=== PATIENT | female | born 1945 | race African-American/Black ===

== ENCOUNTER 2017-02-14 19:49 | Inpatient (IN) | payer OTHER ==
[2017-02-14] MEDS ORDERED: traMADol HCL 50 MG TABLET PO ONE (20:43)
--- NOTE | 2017-02-14 20:48 | PDOC ---
History of Present Illness <Coco Vallecillo - Last Filed: 02/14/17 22:28> <Purnima Carrero - Last Filed: 02/14/17 22:47> - General History Source: Patient Exam Limitations: No Limitations - History of Present Illness Initial Comments: 02/14/17 20:44 Patient is a 71 year old female with h/o HTN, PVD, b/l lower ext ulcer, Vit D diff, anemia c/o b/l lower ext swelling and pain. States she has had a chronic wound for years, doing wound care in the wound center, has worsened lately with more pain, discharge. Pain is 10/10, sharp, continuos, stabbing, in the calf. States the wound does not hurt. She was seen in the Wound center on Thursday and inst to come to the ED for admission. Patient just completed course of Augmentin. Denies fever, chills, nausea, vomiting PMD: Dr Shannon Wound: Dr. Kevin PMHx: as above PSocHx: neg cig, drug, etoh ALL: Iodine GENERAL/CONSTITUTIONAL: [No fever or chills. No weakness. No weight change.] HEAD, EYES, EARS, NOSE AND THROAT: [No change in vision. No ear pain or discharge. No sore throat.] CARDIOVASCULAR: [No chest pain or shortness of breath.] RESPIRATORY: [No cough, wheezing, or hemoptysis.] GASTROINTESTINAL: [No nausea, vomiting, diarrhea or constipation. No rectal bleeding.] GENITOURINARY: [No dysuria, frequency, or change in urination.] MUSCULOSKELETAL: [No joint or muscle swelling or pain. No neck or back pain.] SKIN AND BREASTS: (+) b/l lower ext wound, NEUROLOGIC: [No headache, vertigo, loss of consciousness, or loss of sensation.] PSYCHIATRIC: [No depression or anxiety.] ENDOCRINE: [No increased thirst. No abnormal weight change.] HEMATOLOGIC/LYMPHATIC: [No anemia, easy bleeding, or history of blood clots.] ALLERGIC/IMMUNOLOGIC: [No hives or skin allergy. No latex allergy.] GENERAL: [The patient is awake, alert, and fully oriented, in no acute distress. ] HEAD: [Normal with no signs of trauma.] EYES: [Pupils equal, round and reactive to light, extraocular movements intact, sclera anicteric, conjunctiva clear.] ENT: [Ears normal, nares patent, oropharynx clear without exudates. Moist mucous membranes.] NECK: [Normal range of motion, supple without lymphadenopathy, JVD, or masses.] LUNGS: [Breath sounds equal, clear to auscultation bilaterally. No wheezes, and no crackles.] HEART: [Regular rate and rhythm, normal S1 and S2 without murmur, rub.] ABDOMEN: [Soft, nontender, normoactive bowel sounds. No guarding, no rebound. No masses.] EXTREMITIES: [Normal range of motion, mild edema. No clubbing or cyanosis.(+) tenderness to b/l calves, (+) warmth (+) erythema, wound with necrotic tissue. (+) yellow discharge from wounds NEUROLOGICAL: [Cranial nerves II through XII grossly intact. Normal speech, normal gait.] PSYCH: [Normal mood, normal affect.] SKIN: [Warm, leg lower ext with wound 9x 7cm, right with 5x 7cm wound, hyperpigmention of the lower ext ] <Fay Bassett - Last Filed: 02/15/17 00:33> - General Chief Complaint: Wound Stated Complaint: PAIN Time Seen by Provider: 02/14/17 20:24 Past History <Coco Vallecillo - Last Filed: 02/14/17 22:28> <Purnima Carrero - Last Filed: 02/14/17 22:47> - Past Medical History COPD: No HTN: Yes - Suicide/Smoking/Psychosocial Hx Smoking History: Never smoked Have you smoked in the past 12 months: No Hx Alcohol Use: No Drug/Substance Use Hx: No <Fay Bassett - Last Filed: 02/15/17 00:33> - Past Medical History Allergies/Adverse Reactions: Allergies Allergy/AdvReac Type Severity Reaction Status Date / Time iodine Allergy Itching Verified 02/14/17 19:56 Home Medications: Ambulatory Orders Aspirin [Aspirin EC] 1 tab PO DAILY 06/02/14 Losartan Potassium 50 mg PO DAILY 11/16/15 Acetaminophen [Tylenol -] 500 mg PO Q4H PRN 02/14/17 Ferrous Sulfate [Feosol] 325 mg PO BID 02/14/17 Loratadine 10 mg PO DAILY 02/14/17 Metoprolol Tartrate 50 mg PO DAILY 02/14/17 *Physical Exam - Vital Signs Last Vital Signs Temp Pulse Resp BP Pulse Ox 97.6 F 82 18 181/65 99 02/14/17 19:52 02/14/17 19:52 02/14/17 19:52 02/14/17 19:52 02/14/17 19:52 <Coco Vallecillo - Last Filed: 02/14/17 22:28> - Vital Signs Last Vital Signs Temp Pulse Resp BP Pulse Ox 97.6 F 82 18 181/65 99 02/14/17 19:52 02/14/17 19:52 02/14/17 19:52 02/14/17 19:52 02/14/17 19:52 <Purnima Carrero - Last Filed: 02/14/17 22:47> - Vital Signs Last Vital Signs Temp Pulse Resp BP Pulse Ox 97.6 F 82 18 181/65 99 02/14/17 19:52 02/14/17 19:52 02/14/17 19:52 02/14/17 19:52 02/14/17 19:52 <Fay Bassett - Last Filed: 02/15/17 00:33> ED Treatment Course - LABORATORY CBC & Chemistry Diagram: 02/14/17 21:37 02/14/17 21:37 - ADDITIONAL ORDERS Additional order review: Laboratory Results 02/14/17 21:37 Sodium 134 L Potassium 4.2 Chloride 100 Carbon Dioxide 28 Anion Gap 6 L BUN 8 Creatinine 0.6 Creat Clearance w eGFR > 60 Random Glucose 116 H Calcium 8.3 L Total Bilirubin 0.4 AST 28 ALT 21 Alkaline Phosphatase 93 Total Protein 8.0 Albumin 2.7 L 02/14/17 21:37 RBC 3.38 L MCV 79.8 L MCHC 32.2 RDW 15.0 MPV 6.3 L Neutrophils % 67.1 Lymphocytes % 23.0 Monocytes % 7.1 Eosinophils % 2.2 Basophils % 0.6 - Medications Given in the ED: ED Medications Discontinued Medications Generic Name Dose Route Start Last Admin Trade Name Freq PRN Reason Stop Dose Admin Tramadol HCl 50 mg 02/14/17 20:43 02/14/17 21:18 Ultram - PO 02/14/17 20:44 50 mg ONCE ONE Administration <Coco Vallecillo - Last Filed: 02/14/17 22:28> - LABORATORY CBC & Chemistry Diagram: 02/14/17 21:37 02/14/17 21:37 - ADDITIONAL ORDERS Additional order review: Laboratory Results 02/14/17 21:37 Sodium 134 L Potassium 4.2 Chloride 100 Carbon Dioxide 28 Anion Gap 6 L BUN 8 Creatinine 0.6 Creat Clearance w eGFR > 60 Random Glucose 116 H Calcium 8.3 L Total Bilirubin 0.4 AST 28 ALT 21 Alkaline Phosphatase 93 Total Protein 8.0 Albumin 2.7 L 02/14/17 21:37 RBC 3.38 L MCV 79.8 L MCHC 32.2 RDW 15.0 MPV 6.3 L Neutrophils % 67.1 Lymphocytes % 23.0 Monocytes % 7.1 Eosinophils % 2.2 Basophils % 0.6 - Medications Given in the ED: ED Medications Discontinued Medications Generic Name Dose Route Start Last Admin Trade Name Freq PRN Reason Stop Dose Admin Tramadol HCl 50 mg 02/14/17 20:43 02/14/17 21:18 Ultram - PO 02/14/17 20:44 50 mg ONCE ONE Administration <Purnima Carrero - Last Filed: 02/14/17 22:47> - LABORATORY CBC & Chemistry Diagram: 02/14/17 21:37 02/14/17 21:37 - RADIOLOGY Radiology Studies Ordered: Category Date Time Status DUPLEX VASCUL US-2LEGS [US] Stat Ultrasound 02/14/17 20:43 Ordered <Fay Bassett - Last Filed: 02/15/17 00:33> Medical Decision Making - Medical Decision Making 02/14/17 22:28 Patient Name: IRVING LERMA THIS IS A PRELIMINARY REPORT FROM [facility] DATE OF SERVICE: 2017-02-14 21:06:15 IMAGES: 45 EXAM: US LOWER EXTREMITY VENOUS DOPPLER HISTORY: Bilateral leg swelling COMPARISON: None. FINDINGS: Bilaterally, no evidence of DVT noted. Mild bilateral inguinal adenopathy. Bilateral calf soft tissue swelling. <Coco Vallecillo - Last Filed: 02/14/17 22:28> - Medical Decision Making 02/14/17 22:32 10:30pm- Call was placed to Dr. Turner's answering service, awaiting call back. 02/14/17 22:48 Exam: US LOWER EXTREMITY VENOUS DOPPLER Read by: Dr. Randy Hart FINDINGS: Bilaterally, no evidence of DVT noted. Mild bilateral inguinal adenopathy. Bilateral calf soft tissue swelling. <Purnima Carrero - Last Filed: 02/14/17 22:47> - Medical Decision Making 02/14/17 20:44 Patient is a 71 year old female with h/o HTN, PVD, b/l lower ext ulcer, Vit D diff, anemia c/o b/l lower ext swelling and pain, sent for admission for the wound. labs, doppler leg pain meds antibiotics consult with Dr. Kevin 02/14/17 21:[address] Turner and will admit when the labs resulted 02/14/17 22:43 Case d/w with Dr. Turner labs dicussed will admit 02/14/17 22:45 Laboratory Tests 02/14/17 02/14/17 21:37 21:37 WBC 6.5 Hgb 8.7 L Hct 27.0 L Plt Count 363 Sodium 134 L Potassium 4.2 Chloride 100 Carbon Dioxide 28 Anion Gap 6 L BUN 8 Creatinine 0.6 Random Glucose 116 H 02/15/17 00:31 EKG SR rate 77, NAD, (-) ST-T wave changes CXR neg as read by nj Doppler neg for DVT <Fay Bassett - Last Filed: 02/15/17 00:33> *DC/Admit/Observation/Transfer <Coco Vallecillo - Last Filed: 02/14/17 22:28> - Attestations Scribe Attestion: 02/14/17 22:32 Documentation prepared by Purnima Carrero, acting as chief medical physicist for Coco Vallecillo MD. <Purnima Carrero - Last Filed: 02/14/17 22:47> - Discharge Dispostion Admit: Yes <Fay Bassett - Last Filed: 02/15/17 00:33> Diagnosis at time of Disposition: Infected wound - Discharge Dispostion Condition at time of disposition: Stable
[2017-02-14] MEDS ORDERED: traMADol HCL 50 MG TABLET ONE (21:12)
[2017-02-14 21:44] LABS: BASOPHIL 0.6 % (0-2.0); EOSINOPHIL 2.2 % (0-4.5); MCH 25.7 pg (25.7-33.7); MCHC 32.2 g/dl (32.0-36.0); MEAN CELL VOLUME 79.8 fl (80-96); MEAN PLT VOLUME 6.3 fl (7.5-11.1); NEUTROPHILS 67.1 % (42.8-82.8); PLATELET COUNT 363 K/MM3 (134-434); WHITE BLOOD COUNT 6.5 K/mm3 (4.0-10.0)
[2017-02-14 22:15] LABS: ALBUMIN 2.7 g/dl (3.4-5.0); ALK PHOS 93 U/L (45-117); ANION GAP 6 (8-16); BILIRUBIN,TOTAL 0.4 mg/dL (0.2-1.0); CALCIUM 8.3 mg/dL (8.5-10.1); CO2 28 mmol/L (21-32); CREATININE 0.6 mg/dL (0.55-1.02); GLUCOSE,RANDOM 116 mg/dL (74-106); SGOT/AST 28 U/L (15-37); SGPT/ALT 21 U/L (12-78)
[2017-02-14] MEDS ORDERED: VANCOMYCIN 1,000 MG in DEXTROSE 5%-WATER - 250 ML IVPB ONE (22:29)
[2017-02-14] MEDS ORDERED: AMPICILLIN NA/SULBACTAM NA 3 GM in SODIUM CHLORIDE 100 ML IVPB ONE (22:29)
[2017-02-14] MEDS ORDERED: VANCOMYCIN 1 GRAM (PRE-DOCKED) 1,000 MG/250 ML BAG IVPB ONE (22:49)
[2017-02-15 00:17] VITALS: BMI 23.0
[2017-02-15] MEDS ORDERED: IBUPROFEN 600 MG TABLET (FP) PO ONE (00:32)
[2017-02-15] MEDS: ACETAMINOPHEN 325 MG TABLET (FP) PO PRN ×3 (00:58→15:47)
[2017-02-15] MEDS: AMINO ACIDS/PROTEIN HYDROLYS 30 ML LIQUID.PKT PO SCH ×2 (08:05→17:42)
[2017-02-15 08:29] LABS: ALBUMIN 2.5 g/dl (3.4-5.0); CALCIUM 8.4 mg/dL (8.5-10.1)
[2017-02-15 08:32] LABS: ALK PHOS 81 U/L (45-117); ANION GAP 7 (8-16); BILIRUBIN,TOTAL 0.5 mg/dL (0.2-1.0); CO2 30 mmol/L (21-32); CREATININE 0.6 mg/dL (0.55-1.02); GLUCOSE,RANDOM 127 mg/dL (74-106); SGOT/AST 28 U/L (15-37); SGPT/ALT 19 U/L (12-78); TOT PROT 7.1 g/dl (6.4-8.2)
[2017-02-15 08:41] LABS: MCH 26.4 pg (25.7-33.7); MCHC 32.5 g/dl (32.0-36.0); MEAN CELL VOLUME 81.1 fl (80-96); MEAN PLT VOLUME 6.7 fl (7.5-11.1); PLATELET COUNT 309 K/MM3 (134-434); RDW 14.6 % (11.6-15.6); WHITE BLOOD COUNT 7.2 K/mm3 (4.0-10.0)
--- NOTE | 2017-02-15 08:47 | EKG ---
Test Reason : Blood Pressure : / mmHG Vent. Rate : 077 BPM Atrial Rate : 077 BPM P-R Int : 168 ms QRS Dur : 078 ms QT Int : 360 ms P-R-T Axes : 027 042 039 degrees QTc Int : 407 ms NORMAL SINUS RHYTHM CANNOT RULE OUT ANTERIOR INFARCT , AGE UNDETERMINED ABNORMAL ECG NO PREVIOUS ECGS AVAILABLE Confirmed by ELPIDIO STOUT MD ([id number]) on 02/15/2017 8:47:29 AM Referred By: Confirmed By:ELPIDIO STOUT MD
[2017-02-15] MEDS: HEPARIN NA (PORCINE) 5,000 UNITS/ML 1ML VIAL SQ SCH ×2 (09:32→22:03)
[2017-02-15] MEDS: METOPROLOL TARTRATE 50 MG TABLET (FP) PO SCH (09:32)
[2017-02-15] MEDS: LOSARTAN POTASSIUM 50 MG TABLET (FP) PO SCH (09:32)
--- NOTE | 2017-02-15 11:53 | HP ---
Admitting History and Physical - Primary Care Physician PCP: Mireya Turner - Admission Chief Complaint: WORSENING LEG ULCERS History of Present Illness: Patient is a 71 year old female with h/o HTN, PVD, b/l lower ext ulcer, Vit D diff, anemia c/o b/l lower ext swelling and pain. States she has had a chronic wound for years, doing wound care in the wound center, has worsened lately with more pain, discharge. Pain is 10/10, sharp, continuos, stabbing, in the calf. States the wound does not hurt. She was seen in the Wound center on Thursday and inst to come to the ED for admission. Patient just completed course of Augmentin. Denies fever, chills, nausea, vomiting History Source: Patient Limitations to Obtaining History: No Limitations - Past Medical History Cardiovascular: Yes: HTN - Smoking History Smoking history: Never smoked Have you smoked in the past 12 months: No - Alcohol/Substance Use Hx Alcohol Use: No Home Medications - Allergies Allergies/Adverse Reactions: Allergies Allergy/AdvReac Type Severity Reaction Status Date / Time iodine Allergy Itching Verified 02/14/17 19:56 - Home Medications Home Medications: Ambulatory Orders Aspirin [Aspirin EC] 1 tab PO DAILY 06/02/14 Losartan Potassium 50 mg PO DAILY 11/16/15 Acetaminophen [Tylenol -] 500 mg PO Q4H PRN 02/14/17 Ferrous Sulfate [Feosol] 325 mg PO BID 02/14/17 Loratadine 10 mg PO DAILY 02/14/17 Metoprolol Tartrate 50 mg PO DAILY 02/14/17 Review of Systems - Review of Systems Constitutional: reports: No Symptoms Eyes: reports: No Symptoms HENT: reports: No Symptoms Neck: reports: No Symptoms Cardiovascular: reports: No Symptoms Respiratory: reports: No Symptoms Gastrointestinal: reports: No Symptoms Genitourinary: reports: No Symptoms Musculoskeletal: reports: No Symptoms Integumentary: reports: Rash, Wound Neurological: reports: No Symptoms Endocrine: reports: No Symptoms Hematology/Lymphatic: reports: No Symptoms Psychiatric: reports: No Symptoms Physical Examination Vital Signs: Vital Signs Temperature 98.3 F 02/15/17 06:00 Pulse Rate 77 02/15/17 06:00 Respiratory Rate 18 02/15/17 06:00 Blood Pressure 147/62 02/15/17 06:00 O2 Sat by Pulse Oximetry (%) 100 02/15/17 00:22 Constitutional: Yes: Mild Distress Eyes: Yes: WNL HENT: Yes: WNL Neck: Yes: WNL Cardiovascular: Yes: WNL Respiratory: Yes: WNL Gastrointestinal: Yes: WNL Renal/: Yes: WNL Musculoskeletal: Yes: WNL Extremities: Yes: Other Edema: No Peripheral Pulses WNL: Yes Integumentary: Yes: Pressure Ulcer, Venous Stasis Changes, Other Wound/Incision: Yes: Dressing Dry and Intact Neurological: Yes: WNL ...Motor Strength: WNL Psychiatric: Yes: WNL Labs: CBC, BMP 02/15/17 07:00 02/15/17 07:00 Imaging - Results Ultrasound: Report Reviewed Problem List - Problems (1) Infected wound Code(s): T14.8XXA - OTHER INJURY OF UNSPECIFIED BODY REGION, INITIAL ENCOUNTER; L08.9 - LOCAL INFECTION OF THE SKIN AND SUBCUTANEOUS TISSUE, UNSP (2) 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
[2017-02-15 13:52] LABS: ERYTHROCYTE SEDIMENTATION RATE 40 mm/hr (0-30)
--- NOTE | 2017-02-15 14:45 | CON.ID ---
Consult Consult Specialty:: Infectious Disease - History of Present Illness Chief Complaint: LE ulcers with pain/drainage History of Present Illness: 71 y.o. female with history of HTN, anemia, PVD with chronic nonhealing b/l LE ulcers (initially noted 2001 with periods of healing) being followed in wound care clinic . She has been having severe pain and drainage for over a week and has completed a one wk course of augmentin (last dose on thursday). Pt is still with pain and malodorous drainage from the ulcers. Denies fever or chills and has no other complaints. - History Source History Provided By: Patient Limitations to Obtaining History: No Limitations - Past Medical History Cardio/Vascular: Yes: HTN Additional Medical History: PVD - Alcohol/Substance Use Hx Alcohol Use: No - Smoking History Smoking history: Never smoked Have you smoked in the past 12 months: No - Social History Usual Living Arrangement: Other (with her daughter) History of Recent Travel: No Home Medications - Allergies Allergies/Adverse Reactions: Allergies Allergy/AdvReac Type Severity Reaction Status Date / Time iodine Allergy Itching Verified 02/14/17 19:56 - Home Medications Home Medications: Ambulatory Orders Aspirin [Aspirin EC] 1 tab PO DAILY 06/02/14 Losartan Potassium 50 mg PO DAILY 11/16/15 Acetaminophen [Tylenol -] 500 mg PO Q4H PRN 02/14/17 Ferrous Sulfate [Feosol] 325 mg PO BID 02/14/17 Loratadine 10 mg PO DAILY 02/14/17 Metoprolol Tartrate 50 mg PO DAILY 02/14/17 Review of Systems - Review of Systems Constitutional: reports: No Symptoms Eyes: reports: No Symptoms HENT: reports: No Symptoms Neck: reports: No Symptoms Cardiovascular: reports: No Symptoms Respiratory: reports: No Symptoms Gastrointestinal: reports: No Symptoms Genitourinary: reports: No Symptoms Breasts: reports: No Symptoms Reported Musculoskeletal: reports: No Symptoms Integumentary: reports: Wound (b/l LE ulcers with pain in calf and drainage) Neurological: reports: No Symptoms Endocrine: reports: No Symptoms Hematology/Lymphatic: reports: No Symptoms Psychiatric: reports: No Symptoms Physical Exam Vital Signs: Vital Signs Temperature 99.0 F 02/15/17 09:00 Pulse Rate 84 02/15/17 09:00 Respiratory Rate 20 02/15/17 09:00 Blood Pressure 158/78 02/15/17 09:00 O2 Sat by Pulse Oximetry (%) 100 02/15/17 09:00 Constitutional: Yes: No Distress, Calm Neck: Yes: Supple Cardiovascular: Yes: Regular Rate and Rhythm Respiratory: Yes: CTA Bilaterally Gastrointestinal: Yes: Normal Bowel Sounds, Soft Renal/: Yes: WNL Musculoskeletal: Yes: WNL Extremities: Yes: Other (b/l LE ulcers, hyperpigmentation) Integumentary: Yes: Venous Stasis Changes (LLE 16x18 cm ulcer with chronic hyperpigmentation, yellow malodorous drainage and pain, warm to touch, extending from upper ankle to calves RLE 8x6 cm ulcer with malodor, tender LE b/ l) Wound/Incision: Yes: Draining (yellow discharge) Neurological: Yes: Alert, Oriented Psychiatric: Yes: Alert Labs: CBC, BMP 02/15/17 07:00 02/15/17 07:00 Imaging - Results Other: Report Reviewed (LE dopplers (-) for DVT b/l) Problem List - Problems (1) Infected wound Code(s): T14.8XXA - OTHER INJURY OF UNSPECIFIED BODY REGION, INITIAL ENCOUNTER; L08.9 - LOCAL INFECTION OF THE SKIN AND SUBCUTANEOUS TISSUE, UNSP (2) 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 female with PVD and chronic nonhealing b/l LE ulcers/stasis dermatitis admitted for pain and malodorous drainage - suggest continue Unasyn for now , add doxycycline po - obtain wound cultures - wound care evaluation - pain control - vascular workup
[2017-02-15] MEDS ORDERED: DOXYCYCLINE HYCLATE 100 MG CAPSULE PO SCH (16:00)
[2017-02-15] MEDS: AMPICILLIN NA/SULBACTAM NA 3 GM in SODIUM CHLORIDE 100 ML IVPB SCH ×2 (17:42→22:00)
[2017-02-15] MEDS: DOXYCYCLINE HYCLATE 100 MG CAPSULE PO SCH (17:43)
[2017-02-16] MEDS: AMPICILLIN NA/SULBACTAM NA 3 GM in SODIUM CHLORIDE 100 ML IVPB SCH ×4 (02:29→22:04)
[2017-02-16] MEDS: ACETAMINOPHEN 325 MG TABLET (FP) PO PRN ×2 (05:06→15:00)
[2017-02-16] MEDS ORDERED: PT OWN MED DRAWER 7, Y5N ONE ×3 (08:24→21:50)
[2017-02-16] MEDS: AMINO ACIDS/PROTEIN HYDROLYS 30 ML LIQUID.PKT PO SCH ×2 (08:28→17:48)
[2017-02-16] MEDS: HEPARIN NA (PORCINE) 5,000 UNITS/ML 1ML VIAL SQ SCH ×2 (10:06→22:05)
[2017-02-16] MEDS: METOPROLOL TARTRATE 50 MG TABLET (FP) PO SCH (10:06)
[2017-02-16] MEDS: LOSARTAN POTASSIUM 50 MG TABLET (FP) PO SCH (10:06)
[2017-02-16] MEDS: DOXYCYCLINE HYCLATE 100 MG CAPSULE PO SCH ×2 (10:06→17:48)
--- NOTE | 2017-02-16 13:28 | CONSULT ---
Consult Consult Specialty:: Vascular surgery Referred by:: Dr. Escalona Reason for Consultation:: vascular ulcers bilatreral lower extremities - History of Present Illness History of Present Illness: 71F h/o HTN, PVD, b/l lower ext ulcer, Vit D diff, anemia c/o b/l lower ext swelling and pain. patient well known to wound care clinic presents to the ED after being sent from wound center for bilateral lower extremity worsening venous stasis ulcers. She states the wounds have worsened lately with more pain and discharge. Pain is 10/10, sharp, continuos, stabbing, in the calf. . Patient just completed course of Augmentin. Denies nausea vomiting chills chest pain or shortness of breath. Patient had a Tmax of 100.2 orally this morning at 0530. patient has a long standing history of non compliance with treatment. She does not wear compreession stockings and stays standing on her feet all day and does not elevate them. - History Source History Provided By: Patient, Medical Record Limitations to Obtaining History: No Limitations - Past Medical History Cardio/Vascular: Yes: HTN Additional Medical History: PVD - Alcohol/Substance Use Hx Alcohol Use: No - Smoking History Smoking history: Never smoked Have you smoked in the past 12 months: No - Social History Usual Living Arrangement: Other (with her daughter) History of Recent Travel: No Home Medications - Allergies Allergies/Adverse Reactions: Allergies Allergy/AdvReac Type Severity Reaction Status Date / Time iodine Allergy Itching Verified 02/14/17 19:56 - Home Medications Home Medications: Ambulatory Orders Aspirin [Aspirin EC] 1 tab PO DAILY 06/02/14 Losartan Potassium 50 mg PO DAILY 11/16/15 Acetaminophen [Tylenol -] 500 mg PO Q4H PRN 02/14/17 Ferrous Sulfate [Feosol] 325 mg PO BID 02/14/17 Loratadine 10 mg PO DAILY 02/14/17 Metoprolol Tartrate 50 mg PO DAILY 02/14/17 Review of Systems Findings/Remarks: fever. Bilateral lower extremity wounds worsening with drainage Physical Exam Vital Signs: Vital Signs Temperature 98.3 F 02/16/17 09:31 Pulse Rate 88 02/16/17 09:31 Respiratory Rate 20 02/16/17 09:31 Blood Pressure 151/65 02/16/17 09:31 O2 Sat by Pulse Oximetry (%) 100 02/16/17 09:00 Constitutional: Yes: Well Nourished, No Distress, Calm Eyes: Yes: Conjunctiva Clear HENT: Yes: Atraumatic Neck: Yes: Supple Cardiovascular: Yes: Regular Rate and Rhythm Respiratory: Yes: CTA Bilaterally Gastrointestinal: Yes: Soft Extremities: Yes: Other (Bounding popliteal pulses. RLE ulcer just above medial malleolus with necrotic skin edges, some granulation tissue, and fibrinous exudate. Dry No purulence. Warm. Good cap refill. LLE. large wound medially and posteriorly with necrotic skin edges some granulation tissue and fibrinous exudate. No purulence. Warm. Slightly foul smelling. serous drainage) Edema: No Peripheral Pulses WNL: Yes (DP pulses faint bilaterally. DP 2+ RLE LLE could not palpate 2/2 wound ) Neurological: Yes: Alert, Oriented Psychiatric: Yes: Alert, Oriented Labs: CBC, BMP 02/15/17 07:00 02/15/17 07:00 Imaging - Results Chest X-ray: Report Reviewed, Image Reviewed Ultrasound: Report Reviewed Assessment/Plan 71F with multiple medical problems and chronic venous stasis ulcers s/p venous ablation presents to the ED from wound care clinic for worsening pain and drainage of bilateral lower extremities especially the left leg. Problem List: HTN PVD-Venous chronic venous staisis ulcer-now possible infected Plan: ID consult appreciated continue ABx-doxycycline and unasyn dressing changes with santyl wet to dry dressing and HAWA wrap for compression will need to go to OR for debridement will schedule for this Thursday-patient informed Will need general anesthesia CTA to evaluate for arterial disease as a cause for non healing although non compliance is likely the biggest contributing factor-patient non smoker and not a diabetic. patient allergic to Iodine will premedicate with prednisone and benadryl and do CTA tomorrow AM at 8am already spoke with noc technician Full set of pre-op labs and type and screen Thursday morning patient seen and case discussed with attending Dr. Kevin
--- NOTE | 2017-02-16 15:05 | PN ---
Progress Note, Physician History of Present Illness: Pt c/o b/L LE pain. Mild temperature elevation to 100.2F early in the a.m. , currently afebrile. Denies any specific complaints. - Current Medication List Current Medications: Active Medications Acetaminophen (Tylenol -) 650 mg PO Q6H PRN PRN Reason: FEVER OR PAIN Last Admin: 02/16/17 05:06 Dose: 650 mg Amino Acids (Prosource No Carb Liquid Pkt) 30 ml PO BID@0800,1730 [facility] Last Admin: 02/16/17 08:28 Dose: 30 ml Collagenase (Santyl -) 1 applic TP DAILY [facility] Diphenhydramine HCl (Benadryl Injection -) 50 mg IVPUSH ONCE ONE Stop: 02/17/17 07:01 Doxycycline Hyclate (Vibramycin -) 100 mg PO BID@1000,1800 [facility] Last Admin: 02/16/17 10:06 Dose: 100 mg Heparin Sodium (Porcine) (Heparin -) 5,000 unit SQ BID [facility] Last Admin: 02/16/17 10:06 Dose: 5,000 unit Ampicillin Sodium/Sulbactam (Sodium 3 gm/ Sodium Chloride) 100 mls @ 200 mls/ hr IVPB Q6H-IV [facility] Last Admin: 02/16/17 09:27 Dose: 200 mls/hr Losartan Potassium (Cozaar -) 50 mg PO DAILY [facility] Last Admin: 02/16/17 10:06 Dose: 50 mg Metoprolol Tartrate (Lopressor -) 50 mg PO DAILY [facility] Last Admin: 02/16/17 10:06 Dose: 50 mg Prednisone 40 mg/ Prednisone (10 mg) 50 mg PO Q6H [facility] Stop: 02/17/17 07:01 - Objective Vital Signs: Vital Signs Temperature 98.3 F 02/16/17 09:31 Pulse Rate 88 02/16/17 09:31 Respiratory Rate 20 02/16/17 09:31 Blood Pressure 151/65 02/16/17 09:31 O2 Sat by Pulse Oximetry (%) 100 02/16/17 09:00 Constitutional: Yes: No Distress Cardiovascular: Yes: Regular Rate and Rhythm Respiratory: Yes: Regular Gastrointestinal: Yes: Normal Bowel Sounds, Soft Integumentary: Yes: Venous Stasis Changes, Other (B/L Leg venous stasis ulcers with necrotic edges, malodorous drainage, +tenderness) Labs: CBC, BMP 02/15/17 07:00 02/15/17 07:00 Problem List - Problems (1) Infected wound Code(s): T14.8XXA - OTHER INJURY OF UNSPECIFIED BODY REGION, INITIAL ENCOUNTER; L08.9 - LOCAL INFECTION OF THE SKIN AND SUBCUTANEOUS TISSUE, UNSP (2) 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 female with PVD and chronic nonhealing b/l LE ulcers/stasis dermatitis admitted for pain and malodorous drainage, low grade fever - continue current antibiotics for now, monitor temps, will consider adjust - wound cultures taken - f/u results - vascular surgery evaluation done, pt for CTA and debridement - pain control, wound care pt currently stable
--- NOTE | 2017-02-16 15:16 | PN ---
Progress Note (short form) - Note Progress Note: Vascular Surgery Pt seen and examined. Will do debridement of bl lower ext on thu. Will also do CTA to look at arterial runoff. Santyl and selina for compression. ID on case for IV antibiotics Evelio Kevin DO
[2017-02-16] MEDS: COLLAGENASE CLOSTRIDIUM HIST. 30 GRAMS TUBE TP SCH (15:24)
--- NOTE | 2017-02-16 18:08 | PN ---
Progress Note, Physician Chief Complaint: AWAKE ALERT EATING DINNER NAD - Current Medication List Current Medications: Active Medications Acetaminophen (Tylenol -) 650 mg PO Q6H PRN PRN Reason: FEVER OR PAIN Last Admin: 02/16/17 15:00 Dose: 650 mg Amino Acids (Prosource No Carb Liquid Pkt) 30 ml PO BID@0800,1730 [facility] Last Admin: 02/16/17 17:48 Dose: 30 ml Collagenase (Santyl -) 1 applic TP DAILY [facility] Last Admin: 02/16/17 15:24 Dose: 1 applic Diphenhydramine HCl (Benadryl Injection -) 50 mg IVPUSH ONCE ONE Stop: 02/17/17 07:01 Doxycycline Hyclate (Vibramycin -) 100 mg PO BID@1000,1800 [facility] Last Admin: 02/16/17 17:48 Dose: 100 mg Heparin Sodium (Porcine) (Heparin -) 5,000 unit SQ BID [facility] Last Admin: 02/16/17 10:06 Dose: 5,000 unit Ampicillin Sodium/Sulbactam (Sodium 3 gm/ Sodium Chloride) 100 mls @ 200 mls/ hr IVPB Q6H-IV [facility] Last Admin: 02/16/17 15:00 Dose: 200 mls/hr Losartan Potassium (Cozaar -) 50 mg PO DAILY [facility] Last Admin: 02/16/17 10:06 Dose: 50 mg Metoprolol Tartrate (Lopressor -) 50 mg PO DAILY [facility] Last Admin: 02/16/17 10:06 Dose: 50 mg Prednisone 40 mg/ Prednisone (10 mg) 50 mg PO Q6H [facility] Stop: 02/17/17 07:01 - Objective Vital Signs: Vital Signs Temperature 98.9 F 02/16/17 15:00 Pulse Rate 84 02/16/17 15:00 Respiratory Rate 20 02/16/17 15:00 Blood Pressure 160/72 02/16/17 15:00 O2 Sat by Pulse Oximetry (%) 100 02/16/17 09:00 Constitutional: Yes: No Distress Eyes: Yes: WNL HENT: Yes: WNL Neck: Yes: WNL Cardiovascular: Yes: WNL Respiratory: Yes: WNL Gastrointestinal: Yes: WNL Genitourinary: Yes: WNL Musculoskeletal: Yes: WNL Extremities: Yes: Other Edema: No Peripheral Pulses WNL: Yes Integumentary: Yes: Pressure Ulcer, Venous Stasis Changes Wound/Incision: Yes: Dressing Dry and Intact Neurological: Yes: WNL ...Motor Strength: WNL Psychiatric: Yes: WNL Labs: CBC, BMP 02/15/17 07:00 02/15/17 07:00 Problem List - Problems (1) Infected wound Code(s): T14.8XXA - OTHER INJURY OF UNSPECIFIED BODY REGION, INITIAL ENCOUNTER; L08.9 - LOCAL INFECTION OF THE SKIN AND SUBCUTANEOUS TISSUE, UNSP (2) 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
[2017-02-16] MEDS ORDERED: predniSONE 20 MG TABLET (UD) ONE (18:31)
[2017-02-16] MEDS ORDERED: predniSONE 10 MG TABLET (UD) ONE (18:32)
[2017-02-16] MEDS: PREDNISONE 40 MG, PREDNISONE 10 MG PO SCH (18:33)
[2017-02-16] MEDS ORDERED: predniSONE 20 MG TABLET (UD) PO ONE (19:00)
[2017-02-17] MEDS ORDERED: predniSONE 20 MG TABLET (UD) PO ONE (00:01)
[2017-02-17] MEDS ORDERED: predniSONE 20 MG TABLET (UD) ONE ×2 (02:33→06:58)
[2017-02-17] MEDS ORDERED: predniSONE 10 MG TABLET (UD) ONE ×2 (02:33→06:58)
[2017-02-17] MEDS ORDERED: PT OWN MED DRAWER 7, Y5N ONE ×5 (02:34→20:36)
[2017-02-17] MEDS: PREDNISONE 40 MG, PREDNISONE 10 MG PO SCH ×2 (02:35→07:00)
[2017-02-17] MEDS: AMPICILLIN NA/SULBACTAM NA 3 GM in SODIUM CHLORIDE 100 ML IVPB SCH ×4 (02:45→20:38)
[2017-02-17] MEDS: ACETAMINOPHEN 325 MG TABLET (FP) PO PRN ×2 (02:54→16:43)
[2017-02-17 06:06] LABS: SERUM IRON 19 ug/dL (27-139); TOTAL IRON BINDING CAPACITY 281 ug/dL (250-450); UIBC 262 ug/dL (118-369)
[2017-02-17] MEDS ORDERED: predniSONE 10 MG TABLET (UD) PO ONE (07:00)
[2017-02-17] MEDS: METOPROLOL TARTRATE 50 MG TABLET (FP) PO SCH (10:37)
[2017-02-17] MEDS: LOSARTAN POTASSIUM 50 MG TABLET (FP) PO SCH (10:37)
[2017-02-17] MEDS: DOXYCYCLINE HYCLATE 100 MG CAPSULE PO SCH ×2 (10:37→18:11)
[2017-02-17] MEDS: AMINO ACIDS/PROTEIN HYDROLYS 30 ML LIQUID.PKT PO SCH ×2 (10:39→16:42)
[2017-02-17] MEDS: HEPARIN NA (PORCINE) 5,000 UNITS/ML 1ML VIAL SQ SCH ×2 (11:00→22:27)
[2017-02-17] MEDS: COLLAGENASE CLOSTRIDIUM HIST. 30 GRAMS TUBE TP SCH (11:37)
--- NOTE | 2017-02-17 13:08 | SPA.PREOP ---
- PRE-OP NOTE Dx: PVD and infected chronic venous stasis ulcers Planned Procedure: bilateral lower extremtiy debridement Surgeon: Evelio Kevin Consent: To be obtained by surgeon after all risks, benefits and alternatives explained to patient. Last Vital Signs Temp Pulse Resp BP Pulse Ox 97.6 F 85 18 145/69 100 02/17/17 05:42 02/17/17 05:42 02/17/17 05:42 02/17/17 05:42 02/16/17 21:00 Lab Results WBC 7.2 K/mm3 (4.0-10.0) 02/15/17 07:00 RBC 3.17 M/mm3 (3.60-5.2) L 02/15/17 07:00 Hgb 8.4 GM/dL (10.7-15.3) L 02/15/17 07:00 Hct 25.7 % (32.4-45.2) L 02/15/17 07:00 MCV 81.1 fl (80-96) 02/15/17 07:00 MCHC 32.5 g/dl (32.0-36.0) 02/15/17 07:00 RDW 14.6 % (11.6-15.6) 02/15/17 07:00 Plt Count 309 K/MM3 (134-434) 02/15/17 07:00 Sodium 137 mmol/L (136-145) 02/15/17 07:00 Potassium 4.1 mmol/L (3.5-5.1) 02/15/17 07:00 Chloride 100 mmol/L (98-107) 02/15/17 07:00 Carbon Dioxide 30 mmol/L (21-32) 02/15/17 07:00 Anion Gap 7 (8-16) L 02/15/17 07:00 BUN 7 mg/dL (7-18) 02/15/17 07:00 Creatinine 0.6 mg/dL (0.55-1.02) 02/15/17 07:00 Random Glucose 127 mg/dL (74-106) H 02/15/17 07:00 Calcium 8.4 mg/dL (8.5-10.1) L 02/15/17 07:00 - ASSESSMENT/PLAN Problem List - Problems (1) 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 chronic peripheral venous hypertension Assessment/Plan: 1. Make NPO after midnight except po meds 2. GI/DVT PPX 3. Medical optimization / clearance 4. Coags 5. Type and screen Code(s): I87.332 - CHRONIC VENOUS HTN W ULCER AND INFLAMMATION OF L LOW EXTREM Visit type - Case Type Case Type: ED Admission - New patient This patient is new to me today: Yes Date on this admission: 02/17/17
[2017-02-17 14:15] LABS: INR 1.17 (0.82-1.09); PROTHROMBIN TIME (PATIENT) 13.2 SEC (9.98-11.88)
--- NOTE | 2017-02-17 14:49 | PN ---
Progress Note, Physician Chief Complaint: AWAKE ALERT NAD - Current Medication List Current Medications: Active Medications Acetaminophen (Tylenol -) 650 mg PO Q6H PRN PRN Reason: FEVER OR PAIN Last Admin: 02/17/17 02:54 Dose: 650 mg Amino Acids (Prosource No Carb Liquid Pkt) 30 ml PO BID@0800,1730 [facility] Last Admin: 02/17/17 10:39 Dose: Not Given Collagenase (Santyl -) 1 applic TP DAILY [facility] Last Admin: 02/17/17 11:37 Dose: 1 applic Doxycycline Hyclate (Vibramycin -) 100 mg PO BID@1000,1800 [facility] Last Admin: 02/17/17 10:37 Dose: 100 mg Ferrous Sulfate (Feosol -) 325 mg PO BID [facility] Heparin Sodium (Porcine) (Heparin -) 5,000 unit SQ BID [facility] Last Admin: 02/16/17 22:05 Dose: 5,000 unit Ampicillin Sodium/Sulbactam (Sodium 3 gm/ Sodium Chloride) 100 mls @ 200 mls/ hr IVPB Q6H-IV [facility] Last Admin: 02/17/17 11:32 Dose: 200 mls/hr Losartan Potassium (Cozaar -) 50 mg PO DAILY [facility] Last Admin: 02/17/17 10:37 Dose: 50 mg Metoprolol Tartrate (Lopressor -) 50 mg PO DAILY [facility] Last Admin: 02/17/17 10:37 Dose: 50 mg - Objective Vital Signs: Vital Signs Temperature 98.3 F 02/17/17 14:00 Pulse Rate 81 02/17/17 14:00 Respiratory Rate 20 02/17/17 14:00 Blood Pressure 155/75 02/17/17 14:00 O2 Sat by Pulse Oximetry (%) 100 02/16/17 21:00 Constitutional: Yes: No Distress Eyes: Yes: WNL HENT: Yes: WNL Neck: Yes: WNL Cardiovascular: Yes: WNL Respiratory: Yes: WNL Gastrointestinal: Yes: WNL Genitourinary: Yes: WNL Musculoskeletal: Yes: WNL Extremities: Yes: Other Edema: No Peripheral Pulses WNL: Yes Integumentary: Yes: Pressure Ulcer, Skin Tear, Venous Stasis Changes Wound/Incision: Yes: Dressing Dry and Intact Neurological: Yes: WNL, Unsteady Gait ...Motor Strength: WNL Psychiatric: Yes: WNL Labs: CBC, BMP 12/03/17 07:00 02/15/17 07:00 INR, PTT INR 1.17 (0.82-1.09) H 02/17/17 13:40 Problem List - Problems (1) Infected wound Code(s): T14.8XXA - OTHER INJURY OF UNSPECIFIED BODY REGION, INITIAL ENCOUNTER; L08.9 - LOCAL INFECTION OF THE SKIN AND SUBCUTANEOUS TISSUE, UNSP (2) 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
--- NOTE | 2017-02-17 15:34 | PN ---
Progress Note, Physician History of Present Illness: Pt afebrile currently, has no new complaints. Pain present in LE b/l. - Current Medication List Current Medications: Active Medications Acetaminophen (Tylenol -) 650 mg PO Q6H PRN PRN Reason: FEVER OR PAIN Last Admin: 02/17/17 02:54 Dose: 650 mg Amino Acids (Prosource No Carb Liquid Pkt) 30 ml PO BID@0800,1730 [facility] Last Admin: 02/17/17 10:39 Dose: Not Given Collagenase (Santyl -) 1 applic TP DAILY [facility] Last Admin: 02/17/17 11:37 Dose: 1 applic Doxycycline Hyclate (Vibramycin -) 100 mg PO BID@1000,1800 [facility] Last Admin: 02/17/17 10:37 Dose: 100 mg Ferrous Sulfate (Feosol -) 325 mg PO BID [facility] Heparin Sodium (Porcine) (Heparin -) 5,000 unit SQ BID [facility] Last Admin: 02/16/17 22:05 Dose: 5,000 unit Ampicillin Sodium/Sulbactam (Sodium 3 gm/ Sodium Chloride) 100 mls @ 200 mls/ hr IVPB Q6H-IV [facility] Last Admin: 02/17/17 11:32 Dose: 200 mls/hr Losartan Potassium (Cozaar -) 50 mg PO DAILY [facility] Last Admin: 02/17/17 10:37 Dose: 50 mg Metoprolol Tartrate (Lopressor -) 50 mg PO DAILY [facility] Last Admin: 02/17/17 10:37 Dose: 50 mg - Objective Vital Signs: Vital Signs Temperature 98.3 F 02/17/17 14:00 Pulse Rate 81 02/17/17 14:00 Respiratory Rate 20 02/17/17 14:00 Blood Pressure 155/75 02/17/17 14:00 O2 Sat by Pulse Oximetry (%) 100 02/16/17 21:00 Constitutional: Yes: No Distress Neck: Yes: Supple Cardiovascular: Yes: Regular Rate and Rhythm Respiratory: Yes: CTA Bilaterally Gastrointestinal: Yes: Normal Bowel Sounds, Soft Integumentary: Yes: Other (b/l LE extensive ulcers, mildly malodorous drainage, necrotic edges) Neurological: Yes: Alert Labs: CBC, BMP 02/15/17 07:00 02/15/17 07:00 INR, PTT INR 1.17 (0.82-1.09) H 02/17/17 13:40 Microbiology 02/14/17 21:38 Blood - Peripheral Venous Blood Culture - Preliminary NO GROWTH OBTAINED AFTER 48 HOURS, INCUBATION TO CONTINUE FOR 3 DAYS. 02/14/17 21:37 Blood - Peripheral Venous Blood Culture - Preliminary NO GROWTH OBTAINED AFTER 48 HOURS, INCUBATION TO CONTINUE FOR 3 DAYS. ESR - 40, CRP- 2.5 Problem List - Problems (1) Infected wound Code(s): T14.8XXA - OTHER INJURY OF UNSPECIFIED BODY REGION, INITIAL ENCOUNTER; L08.9 - LOCAL INFECTION OF THE SKIN AND SUBCUTANEOUS TISSUE, UNSP (2) 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 female with PVD and chronic nonhealing b/l LE ulcers/stasis dermatitis - on empiric antibiotics - wound cultures taken - f/u results - vascular surgery following - scheduled for debridement - continue wound care pt currently stable
[2017-02-17] MEDS: FERROUS SO4 325 MG TABLET (FP) PO SCH ×2 (16:41→22:27)
[2017-02-18] MEDS: AMPICILLIN NA/SULBACTAM NA 3 GM in SODIUM CHLORIDE 100 ML IVPB SCH ×4 (03:34→22:56)
[2017-02-18] MEDS: ACETAMINOPHEN 325 MG TABLET (FP) PO PRN ×3 (05:16→22:56)
[2017-02-18] MEDS: LOSARTAN POTASSIUM 50 MG TABLET (FP) PO SCH (10:04)
[2017-02-18] MEDS: HEPARIN NA (PORCINE) 5,000 UNITS/ML 1ML VIAL SQ SCH ×2 (10:04→22:10)
[2017-02-18] MEDS: METOPROLOL TARTRATE 50 MG TABLET (FP) PO SCH (10:04)
[2017-02-18] MEDS: AMINO ACIDS/PROTEIN HYDROLYS 30 ML LIQUID.PKT PO SCH ×2 (10:05→17:06)
[2017-02-18] MEDS: COLLAGENASE CLOSTRIDIUM HIST. 30 GRAMS TUBE TP SCH (10:05)
[2017-02-18] MEDS: FERROUS SO4 325 MG TABLET (FP) PO SCH ×2 (10:05→22:10)
[2017-02-18] MEDS: DOXYCYCLINE HYCLATE 100 MG CAPSULE PO SCH ×2 (10:05→17:06)
--- NOTE | 2017-02-18 11:03 | PN ---
Progress Note, Physician Chief Complaint: TRANSFERRING TO [facility] FOR SURGICAL DEBRIDEMENT OF LEG ULCERS - Current Medication List Current Medications: Active Medications Acetaminophen (Tylenol -) 650 mg PO Q6H PRN PRN Reason: FEVER OR PAIN Last Admin: 02/18/17 05:16 Dose: 650 mg Amino Acids (Prosource No Carb Liquid Pkt) 30 ml PO BID@0800,1730 [facility] Last Admin: 02/18/17 10:05 Dose: Not Given Collagenase (Santyl -) 1 applic TP DAILY [facility] Last Admin: 02/18/17 10:05 Dose: Not Given Doxycycline Hyclate (Vibramycin -) 100 mg PO BID@1000,1800 [facility] Last Admin: 02/18/17 10:05 Dose: Not Given Ferrous Sulfate (Feosol -) 325 mg PO BID [facility] Last Admin: 02/18/17 10:05 Dose: Not Given Heparin Sodium (Porcine) (Heparin -) 5,000 unit SQ BID [facility] Last Admin: 02/18/17 10:04 Dose: Not Given Ampicillin Sodium/Sulbactam (Sodium 3 gm/ Sodium Chloride) 100 mls @ 200 mls/ hr IVPB Q6H-IV [facility] Last Admin: 02/18/17 03:34 Dose: 200 mls/hr Losartan Potassium (Cozaar -) 50 mg PO DAILY [facility] Last Admin: 02/18/17 10:04 Dose: 50 mg Metoprolol Tartrate (Lopressor -) 50 mg PO DAILY [facility] Last Admin: 02/18/17 10:04 Dose: 50 mg - Objective Vital Signs: Vital Signs Temperature 98.5 F 02/18/17 02:08 Pulse Rate 78 02/18/17 02:08 Respiratory Rate 20 02/18/17 02:08 Blood Pressure 142/75 02/18/17 02:08 O2 Sat by Pulse Oximetry (%) 100 02/17/17 21:00 Constitutional: Yes: Mild Distress Eyes: Yes: WNL HENT: Yes: WNL Neck: Yes: WNL Cardiovascular: Yes: WNL Respiratory: Yes: WNL Gastrointestinal: Yes: WNL Genitourinary: Yes: WNL Musculoskeletal: Yes: Muscle Weakness Extremities: Yes: Other Edema: No Peripheral Pulses WNL: Yes Integumentary: Yes: Pressure Ulcer, Venous Stasis Changes Neurological: Yes: Pre-Existing Deficit ...Motor Strength: LLE, RLE Psychiatric: Yes: Other Labs: CBC, BMP 02/15/17 07:00 02/15/17 07:00 INR, PTT INR 1.17 (0.82-1.09) H 02/17/17 13:40 Problem List - Problems (1) Infected wound Code(s): T14.8XXA - OTHER INJURY OF UNSPECIFIED BODY REGION, INITIAL ENCOUNTER; L08.9 - LOCAL INFECTION OF THE SKIN AND SUBCUTANEOUS TISSUE, UNSP (2) 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 chronic peripheral venous hypertension Code(s): I87.332 - CHRONIC VENOUS HTN W ULCER AND INFLAMMATION OF L LOW EXTREM Assessment/Plan CT ANGIO PER VASC SX REVIEWED NORMAL PREDNISONE AND BENADRYL FOR IODINE ALLERGY SURGICAL DEBRIDEMENT TODAY POST OP LABS IV ABX PER ID
--- NOTE | 2017-02-18 12:33 | PN ---
Progress Note, Physician History of Present Illness: Pt is ambulating, with less pain. Has no new complaints. Denies fever/chills, abd discomfort. - Current Medication List Current Medications: Active Medications Acetaminophen (Tylenol -) 650 mg PO Q6H PRN PRN Reason: FEVER OR PAIN Last Admin: 02/18/17 05:16 Dose: 650 mg Amino Acids (Prosource No Carb Liquid Pkt) 30 ml PO BID@0800,1730 [facility] Last Admin: 02/18/17 10:05 Dose: Not Given Collagenase (Santyl -) 1 applic TP DAILY [facility] Last Admin: 02/18/17 10:05 Dose: Not Given Doxycycline Hyclate (Vibramycin -) 100 mg PO BID@1000,1800 [facility] Last Admin: 02/18/17 10:05 Dose: Not Given Ferrous Sulfate (Feosol -) 325 mg PO BID [facility] Last Admin: 02/18/17 10:05 Dose: Not Given Heparin Sodium (Porcine) (Heparin -) 5,000 unit SQ BID [facility] Last Admin: 02/18/17 10:04 Dose: Not Given Ampicillin Sodium/Sulbactam (Sodium 3 gm/ Sodium Chloride) 100 mls @ 200 mls/ hr IVPB Q6H-IV [facility] Last Admin: 02/18/17 10:00 Dose: 200 mls/hr Losartan Potassium (Cozaar -) 50 mg PO DAILY [facility] Last Admin: 02/18/17 10:04 Dose: 50 mg Metoprolol Tartrate (Lopressor -) 50 mg PO DAILY [facility] Last Admin: 02/18/17 10:04 Dose: 50 mg - Objective Vital Signs: Vital Signs Temperature 98.5 F 02/18/17 02:08 Pulse Rate 78 02/18/17 02:08 Respiratory Rate 20 02/18/17 02:08 Blood Pressure 142/75 02/18/17 02:08 O2 Sat by Pulse Oximetry (%) 100 02/17/17 21:00 Constitutional: Yes: No Distress, Calm Neck: Yes: Supple Cardiovascular: Yes: Regular Rate and Rhythm Respiratory: Yes: CTA Bilaterally Gastrointestinal: Yes: Normal Bowel Sounds, Soft Edema: No Integumentary: Yes: Venous Stasis Changes (necrotic tissue, mild drainage) Neurological: Yes: Alert Labs: CBC, BMP 02/15/17 07:00 02/15/17 07:00 INR, PTT INR 1.17 (0.82-1.09) H 02/17/17 13:40 Problem List - Problems (1) Infected wound Code(s): T14.8XXA - OTHER INJURY OF UNSPECIFIED BODY REGION, INITIAL ENCOUNTER; L08.9 - LOCAL INFECTION OF THE SKIN AND SUBCUTANEOUS TISSUE, UNSP (2) 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 chronic peripheral venous hypertension Code(s): I87.332 - CHRONIC VENOUS HTN W ULCER AND INFLAMMATION OF L LOW EXTREM Assessment/Plan Infected B/L LE nonhealing ulcers with infection/venous stasis dermatitis remains stable at this time cont empiric antibiotics awaiting debridement in OR
--- NOTE | 2017-02-18 14:05 | PN ---
Progress Note (short form) - Note Progress Note: [facility] Pt rebooked for mike for bl leg debridement. NPO past midnight. Evelio Kevin DO
[2017-02-18] MEDS ORDERED: amLODIPine BESYLATE 5 MG TABLET (FP) PO ONE (22:45)
[2017-02-19] MEDS: AMPICILLIN NA/SULBACTAM NA 3 GM in SODIUM CHLORIDE 100 ML IVPB SCH ×2 (02:14→10:25)
[2017-02-19] MEDS: AMINO ACIDS/PROTEIN HYDROLYS 30 ML LIQUID.PKT PO SCH ×2 (07:26→17:14)
[2017-02-19 08:03] LABS: MCH 25.5 pg (25.7-33.7); MCHC 31.9 g/dl (32.0-36.0); MEAN PLT VOLUME 6.6 fl (7.5-11.1); PLATELET COUNT 426 K/MM3 (134-434); RDW 14.9 % (11.6-15.6); WHITE BLOOD COUNT 10.3 K/mm3 (4.0-10.0)
[2017-02-19 08:07] LABS: ALBUMIN 2.5 g/dl (3.4-5.0); ANION GAP 6 (8-16); CALCIUM 8.4 mg/dL (8.5-10.1); CO2 30 mmol/L (21-32); GLUCOSE,RANDOM 97 mg/dL (74-106)
[2017-02-19 08:10] LABS: ALK PHOS 80 U/L (45-117); BILIRUBIN,TOTAL 0.3 mg/dL (0.2-1.0); CREATININE 0.5 mg/dL (0.55-1.02); SGOT/AST 14 U/L (15-37); SGPT/ALT 18 U/L (12-78); TOT PROT 7.2 g/dl (6.4-8.2)
[2017-02-19] MEDS: LOSARTAN POTASSIUM 50 MG TABLET (FP) PO SCH ×2 (08:35→10:20)
[2017-02-19] MEDS: METOPROLOL TARTRATE 50 MG TABLET (FP) PO SCH ×2 (08:35→10:21)
[2017-02-19] MEDS: ACETAMINOPHEN 325 MG TABLET (FP) PO PRN ×2 (08:35→18:48)
--- NOTE | 2017-02-19 10:18 | PN ---
Progress Note, Physician Chief Complaint: AWAKE ALERT POD #1 ULCER DEBRIDEMENT OF B/L LEGS - Current Medication List Current Medications: Active Medications Acetaminophen (Tylenol -) 650 mg PO Q6H PRN PRN Reason: FEVER OR PAIN Last Admin: 02/19/17 08:35 Dose: 650 mg Amino Acids (Prosource No Carb Liquid Pkt) 30 ml PO BID@0800,1730 [facility] Last Admin: 02/19/17 07:26 Dose: Not Given Collagenase (Santyl -) 1 applic TP DAILY [facility] Last Admin: 02/18/17 10:05 Dose: Not Given Doxycycline Hyclate (Vibramycin -) 100 mg PO BID@1000,1800 [facility] Last Admin: 02/18/17 17:06 Dose: 100 mg Ferrous Sulfate (Feosol -) 325 mg PO BID [facility] Last Admin: 02/18/17 22:10 Dose: 325 mg Heparin Sodium (Porcine) (Heparin -) 5,000 unit SQ BID [facility] Last Admin: 02/18/17 22:10 Dose: 5,000 unit Ampicillin Sodium/Sulbactam (Sodium 3 gm/ Sodium Chloride) 100 mls @ 200 mls/ hr IVPB Q6H-IV [facility] Last Admin: 02/19/17 02:14 Dose: 200 mls/hr Losartan Potassium (Cozaar -) 50 mg PO DAILY [facility] Last Admin: 02/19/17 08:35 Dose: 50 mg Metoprolol Tartrate (Lopressor -) 50 mg PO DAILY [facility] Last Admin: 02/19/17 08:35 Dose: 50 mg - Objective Vital Signs: Vital Signs Temperature 98.9 F 02/19/17 06:42 Pulse Rate 84 02/19/17 06:42 Respiratory Rate 20 02/19/17 06:42 Blood Pressure 162/72 02/19/17 06:42 O2 Sat by Pulse Oximetry (%) 98 02/18/17 21:00 Constitutional: Yes: No Distress Eyes: Yes: WNL HENT: Yes: WNL Neck: Yes: WNL Cardiovascular: Yes: WNL Respiratory: Yes: WNL Gastrointestinal: Yes: WNL Genitourinary: Yes: WNL Musculoskeletal: Yes: Muscle Weakness Extremities: Yes: Other Edema: No Peripheral Pulses WNL: Yes Integumentary: Yes: Erythema Wound/Incision: Yes: Dressing Dry and Intact Neurological: Yes: Weakness ...Motor Strength: LLE, RLE Psychiatric: Yes: Other Labs: CBC, BMP 02/19/17 06:00 02/19/17 06:00 INR, PTT INR 1.17 (0.82-1.09) H 02/17/17 13:40 Problem List - Problems (1) Infected wound Code(s): T14.8XXA - OTHER INJURY OF UNSPECIFIED BODY REGION, INITIAL ENCOUNTER; L08.9 - LOCAL INFECTION OF THE SKIN AND SUBCUTANEOUS TISSUE, UNSP (2) 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 chronic peripheral venous hypertension Code(s): I87.332 - CHRONIC VENOUS HTN W ULCER AND INFLAMMATION OF L LOW EXTREM Assessment/Plan POD # 1 IV ABX SURGERY F/U LEG B/L ULCER DEBRIDEMENT BP IMPROVING
[2017-02-19] MEDS: HEPARIN NA (PORCINE) 5,000 UNITS/ML 1ML VIAL SQ SCH ×2 (10:20→21:23)
[2017-02-19] MEDS: FERROUS SO4 325 MG TABLET (FP) PO SCH ×2 (10:20→21:22)
[2017-02-19] MEDS: DOXYCYCLINE HYCLATE 100 MG CAPSULE PO SCH (10:21)
[2017-02-19] MEDS ORDERED: PT OWN MED DRAWER 7, Y5N ONE (10:22)
--- NOTE | 2017-02-19 12:47 | PN ---
Progress Note, Physician History of Present Illness: Pt remains afebrile. Has pain only when touch areas of her LE ulcers. No new complaints. Awaiting debridement. - Current Medication List Current Medications: Active Medications Acetaminophen (Tylenol -) 650 mg PO Q6H PRN PRN Reason: FEVER OR PAIN Last Admin: 02/19/17 08:35 Dose: 650 mg Amino Acids (Prosource No Carb Liquid Pkt) 30 ml PO BID@0800,1730 [facility] Last Admin: 02/19/17 07:26 Dose: Not Given Collagenase (Santyl -) 1 applic TP DAILY [facility] Last Admin: 02/18/17 10:05 Dose: Not Given Doxycycline Hyclate (Vibramycin -) 100 mg PO BID@1000,1800 [facility] Last Admin: 02/19/17 10:21 Dose: Not Given Ferrous Sulfate (Feosol -) 325 mg PO BID [facility] Last Admin: 02/19/17 10:20 Dose: Not Given Heparin Sodium (Porcine) (Heparin -) 5,000 unit SQ BID [facility] Last Admin: 02/19/17 10:20 Dose: Not Given Ampicillin Sodium/Sulbactam (Sodium 3 gm/ Sodium Chloride) 100 mls @ 200 mls/ hr IVPB Q6H-IV [facility] Last Admin: 02/19/17 10:25 Dose: 200 mls/hr Losartan Potassium (Cozaar -) 50 mg PO DAILY [facility] Last Admin: 02/19/17 10:20 Dose: Not Given Metoprolol Tartrate (Lopressor -) 50 mg PO DAILY [facility] Last Admin: 02/19/17 10:21 Dose: Not Given - Objective Vital Signs: Vital Signs Temperature 98.9 F 02/19/17 06:42 Pulse Rate 84 02/19/17 06:42 Respiratory Rate 20 02/19/17 06:42 Blood Pressure 162/72 02/19/17 06:42 O2 Sat by Pulse Oximetry (%) 98 02/18/17 21:00 Constitutional: Yes: No Distress, Calm Neck: Yes: Supple Cardiovascular: Yes: Regular Rate and Rhythm Respiratory: Yes: CTA Bilaterally Gastrointestinal: Yes: Normal Bowel Sounds, Soft Wound/Incision: Yes: Dressing Dry and Intact Neurological: Yes: Alert, Oriented Labs: CBC, BMP 02/19/17 06:00 02/19/17 06:00 INR, PTT INR 1.17 (0.82-1.09) H 12/05/17 13:40 Microbiology 02/16/17 06:00 Leg - Left Lower Wound Culture - Preliminary Mr S Aureus Pseudomonas Aeruginosa Klebsiella Oxytoca [employer] Species Pseudomonas Aeruginosa#2 Enterobacter Cloacae 02/14/17 21:38 Blood - Peripheral Venous Blood Culture - Preliminary NO GROWTH OBTAINED AFTER 96 HOURS, INCUBATION TO CONTINUE FOR 1 DAYS. 02/14/17 21:37 Blood - Peripheral Venous Blood Culture - Preliminary NO GROWTH OBTAINED AFTER 96 HOURS, INCUBATION TO CONTINUE FOR 1 DAYS. 02/16/17 06:00 Leg - Right Lower Wound Culture - Preliminary Presumptive Mrsa (Pbp2a Pos) Presumptive Ps Aeruginosa Gram Negative Skyler Gram Negative Skyler#2 Problem List - Problems (1) Infected wound Code(s): T14.8XXA - OTHER INJURY OF UNSPECIFIED BODY REGION, INITIAL ENCOUNTER; L08.9 - LOCAL INFECTION OF THE SKIN AND SUBCUTANEOUS TISSUE, UNSP (2) 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 chronic peripheral venous hypertension Code(s): I87.332 - CHRONIC VENOUS HTN W ULCER AND INFLAMMATION OF L LOW EXTREM Assessment/Plan Infected B/L LE nonhealing ulcers with infection/venous stasis dermatitis - polymicrobial infection (MRSA, Pseudomonas, other gram neg organisms) - d/c Unasyn, doxycycline - will start Zosyn IV and Vancomycin IV until susceptibilities available -awaiting debridement in OR - continue wound care
[2017-02-19] MEDS: COLLAGENASE CLOSTRIDIUM HIST. 30 GRAMS TUBE TP SCH (13:45)
[2017-02-19] MEDS ORDERED: VANCOMYCIN 1,000 MG in DEXTROSE 5%-WATER - 250 ML IVPB SCH (14:00)
[2017-02-19] MEDS ORDERED: BUPIVACAINE HCL/PF 0.5% (5MG/ML) 10 ML VIAL ONE (14:05)
[2017-02-19] MEDS ORDERED: LIDOCAINE HCL 1%, 10 MG/ML (20ML VIAL) ONE (14:05)
[2017-02-19] MEDS ORDERED: MIDAZOLAM HCL 2 MG/2 ML SINGLE DOSE VIAL ONE (14:23)
[2017-02-19] MEDS ORDERED: LIDOCAINE HCL/PF 2% SDV 5ML VIAL ONE (14:23)
[2017-02-19] MEDS: PIPERACILLIN/TAZOB 3.375 GM 50 ML IVPB SCH ×4 (14:39→21:13)
[2017-02-19] MEDS ORDERED: DEXAMETHASONE SOD PHOSPHATE 4 MG/1 ML VIAL ONE (14:51)
[2017-02-19] MEDS ORDERED: HYDROmorphone HCL CARPU-JECT 1 MG/1 ML DISP.SYRIN IVPUSH PRN ×2 (15:11→16:14)
[2017-02-19] MEDS ORDERED: ONDANSETRON 4 MG/2 ML VIAL IVPUSH PRN ×2 (15:11→16:14)
[2017-02-19] MEDS ORDERED: LIDOCAINE HCL 1%, 10 MG/ML (50 mL VIAL) IJ ONE (15:13)
[2017-02-19] MEDS ORDERED: LACTATED RINGERS SOLUTION 1,000 ML IV SCH (15:15)
[2017-02-19] MEDS ORDERED: BUPIVACAINE HCL/PF 0.5% (5MG/ML) 10 ML VIAL IJ ONE (15:30)
--- NOTE | 2017-02-19 15:51 | OP ---
Operative Note - Note: Operative Date: 02/19/17 Pre-Operative Diagnosis: bl lower ext necrotic venous stasis ulcers. Operation: Excisional debridement bl lower extremity venous stasis ulcers -- skin, subcutaneous tissue. Findings: necrotic tissue removed and sent off to path Post-Operative Diagnosis: Same as Pre-op Surgeon: Evelio Kevin Anesthesia: General Estimated Blood Loss (mls): 25 Operative Report Dictated: Yes
[2017-02-19] MEDS ORDERED: predniSONE 20 MG TABLET (UD) PO ONE (16:14)
[2017-02-19] MEDS: LACTATED RINGERS SOLUTION 1,000 ML IV SCH (17:02)
[2017-02-19] MEDS: VANCOMYCIN 1,000 MG in DEXTROSE 5%-WATER - 250 ML IVPB SCH (17:21)
[2017-02-20] MEDS: ACETAMINOPHEN 325 MG TABLET (FP) PO PRN ×2 (00:20→22:51)
[2017-02-20] MEDS: VANCOMYCIN 1,000 MG in DEXTROSE 5%-WATER - 250 ML IVPB SCH ×2 (01:18→15:00)
[2017-02-20] MEDS: PIPERACILLIN/TAZOB 3.375 GM 50 ML IVPB SCH ×4 (02:49→21:58)
--- NOTE | 2017-02-20 09:10 | PN ---
Progress Note, Physician Chief Complaint: ASLEEP NAD NO EVENTS OVERNIGHT - Current Medication List Current Medications: Active Medications Acetaminophen (Tylenol -) 650 mg PO Q6H PRN PRN Reason: FEVER OR PAIN Last Admin: 02/20/17 00:20 Dose: 650 mg Amino Acids (Prosource No Carb Liquid Pkt) 30 ml PO BID@0800,1730 [facility] Last Admin: 02/19/17 17:14 Dose: Not Given Collagenase (Santyl -) 1 applic TP DAILY [facility] Ferrous Sulfate (Feosol -) 325 mg PO BID [facility] Last Admin: 02/19/17 21:22 Dose: 325 mg Heparin Sodium (Porcine) (Heparin -) 5,000 unit SQ BID [facility] Last Admin: 02/19/17 21:23 Dose: 5,000 unit Lactated Ringer's (Lactated Ringers Solution) 1,000 mls @ 125 mls/hr IV ASDIR [facility] Last Admin: 02/19/17 17:02 Dose: 0 mls Vancomycin HCl 1,000 mg/ (Dextrose) 250 mls @ 166.667 mls/hr IVPB BID@0200, 1400 [facility] PRN Reason: Protocol Last Admin: 02/20/17 01:18 Dose: 166.667 mls/hr Piperacillin/Tazobactam/Dextrose (Zosyn 3.375gm Ivpb (Premix)) 50 mls @ 100 mls /hr IVPB Q6H-IV [facility] PRN Reason: Protocol Last Admin: 02/20/17 02:49 Dose: 100 mls/hr Losartan Potassium (Cozaar -) 50 mg PO DAILY [facility] Metoprolol Tartrate (Lopressor -) 50 mg PO DAILY [facility] Ondansetron HCl (Zofran Injection) 4 mg IVPUSH Q6H PRN PRN Reason: NAUSEA AND/OR VOMITING Stop: 02/20/17 12:00 - Objective Vital Signs: Vital Signs Temperature 98.2 F 02/19/17 18:00 Pulse Rate 72 02/19/17 18:00 Respiratory Rate 18 02/19/17 18:00 Blood Pressure 154/67 02/19/17 18:00 O2 Sat by Pulse Oximetry (%) 100 02/19/17 21:00 Constitutional: Yes: No Distress Eyes: Yes: WNL HENT: Yes: WNL Neck: Yes: WNL Cardiovascular: Yes: WNL Respiratory: Yes: WNL Gastrointestinal: Yes: WNL Genitourinary: Yes: WNL Musculoskeletal: Yes: WNL Extremities: Yes: Other Edema: No Peripheral Pulses WNL: Yes Integumentary: Yes: Pressure Ulcer, Venous Stasis Changes Wound/Incision: Yes: Dressing Dry and Intact Neurological: Yes: Other ...Motor Strength: LLE, RLE Psychiatric: Yes: WNL Labs: CBC, BMP 02/19/17 06:00 02/19/17 06:00 INR, PTT INR 1.17 (0.82-1.09) H 02/17/17 13:40 Problem List - Problems (1) Infected wound Code(s): T14.8XXA - OTHER INJURY OF UNSPECIFIED BODY REGION, INITIAL ENCOUNTER; L08.9 - LOCAL INFECTION OF THE SKIN AND SUBCUTANEOUS TISSUE, UNSP (2) 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 chronic peripheral venous hypertension Code(s): I87.332 - CHRONIC VENOUS HTN W ULCER AND INFLAMMATION OF L LOW EXTREM Assessment/Plan SURGICAL DEBRIDEMENT OF LEGS B/L ULCERS IV ABX AWAIT CULTURES ID AND VASC SX F/U APPRECIATED DVT PROPHYLAXIS
[2017-02-20] MEDS ORDERED: PT OWN MED DRAWER 7, Y5N ONE ×3 (09:30→23:59)
[2017-02-20] MEDS: METOPROLOL TARTRATE 50 MG TABLET (FP) PO SCH (09:46)
[2017-02-20] MEDS: HEPARIN NA (PORCINE) 5,000 UNITS/ML 1ML VIAL SQ SCH ×2 (09:46→21:59)
[2017-02-20] MEDS: LOSARTAN POTASSIUM 50 MG TABLET (FP) PO SCH (09:46)
[2017-02-20] MEDS: FERROUS SO4 325 MG TABLET (FP) PO SCH ×2 (09:46→21:58)
[2017-02-20] MEDS: AMINO ACIDS/PROTEIN HYDROLYS 30 ML LIQUID.PKT PO SCH ×2 (09:47→17:04)
[2017-02-20] MEDS ORDERED: COLLAGENASE CLOSTRIDIUM HIST. 30 GRAMS TUBE TP SCH (10:00)
--- NOTE | 2017-02-20 11:04 | PN ---
Progress Note (short form) - Note Progress Note: Patient seen and examined at bedside. No events or problems overnight. Patient feels better today and she denies pain, fevers, chills. Vital Signs Vital Signs Period Temp Pulse Resp BP Sys/Salazar Pulse Ox Last 24 Hr 97.6 F-98.8 F 60-81 14-20 153-171/61-88 100-100 PE: No acute distress, patient is lying in bed and is alert, and oriented. Heart: Regular rate and rhythm Abdomen: nondistended, nontender Lower extremities: Dressings in place. Overall dressing is clean, dry and intact with minimal serosanguinous drainage. Labs Reviewed 71F with multiple medical problems and chronic venous stasis ulcers s/p venous ablation presents to the ED from wound care clinic for worsening pain and drainage of bilateral lower extremities especially the left legPatient is now post-op day one. S/P bl LE debridement of venous stasis ulcers. Problem List: HTN PVD-Venous Infected-chronic venous stasis ulcer Plan: ID consult appreciated continue ABx-Vanco and Zosyn Vanco trough tomorrow 30min before 2pm dose dressing changes with xeroform, gauze, kerlex and selina wrap Doing well from surgical standpoint Pain Control D/Kennedy collagenase DVT proph continue medical management from primary medical team Surgically doing well Case discussed with attending Dr. Kevin
--- NOTE | 2017-02-20 11:05 | OP ---
DATE OF OPERATION: 02/19/2017 PREOPERATIVE DIAGNOSIS: Bilateral lower extremity necrotic venostasis ulcers. POSTOPERATIVE DIAGNOSIS: Bilateral lower extremity necrotic venostasis ulcers. PROCEDURE: Excisional debridement bilateral venostasis ulcers including skin and subcutaneous tissue. SURGEON: Evelio Blancas DO ANESTHESIA: General. BLOOD LOSS: 30 mL. INDICATIONS: The patient is a 71-year-old female who comes in with necrotic venostasis ulcers in bilateral lower extremities. She is on antibiotics and admitted to the floor. The wounds are very painful to her, and it was decided that she would need excisional debridement in the operating room. The patient was consented for the procedure understanding all risks, benefits, and alternatives. DESCRIPTION OF PROCEDURE: She was then taken to the operating room. Once in the operating room, she was laid on the operating table in supine manner. General anesthesia was administered to the patient. We then went ahead and prepped and draped bilateral lower extremities in a sterile surgical manner. We then went ahead and used a curette on both wounds, and we were able to excise all of the necrotic tissue including the skin and subcutaneous tissue. We were able to get down to good granulation tissue that bleed. Bovie electrocautery was used to control hemostasis. We were able to take down all of the necrotic tissue and venostasis ulcers and then we irrigated copiously. We then went ahead and placed Xeroform to both wounds, 4 x 4s, and Kerlix, and placed Manav bandages for compression. The patient tolerated the procedure well with no complication. The patient was transferred to the PACU in stable condition. EVELIO BLANCAS DO RN MATERNITY/[id number]
[2017-02-20] MEDS ORDERED: morphine SULFATE 4 MG/ML VIAL IVPUSH ONE ×2 (14:00→17:00)
--- NOTE | 2017-02-20 14:53 | PN ---
Progress Note (short form) - Note Progress Note: POD #1 - s/p excisional debridement of bilateral lower extremity ulcers under GA. VSS. NAD. No apparent anesthetic complications noted. Continue current care.
[2017-02-20] MEDS: LACTATED RINGERS SOLUTION 1,000 ML IV SCH (17:01)
--- NOTE | 2017-02-20 18:46 | PN ---
Progress Note, Physician History of Present Illness: Pt states she feels better. Had excisional debridement of Lower leg ulcers POD# 1. Pain controlled. - Current Medication List Current Medications: Active Medications Acetaminophen (Tylenol -) 650 mg PO Q6H PRN PRN Reason: FEVER OR PAIN Last Admin: 02/20/17 00:20 Dose: 650 mg Amino Acids (Prosource No Carb Liquid Pkt) 30 ml PO BID@0800,1730 [facility] Last Admin: 02/20/17 17:04 Dose: 30 ml Ferrous Sulfate (Feosol -) 325 mg PO BID [facility] Last Admin: 02/20/17 09:46 Dose: 325 mg Heparin Sodium (Porcine) (Heparin -) 5,000 unit SQ BID [facility] Last Admin: 02/20/17 09:46 Dose: 5,000 unit Lactated Ringer's (Lactated Ringers Solution) 1,000 mls @ 125 mls/hr IV ASDIR [facility] Last Admin: 02/20/17 17:01 Dose: Not Given Vancomycin HCl 1,000 mg/ (Dextrose) 250 mls @ 166.667 mls/hr IVPB BID@0200, 1400 [facility] PRN Reason: Protocol Last Admin: 02/20/17 15:00 Dose: 166.667 mls/hr Piperacillin/Tazobactam/Dextrose (Zosyn 3.375gm Ivpb (Premix)) 50 mls @ 100 mls /hr IVPB Q6H-IV [facility] PRN Reason: Protocol Last Admin: 02/20/17 15:00 Dose: 100 mls/hr Losartan Potassium (Cozaar -) 50 mg PO DAILY [facility] Last Admin: 02/20/17 09:46 Dose: 50 mg Metoprolol Tartrate (Lopressor -) 50 mg PO DAILY [facility] Last Admin: 02/20/17 09:46 Dose: 50 mg - Objective Vital Signs: Vital Signs Temperature 97.6 F 02/20/17 15:38 Pulse Rate 63 02/20/17 15:38 Respiratory Rate 18 02/20/17 15:38 Blood Pressure 172/80 02/20/17 15:38 O2 Sat by Pulse Oximetry (%) 99 02/20/17 09:00 Constitutional: Yes: No Distress Cardiovascular: Yes: Regular Rate and Rhythm Respiratory: Yes: CTA Bilaterally Gastrointestinal: Yes: Normal Bowel Sounds, Soft Wound/Incision: Yes: Dressing Dry and Intact (b/l LE ulcers) Labs: CBC, BMP 02/19/17 06:00 02/19/17 06:00 INR, PTT INR 1.17 (0.82-1.09) H 02/17/17 13:40 Microbiology 02/14/17 21:38 Blood - Peripheral Venous Blood Culture - Final NO GROWTH AFTER 5 DAYS INCUBATION 02/14/17 21:37 Blood - Peripheral Venous Blood Culture - Final NO GROWTH AFTER 5 DAYS INCUBATION 02/16/17 06:00 Leg - Right Lower Gram Stain - Final 02/16/17 06:00 Leg - Right Lower Wound Culture - Final Mr S Aureus Pseudomonas Aeruginosa Klebsiella Oxytoca Pseudomonas Aeruginosa#2 02/16/17 06:00 Leg - Left Lower Gram Stain - Final 02/16/17 06:00 Leg - Left Lower Wound Culture - Final Mr S Aureus Pseudomonas Aeruginosa Klebsiella Oxytoca [place] Species Pseudomonas Aeruginosa#2 Enterobacter Cloacae Problem List - Problems (1) Infected wound Code(s): T14.8XXA - OTHER INJURY OF UNSPECIFIED BODY REGION, INITIAL ENCOUNTER; L08.9 - LOCAL INFECTION OF THE SKIN AND SUBCUTANEOUS TISSUE, UNSP (2) 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 chronic peripheral venous hypertension Code(s): I87.332 - CHRONIC VENOUS HTN W ULCER AND INFLAMMATION OF L LOW EXTREM Assessment/Plan Infected B/L LE venous stasis ulcers - polymicrobial infection, s/p debridement - continue Zosyn/Vancomycin IV for now, Vancomycin level ordered - f/u culture sensitivities - continue wound care
[2017-02-21] MEDS: VANCOMYCIN 1,000 MG in DEXTROSE 5%-WATER - 250 ML IVPB SCH ×2 (01:07→16:08)
[2017-02-21] MEDS: PIPERACILLIN/TAZOB 3.375 GM 50 ML IVPB SCH ×4 (03:03→21:41)
[2017-02-21] MEDS: ACETAMINOPHEN 325 MG TABLET (FP) PO PRN ×2 (06:03→15:24)
[2017-02-21 07:12] LABS: MCH 26.1 pg (25.7-33.7); MCHC 32.8 g/dl (32.0-36.0); MEAN CELL VOLUME 79.6 fl (80-96); MEAN PLT VOLUME 6.4 fl (7.5-11.1); PLATELET COUNT 376 K/MM3 (134-434); RDW 14.9 % (11.6-15.6); WHITE BLOOD COUNT 9.8 K/mm3 (4.0-10.0)
[2017-02-21 07:40] LABS: ANION GAP 7 (8-16); CALCIUM 8.7 mg/dL (8.5-10.1); CO2 31 mmol/L (21-32); CREATININE 0.7 mg/dL (0.55-1.02); GLUCOSE,RANDOM 81 mg/dL (74-106)
[2017-02-21] MEDS ORDERED: PT OWN MED DRAWER 7, Y5N ONE ×2 (08:32→15:18)
--- NOTE | 2017-02-21 08:57 | PN ---
Progress Note, Physician History of Present Illness: LEG PAINS - Current Medication List Current Medications: Active Medications Acetaminophen (Tylenol -) 650 mg PO Q6H PRN PRN Reason: FEVER OR PAIN Last Admin: 02/21/17 06:03 Dose: 650 mg Amino Acids (Prosource No Carb Liquid Pkt) 30 ml PO BID@0800,1730 [facility] Last Admin: 02/20/17 17:04 Dose: 30 ml Ferrous Sulfate (Feosol -) 325 mg PO BID [facility] Last Admin: 02/20/17 21:58 Dose: 325 mg Heparin Sodium (Porcine) (Heparin -) 5,000 unit SQ BID [facility] Last Admin: 02/20/17 21:59 Dose: 5,000 unit Lactated Ringer's (Lactated Ringers Solution) 1,000 mls @ 125 mls/hr IV ASDIR [facility] Last Admin: 02/20/17 17:01 Dose: Not Given Vancomycin HCl 1,000 mg/ (Dextrose) 250 mls @ 166.667 mls/hr IVPB BID@0200, 1400 [facility] PRN Reason: Protocol Last Admin: 02/21/17 01:07 Dose: 166.667 mls/hr Piperacillin/Tazobactam/Dextrose (Zosyn 3.375gm Ivpb (Premix)) 50 mls @ 100 mls /hr IVPB Q6H-IV [facility] PRN Reason: Protocol Last Admin: 02/21/17 03:03 Dose: 100 mls/hr Losartan Potassium (Cozaar -) 50 mg PO DAILY [facility] Last Admin: 02/20/17 09:46 Dose: 50 mg Metoprolol Tartrate (Lopressor -) 50 mg PO DAILY [facility] Last Admin: 02/20/17 09:46 Dose: 50 mg - Objective Vital Signs: Vital Signs Temperature 98.0 F 02/21/17 06:00 Pulse Rate 68 02/21/17 06:00 Respiratory Rate 18 02/21/17 06:00 Blood Pressure 147/68 02/21/17 06:00 O2 Sat by Pulse Oximetry (%) 98 02/20/17 21:00 Cardiovascular: Yes: S1, S2 Respiratory: Yes: Regular, CTA Bilaterally Gastrointestinal: Yes: Normal Bowel Sounds, Soft Wound/Incision: Yes: Dressing Dry and Intact Labs: CBC, BMP 02/21/17 06:30 02/21/17 06:30 INR, PTT INR 1.17 (0.82-1.09) H 02/17/17 13:40 Problem List - Problems (1) Infected wound Assessment/Plan: IV ABX PER ID Code(s): T14.8XXA - OTHER INJURY OF UNSPECIFIED BODY REGION, INITIAL ENCOUNTER; L08.9 - LOCAL INFECTION OF THE SKIN AND SUBCUTANEOUS TISSUE, UNSP (2) 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 chronic peripheral venous hypertension Assessment/Plan: LOCAL CARE Code(s): I87.332 - CHRONIC VENOUS HTN W ULCER AND INFLAMMATION OF L LOW EXTREM (3) PVD (peripheral vascular disease) Assessment/Plan: PER VASCULAR Code(s): I73.9 - PERIPHERAL VASCULAR DISEASE, UNSPECIFIED (4) HTN (hypertension) Assessment/Plan: Vital Signs Period Temp Pulse Resp BP Sys/Salazar Pulse Ox Last 24 Hr 97.6 F-98.0 F 63-72 16-18 147-172/68-80 98 Code(s): I10 - ESSENTIAL (PRIMARY) HYPERTENSION
[2017-02-21] MEDS: AMINO ACIDS/PROTEIN HYDROLYS 30 ML LIQUID.PKT PO SCH ×2 (09:27→17:34)
[2017-02-21] MEDS: FERROUS SO4 325 MG TABLET (FP) PO SCH ×2 (10:08→21:41)
[2017-02-21] MEDS: METOPROLOL TARTRATE 50 MG TABLET (FP) PO SCH (10:08)
[2017-02-21] MEDS: HEPARIN NA (PORCINE) 5,000 UNITS/ML 1ML VIAL SQ SCH ×2 (10:08→21:41)
[2017-02-21] MEDS: LOSARTAN POTASSIUM 50 MG TABLET (FP) PO SCH (10:08)
--- NOTE | 2017-02-21 16:34 | PN ---
Progress Note, Physician History of Present Illness: Pt remains alert, afebrile. Pain controlled. No new complaints. - Current Medication List Current Medications: Active Medications Acetaminophen (Tylenol -) 650 mg PO Q6H PRN PRN Reason: FEVER OR PAIN Last Admin: 02/21/17 15:24 Dose: 650 mg Amino Acids (Prosource No Carb Liquid Pkt) 30 ml PO BID@0800,1730 [facility] Last Admin: 02/21/17 09:27 Dose: 30 ml Ferrous Sulfate (Feosol -) 325 mg PO BID [facility] Last Admin: 02/21/17 10:08 Dose: 325 mg Heparin Sodium (Porcine) (Heparin -) 5,000 unit SQ BID [facility] Last Admin: 02/21/17 10:08 Dose: 5,000 unit Lactated Ringer's (Lactated Ringers Solution) 1,000 mls @ 125 mls/hr IV ASDIR [facility] Last Admin: 02/20/17 17:01 Dose: Not Given Vancomycin HCl 1,000 mg/ (Dextrose) 250 mls @ 166.667 mls/hr IVPB BID@0200, 1400 [facility] PRN Reason: Protocol Last Admin: 02/21/17 16:08 Dose: 166.667 mls/hr Piperacillin/Tazobactam/Dextrose (Zosyn 3.375gm Ivpb (Premix)) 50 mls @ 100 mls /hr IVPB Q6H-IV [facility] PRN Reason: Protocol Last Admin: 02/21/17 15:25 Dose: 100 mls/hr Losartan Potassium (Cozaar -) 50 mg PO DAILY [facility] Last Admin: 02/21/17 10:08 Dose: 50 mg Metoprolol Tartrate (Lopressor -) 50 mg PO DAILY [facility] Last Admin: 02/21/17 10:08 Dose: 50 mg Morphine Sulfate (Morphine Sulfate) 2 mg IVPUSH Q24H PRN PRN Reason: DRESSING CHANGE - Objective Vital Signs: Vital Signs Temperature 98.6 F 02/21/17 14:50 Pulse Rate 71 02/21/17 14:50 Respiratory Rate 16 02/21/17 14:50 Blood Pressure 126/72 02/21/17 14:50 O2 Sat by Pulse Oximetry (%) 98 02/20/17 21:00 Constitutional: Yes: No Distress, Calm Cardiovascular: Yes: Regular Rate and Rhythm Respiratory: Yes: CTA Bilaterally Wound/Incision: Yes: Dressing Dry and Intact Labs: CBC, BMP 02/21/17 06:30 02/21/17 06:30 INR, PTT INR 1.17 (0.82-1.09) H 02/17/17 13:40 Microbiology 02/14/17 21:38 Blood - Peripheral Venous Blood Culture - Final NO GROWTH AFTER 5 DAYS INCUBATION 02/14/17 21:37 Blood - Peripheral Venous Blood Culture - Final NO GROWTH AFTER 5 DAYS INCUBATION 02/16/17 06:00 Leg - Right Lower Gram Stain - Final 02/16/17 06:00 Leg - Right Lower Wound Culture - Final Mr S Aureus Pseudomonas Aeruginosa Klebsiella Oxytoca Pseudomonas Aeruginosa#2 02/16/17 06:00 Leg - Left Lower Gram Stain - Final 02/16/17 06:00 Leg - Left Lower Wound Culture - Final Mr S Aureus Pseudomonas Aeruginosa Klebsiella Oxytoca [place] Species Pseudomonas Aeruginosa#2 Enterobacter Cloacae 02/21/17: vancomycin Trough - 14.9 Problem List - Problems (1) Infected wound Code(s): T14.8XXA - OTHER INJURY OF UNSPECIFIED BODY REGION, INITIAL ENCOUNTER; L08.9 - LOCAL INFECTION OF THE SKIN AND SUBCUTANEOUS TISSUE, UNSP (2) 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 chronic peripheral venous hypertension Code(s): I87.332 - CHRONIC VENOUS HTN W ULCER AND INFLAMMATION OF L LOW EXTREM Assessment/Plan Infected B/L LE venous stasis ulcers - polymicrobial infection, s/p debridement - continue Zosyn/Vancomycin IV - f/u culture sensitivities - still pending - continue wound care, pain control pt currently stable
[2017-02-21] MEDS: morphine SULFATE 4 MG/ML VIAL IVPUSH PRN (17:34)
[2017-02-22] MEDS: ACETAMINOPHEN 325 MG TABLET (FP) PO PRN ×3 (01:59→22:16)
[2017-02-22] MEDS: VANCOMYCIN 1,000 MG in DEXTROSE 5%-WATER - 250 ML IVPB SCH ×2 (01:59→18:09)
[2017-02-22] MEDS: PIPERACILLIN/TAZOB 3.375 GM 50 ML IVPB SCH ×4 (01:59→22:15)
[2017-02-22] MEDS: AMINO ACIDS/PROTEIN HYDROLYS 30 ML LIQUID.PKT PO SCH ×2 (08:44→18:24)
[2017-02-22] MEDS ORDERED: PT OWN MED DRAWER 7, Y5N ONE ×3 (09:09→18:22)
--- NOTE | 2017-02-22 10:00 | PN ---
Progress Note, Physician - Current Medication List Current Medications: Active Medications Acetaminophen (Tylenol -) 650 mg PO Q6H PRN PRN Reason: FEVER OR PAIN Last Admin: 02/22/17 01:59 Dose: 650 mg Amino Acids (Prosource No Carb Liquid Pkt) 30 ml PO BID@0800,1730 [facility] Last Admin: 02/22/17 08:44 Dose: 30 ml Ferrous Sulfate (Feosol -) 325 mg PO BID [facility] Last Admin: 02/21/17 21:41 Dose: 325 mg Heparin Sodium (Porcine) (Heparin -) 5,000 unit SQ BID [facility] Last Admin: 02/21/17 21:41 Dose: 5,000 unit Vancomycin HCl 1,000 mg/ (Dextrose) 250 mls @ 166.667 mls/hr IVPB BID@0200, 1400 [facility] PRN Reason: Protocol Last Admin: 02/22/17 01:59 Dose: 166.667 mls/hr Piperacillin/Tazobactam/Dextrose (Zosyn 3.375gm Ivpb (Premix)) 50 mls @ 100 mls /hr IVPB Q6H-IV [facility] PRN Reason: Protocol Last Admin: 02/22/17 01:59 Dose: 100 mls/hr Losartan Potassium (Cozaar -) 50 mg PO DAILY [facility] Last Admin: 02/21/17 10:08 Dose: 50 mg Metoprolol Tartrate (Lopressor -) 50 mg PO DAILY [facility] Last Admin: 02/21/17 10:08 Dose: 50 mg Morphine Sulfate (Morphine Sulfate) 2 mg IVPUSH Q24H PRN PRN Reason: DRESSING CHANGE Last Admin: 02/21/17 17:34 Dose: 2 mg - Objective Vital Signs: Vital Signs Temperature 98.4 F 02/22/17 06:00 Pulse Rate 70 02/22/17 06:00 Respiratory Rate 20 02/22/17 06:00 Blood Pressure 158/72 02/22/17 06:00 O2 Sat by Pulse Oximetry (%) 97 02/21/17 21:00 Labs: CBC, BMP 02/21/17 06:30 02/21/17 06:30 INR, PTT INR 1.17 (0.82-1.09) H 02/17/17 13:40 Problem List - Problems (1) Infected wound Assessment/Plan: IV ABX PER ID Code(s): T14.8XXA - OTHER INJURY OF UNSPECIFIED BODY REGION, INITIAL ENCOUNTER; L08.9 - LOCAL INFECTION OF THE SKIN AND SUBCUTANEOUS TISSUE, UNSP (2) 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 chronic peripheral venous hypertension Assessment/Plan: LOCAL CARE Code(s): I87.332 - CHRONIC VENOUS HTN W ULCER AND INFLAMMATION OF L LOW EXTREM (3) PVD (peripheral vascular disease) Assessment/Plan: PER VASCULAR Code(s): I73.9 - PERIPHERAL VASCULAR DISEASE, UNSPECIFIED (4) HTN (hypertension) Assessment/Plan: Vital Signs Period Temp Pulse Resp BP Sys/Salazar Pulse Ox Last 24 Hr 97.6 F-98.0 F 63-72 16-18 147-172/68-80 98 Code(s): I10 - ESSENTIAL (PRIMARY) HYPERTENSION
[2017-02-22] MEDS: HEPARIN NA (PORCINE) 5,000 UNITS/ML 1ML VIAL SQ SCH ×2 (10:42→22:16)
[2017-02-22] MEDS: METOPROLOL TARTRATE 50 MG TABLET (FP) PO SCH (10:42)
[2017-02-22] MEDS: LOSARTAN POTASSIUM 50 MG TABLET (FP) PO SCH (10:42)
[2017-02-22] MEDS: FERROUS SO4 325 MG TABLET (FP) PO SCH ×2 (10:42→22:16)
[2017-02-22] MEDS: morphine SULFATE 4 MG/ML VIAL IVPUSH PRN (15:35)
[2017-02-23] MEDS: VANCOMYCIN 1,000 MG in DEXTROSE 5%-WATER - 250 ML IVPB SCH (02:06)
[2017-02-23] MEDS: PIPERACILLIN/TAZOB 3.375 GM 50 ML IVPB SCH ×4 (02:06→21:41)
[2017-02-23] MEDS: HEPARIN NA (PORCINE) 5,000 UNITS/ML 1ML VIAL SQ SCH ×2 (09:28→21:41)
[2017-02-23] MEDS: AMINO ACIDS/PROTEIN HYDROLYS 30 ML LIQUID.PKT PO SCH ×2 (09:29→17:51)
[2017-02-23] MEDS: LOSARTAN POTASSIUM 50 MG TABLET (FP) PO SCH (09:29)
[2017-02-23] MEDS: FERROUS SO4 325 MG TABLET (FP) PO SCH ×2 (09:29→21:41)
[2017-02-23] MEDS: METOPROLOL TARTRATE 50 MG TABLET (FP) PO SCH (09:29)
--- NOTE | 2017-02-23 10:24 | PN ---
Progress Note (short form) - Note Progress Note: Patient seen and examined at bedside. No events or problems overnight. Patient feels well today. Still on IV Abx. RLE wound culture Still pending sensitivities Afebrile Vital Signs Vital Signs Vital Signs Period Temp Pulse Resp BP Sys/Salazar Pulse Ox Last 24 Hr 97.9 F-98.5 F 64-78 16-20 124-144/54-87 97 PE: No acute distress, patient is stillin in chair legs elevated and is alert, and oriented. Heart: Regular rate and rhythm Abdomen: nondistended, nontender Lower extremities: Dressings in place. Overall dressing is clean, dry and intact with no drainage. Wound edges clean with pink granulation tissue . Labs Reviewed 71F with multiple medical problems and chronic venous stasis ulcers s/p venous ablation presents to the ED from wound care clinic for worsening pain and drainage of bilateral lower extremities especially the left legPatient is now post-op day one. S/P bl LE debridement of venous stasis ulcers. Problem List: HTN PVD-Venous Infected-chronic venous stasis ulcer Plan: ID consult appreciated continue ABx-Vanco and Zosyn Vanco trough today 30min before 2pm dose dressing changes with xeroform, gauze, kerlex and selina wrap Doing well from surgical standpoint f/u cultures and sensitivities from RLE wound culture Pain Control DVT proph continue medical management from primary medical team Surgically doing well Case discussed with attending Dr. Kevin
--- NOTE | 2017-02-23 11:35 | PATH ---
Surgical Pathology Report Patient Name: IRVING LERMA Med. Rec. #: [id number] /Age/Gender: 1945 (Age: 71) / F Account: [id number] Location: [facility] MED/SURG Taken: 02/19/2017 Received: 02/20/2017 Reported: 02/23/2017 Physicians: Marquise Kevin M.D. Specimen(s) Received NECROTIC TISSUE BILATERAL SHINS Clinical History Status dermatitis Final Diagnosis SKIN AND SOFT TISSUE, RIGHT AND LEFT LEG, DEBRIDEMENT: GANGRENOUS NECROSIS. Electronically Signed Tanner Sloan M.D. Gross Description Received in formalin labeled "debrided tissue right and left leg," is a 4.8 x 4.0 x 0.3 cm aggregate of ferreira johnson, necrotic skin and soft tissue fragments. A outside sales representative insurance portion is submitted in one cassette. /02/20/201702/20/2017
--- NOTE | 2017-02-23 12:18 | PN ---
Progress Note, Physician History of Present Illness: Pt is alert, afebrile. No new complaints. Feels better over all. Still with pain in LE. States she had 2 unformed BMs today but no abd cramping or diarrhea. - Current Medication List Current Medications: Active Medications Acetaminophen (Tylenol -) 650 mg PO Q6H PRN PRN Reason: FEVER OR PAIN Last Admin: 02/22/17 22:16 Dose: 650 mg Amino Acids (Prosource No Carb Liquid Pkt) 30 ml PO BID@0800,1730 [facility] Last Admin: 02/23/17 09:29 Dose: 30 ml Ferrous Sulfate (Feosol -) 325 mg PO BID [facility] Last Admin: 02/23/17 09:29 Dose: 325 mg Heparin Sodium (Porcine) (Heparin -) 5,000 unit SQ BID [facility] Last Admin: 02/23/17 09:28 Dose: 5,000 unit Vancomycin HCl 1,000 mg/ (Dextrose) 250 mls @ 166.667 mls/hr IVPB BID@0200, 1400 [facility] PRN Reason: Protocol Last Admin: 02/23/17 02:06 Dose: 166.667 mls/hr Piperacillin/Tazobactam/Dextrose (Zosyn 3.375gm Ivpb (Premix)) 50 mls @ 100 mls /hr IVPB Q6H-IV [facility] PRN Reason: Protocol Last Admin: 02/23/17 09:41 Dose: 100 mls/hr Losartan Potassium (Cozaar -) 50 mg PO DAILY [facility] Last Admin: 02/23/17 09:29 Dose: 50 mg Metoprolol Tartrate (Lopressor -) 50 mg PO DAILY [facility] Last Admin: 02/23/17 09:29 Dose: 50 mg Morphine Sulfate (Morphine Sulfate) 2 mg IVPUSH Q24H PRN PRN Reason: DRESSING CHANGE Last Admin: 02/22/17 15:35 Dose: 2 mg - Objective Vital Signs: Vital Signs Temperature 98.3 F 02/23/17 06:00 Pulse Rate 64 02/23/17 06:00 Respiratory Rate 20 02/23/17 06:00 Blood Pressure 144/54 02/23/17 06:00 O2 Sat by Pulse Oximetry (%) 97 02/22/17 21:00 Constitutional: Yes: No Distress, Calm Neck: Yes: Supple Cardiovascular: Yes: Regular Rate and Rhythm Respiratory: Yes: Regular Gastrointestinal: Yes: Normal Bowel Sounds, Soft Genitourinary: Yes: WNL Musculoskeletal: Yes: WNL Integumentary: Yes: Venous Stasis Changes (b/l large LE ulcers) Wound/Incision: Yes: Dressing Dry and Intact Neurological: Yes: Alert, Oriented Labs: CBC, BMP 02/21/17 06:30 02/21/17 06:30 INR, PTT INR 1.17 (0.82-1.09) H 02/17/17 13:40 02/22/17 Vancomycin Trough: 16.9 Microbiology 02/14/17 21:38 Blood - Peripheral Venous Blood Culture - Final NO GROWTH AFTER 5 DAYS INCUBATION 02/14/17 21:37 Blood - Peripheral Venous Blood Culture - Final NO GROWTH AFTER 5 DAYS INCUBATION 02/16/17 06:00 Leg - Right Lower Gram Stain - Final 02/16/17 06:00 Leg - Right Lower Wound Culture - Final S Aureus Pseudomonas Aeruginosa Klebsiella Oxytoca Pseudomonas Aeruginosa#2 02/16/17 06:00 Leg - Left Lower Gram Stain - Final 02/16/17 06:00 Leg - Left Lower Wound Culture - Final S Aureus Pseudomonas Aeruginosa Klebsiella Oxytoca [place] Species Pseudomonas Aeruginosa#2 Enterobacter Cloacae Problem List - Problems (1) Infected wound Code(s): T14.8XXA - OTHER INJURY OF UNSPECIFIED BODY REGION, INITIAL ENCOUNTER; L08.9 - LOCAL INFECTION OF THE SKIN AND SUBCUTANEOUS TISSUE, UNSP (2) 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 chronic peripheral venous hypertension Code(s): I87.332 - CHRONIC VENOUS HTN W ULCER AND INFLAMMATION OF L LOW EXTREM Assessment/Plan Infected B/L LE venous stasis ulcers - polymicrobial infection, s/p debridement. With looser BMs today, no abd pain. - On Zosyn, Vancomycin held. Will check vancomycin level today along with cbc, bmp - based on cultures isolates collectively susceptible to Bactrim and Levaquin - if loose BMs persist will send stool c. diff - continue wound care, pain control pt currently stable
[2017-02-23 13:09] LABS: MCH 25.7 pg (25.7-33.7); MCHC 31.4 g/dl (32.0-36.0); MEAN CELL VOLUME 81.7 fl (80-96); PLATELET COUNT 432 K/MM3 (134-434); RDW 15.5 % (11.6-15.6)
[2017-02-23 13:30] LABS: ANION GAP 7 (8-16); CALCIUM 8.5 mg/dL (8.5-10.1); CO2 29 mmol/L (21-32); CREATININE 0.7 mg/dL (0.55-1.02); GLUCOSE,RANDOM 122 mg/dL (74-106)
[2017-02-23] MEDS ORDERED: oxyCODONE HCL 5 MG TABLET PO PRN (15:12)
--- NOTE | 2017-02-23 15:14 | PN ---
Progress Note, Physician Chief Complaint: AWAKE ALERT NOTES AND EVENTS REVIEWED - Current Medication List Current Medications: Active Medications Acetaminophen (Tylenol -) 650 mg PO Q6H PRN PRN Reason: FEVER OR PAIN Last Admin: 02/22/17 22:16 Dose: 650 mg Amino Acids (Prosource No Carb Liquid Pkt) 30 ml PO BID@0800,1730 [facility] Last Admin: 02/23/17 09:29 Dose: 30 ml Ferrous Sulfate (Feosol -) [address] [facility] Last Admin: 02/23/17 09:29 Dose: 325 mg Heparin Sodium (Porcine) (Heparin -) 5,[address] [facility] Last Admin: 02/23/17 09:28 Dose: 5,000 unit Vancomycin HCl 1,000 mg/ (Dextrose) 250 mls @ 166.667 mls/hr IVPB BID@0200, 1400 [facility] PRN Reason: Protocol Last Admin: 02/23/17 02:06 Dose: 166.667 mls/hr Piperacillin/Tazobactam/Dextrose (Zosyn 3.375gm Ivpb (Premix)) 50 mls @ 100 mls /hr IVPB Q6H-IV PAUL PRN Reason: Protocol Last Admin: 02/23/17 09:41 Dose: 100 mls/hr Losartan Potassium (Cozaar -) [address] [facility] Last Admin: 02/23/17 09:29 Dose: 50 mg Metoprolol Tartrate (Lopressor -) [address] [facility] Last Admin: 02/23/17 09:29 Dose: 50 mg Morphine Sulfate (Morphine Sulfate) 2 mg IVPUSH Q24H PRN PRN Reason: DRESSING CHANGE Last Admin: 02/22/17 15:35 Dose: 2 mg Oxycodone HCl (Roxicodone -) 5 mg PO Q6H PRN PRN Reason: PAIN - Objective Vital Signs: Vital Signs Temperature 99.1 F 02/23/17 10:00 Pulse Rate 88 02/23/17 10:00 Respiratory Rate 20 02/23/17 10:00 Blood Pressure 119/68 02/23/17 10:00 O2 Sat by Pulse Oximetry (%) 97 02/22/17 21:00 Constitutional: Yes: No Distress Eyes: Yes: WNL HENT: Yes: WNL Neck: Yes: WNL Cardiovascular: Yes: WNL Respiratory: Yes: WNL Gastrointestinal: Yes: WNL Genitourinary: Yes: WNL Musculoskeletal: Yes: Muscle Weakness Extremities: Yes: Other Edema: No Peripheral Pulses WNL: Yes Integumentary: Yes: Pressure Ulcer, Venous Stasis Changes Wound/Incision: Yes: Dressing Dry and Intact Neurological: Yes: Other ...Motor Strength: LLE, RLE Psychiatric: Yes: WNL Labs: CBC, BMP 02/23/17 12:40 02/23/17 12:40 INR, PTT INR 1.17 (0.82-1.09) H 02/17/17 13:40 Problem List - Problems (1) Infected wound Code(s): T14.8XXA - OTHER INJURY OF UNSPECIFIED BODY REGION, INITIAL ENCOUNTER; L08.9 - LOCAL INFECTION OF THE SKIN AND SUBCUTANEOUS TISSUE, UNSP (2) 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 chronic peripheral venous hypertension Code(s): I87.332 - CHRONIC VENOUS HTN W ULCER AND INFLAMMATION OF L LOW EXTREM Assessment/Plan D/W ID CHANGE TO LEVAQUIN/BACTRIM DS TOMORROW PO DC [facility]
[2017-02-23] MEDS ORDERED: PT OWN MED DRAWER 7, Y5N ONE (15:56)
[2017-02-23] MEDS: LACTOBACILLUS ACIDOPHILUS 1 EACH TAB (FP) PO SCH (16:00)
[2017-02-23] MEDS: ACETAMINOPHEN 325 MG TABLET (FP) PO PRN (16:00)
[2017-02-23 16:43] LABS: ANISOCYTOSIS 1+; HYPOCHROMIA 0; MACROCYTOSIS 0; METAMYELOCYTE 1 % (0-2); MICROCYTOSIS 0; MYELOCYTE 1 % (0-2); PLATELET ESTIMATE INCREASED; POIKILOCYTOSIS 0; POLYCHROMASIA 0; REACTIVE LYMPHOCYTES 2 % (0-80)
[2017-02-24] MEDS: PIPERACILLIN/TAZOB 3.375 GM 50 ML IVPB SCH (02:22)
[2017-02-24] MEDS ORDERED: LEVOFLOXACIN 500 MG TABLET (FP) PO SCH (08:30)
[2017-02-24] MEDS: AMINO ACIDS/PROTEIN HYDROLYS 30 ML LIQUID.PKT PO SCH ×2 (08:47→17:28)
[2017-02-24] MEDS: METOPROLOL TARTRATE 50 MG TABLET (FP) PO SCH (10:33)
[2017-02-24] MEDS: LACTOBACILLUS ACIDOPHILUS 1 EACH TAB (FP) PO SCH (10:33)
[2017-02-24] MEDS: LOSARTAN POTASSIUM 50 MG TABLET (FP) PO SCH (10:33)
[2017-02-24] MEDS: FERROUS SO4 325 MG TABLET (FP) PO SCH ×2 (10:33→21:21)
[2017-02-24] MEDS: SULFAMETHOXAZOLE/TRIMETHOPRIM 800MG/160MG D.S. TABLET PO SCH ×2 (10:33→21:21)
--- NOTE | 2017-02-24 17:36 | PN ---
Progress Note, Physician History of Present Illness: Pt is doing well. No new complaints. Awaiting d/c. Daughter to pick her up tonight. - Current Medication List Current Medications: Active Medications Acetaminophen (Tylenol -) 650 mg PO Q6H PRN PRN Reason: FEVER OR PAIN Last Admin: 02/23/17 16:00 Dose: 650 mg Amino Acids (Prosource No Carb Liquid Pkt) 30 ml PO BID@0800,1730 [facility] Last Admin: 02/24/17 17:28 Dose: 30 ml Ferrous Sulfate (Feosol -) 325 mg PO BID [facility] Last Admin: 02/24/17 10:33 Dose: 325 mg Lactobacillus Acidophilus (Bacid -) 1 tab PO DAILY [facility] Last Admin: 02/24/17 10:33 Dose: 1 tab Levofloxacin (Levaquin -) 500 mg PO DAILY@0600 [facility] Last Admin: 02/24/17 08:47 Dose: 500 mg Losartan Potassium (Cozaar -) 50 mg PO DAILY [facility] Last Admin: 02/24/17 10:33 Dose: 50 mg Metoprolol Tartrate (Lopressor -) 50 mg PO DAILY [facility] Last Admin: 02/24/17 10:33 Dose: 50 mg Oxycodone HCl (Roxicodone -) 5 mg PO Q6H PRN PRN Reason: PAIN Last Admin: 02/23/17 15:59 Dose: 5 mg Trimethoprim/Sulfamethoxazole (Bactrim Ds -) 1 each PO BID [facility] Last Admin: 02/24/17 10:33 Dose: 1 each - Objective Vital Signs: Vital Signs Temperature 98.9 F 02/24/17 15:55 Pulse Rate 83 02/24/17 15:55 Respiratory Rate 18 02/24/17 15:55 Blood Pressure 144/71 02/24/17 15:55 O2 Sat by Pulse Oximetry (%) 98 02/23/17 21:00 Constitutional: Yes: No Distress, Calm Neck: Yes: Supple Cardiovascular: Yes: Regular Rate and Rhythm Respiratory: Yes: CTA Bilaterally Gastrointestinal: Yes: Normal Bowel Sounds, Soft Wound/Incision: Yes: Dressing Dry and Intact Labs: CBC, BMP 02/23/17 12:40 02/23/17 12:40 INR, PTT INR 1.17 (0.82-1.09) H 02/17/17 13:40 Problem List - Problems (1) Infected wound Code(s): T14.8XXA - OTHER INJURY OF UNSPECIFIED BODY REGION, INITIAL ENCOUNTER; L08.9 - LOCAL INFECTION OF THE SKIN AND SUBCUTANEOUS TISSUE, UNSP (2) 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 chronic peripheral venous hypertension Code(s): I87.332 - CHRONIC VENOUS HTN W ULCER AND INFLAMMATION OF L LOW EXTREM Assessment/Plan Infected B/L LE venous stasis ulcers - polymicrobial infection, s/p debridement. - for d/c home on Levaquin and Bactrim po as instructed - continue wound care pt instructed to seek immediate medical attention if develops abd pain/diarrhea/ chills/or fever - currently stable
[2017-02-24 18:40] VITALS: BP 154/74; PULSE 74; TEMP 97.9
== END 2017-02-24 21:54 | disposition home or self-care (01) | DRG 380 ==
LOC: JER 19:49 → JERBED 22:45 → J6S 23:38 → J8W 02-18 18:25
PROVIDERS: ADMIT Family Medicine; ATTEND Family Medicine
PROC: 0JBN0ZZ Excision of Right Lower Leg Subcutaneous Tissue and Fascia, Open Approach (ICD-10-PCS; 2017-02-19)
PROC: 0JBP0ZZ Excision of Left Lower Leg Subcutaneous Tissue and Fascia, Open Approach (ICD-10-PCS; principal; 2017-02-19 13:30)
DX: L97.818 Non-pressure chronic ulcer of other part of right lower leg with other specified severity (principal); I73.89 Other specified peripheral vascular diseases; I87.332 Chronic venous hypertension (idiopathic) with ulcer and inflammation of left lower extremity; I10 Essential (primary) hypertension; L08.89 Other specified local infections of the skin and subcutaneous tissue; B95.62 Methicillin resistant Staphylococcus aureus infection as the cause of diseases classified elsewhere; E55.9 Vitamin D deficiency, unspecified; Z91.041 Radiographic dye allergy status
CPT/HCPCS: 36415; 71010-TC; 75635-TC; 80048; 80053; 82272; 83036; 83540; 83550; 85025; 85027; 85610; 85651; 86140; 86803; 86850; 86900; 86901; 87040; 87070; 87186; 87205; 88304-TC; 93005; 93010; 93970-TC; 94760; 97116-GP; 97161-GP; 99283-25; G0480; J1644

== ENCOUNTER 2017-03-18 16:21 | Inpatient (IN) | payer OTHER ==
--- NOTE | 2017-03-18 16:30 | PDOC ---
Rapid Medical Evaluation Time Seen by Provider: 03/18/17 16:26 Medical Evaluation: Allergies Allergy/AdvReac Type Severity Reaction Status Date / Time fish derived Allergy Unknown Verified 02/23/17 11:44 shellfish derived Allergy Unknown Verified 02/23/17 11:44 iodine Allergy Itching Verified 02/14/17 19:56 I have performed a brief in-person evaluation of this patient. The patient presents with a chief complaint of: sent by Dr. Evelio Kevin for admission for IV abx for left foot infection. Pertinent physical exam findings: b/l bandaged feet I have ordered the following: sepsis work up The patient will proceed to the ED for further evaluation.
[2017-03-18 16:32] VITALS: BMI 22.6
[2017-03-18 17:02] LABS: BASO % 0.9 % (0-2.0); EOS % 2.9 % (0-4.5); HEMATOCRIT 31.8 % (32.4-45.2); HEMOGLOBIN 10.4 GM/dL (10.7-15.3); LYMPH % 31.1 % (8-40); MCH 27.2 pg (25.7-33.7); MCHC 32.7 g/dl (32.0-36.0); MEAN CELL VOLUME 83.4 fl (80-96); MEAN PLT VOLUME 6.6 fl (7.5-11.1); NEUT % 58.1 % (42.8-82.8); PLATELET COUNT 312 K/MM3 (134-434); RBC 3.81 M/mm3 (3.60-5.2); RDW 16.8 % (11.6-15.6); WHITE BLOOD COUNT 6.7 K/mm3 (4.0-10.0)
[2017-03-18 17:57] LABS: ALBUMIN 3.3 g/dl (3.4-5.0); ALK PHOS 130 U/L (45-117); ANION GAP 5 (8-16); BILIRUBIN,TOTAL 0.6 mg/dL (0.2-1.0); BLOOD UREA NITROGEN 18 mg/dL (7-18); CALCIUM 8.9 mg/dL (8.5-10.1); CHLORIDE 97 mmol/L (98-107); CO2 29 mmol/L (21-32); CREATININE 0.6 mg/dL (0.55-1.02); GLUCOSE,RANDOM 119 mg/dL (74-106); POTASSIUM 4.2 mmol/L (3.5-5.1); SGOT/AST 14 U/L (15-37); SGPT/ALT 15 U/L (12-78); SODIUM 131 mmol/L (136-145); TOT PROT 8.2 g/dl (6.4-8.2)
[2017-03-18 18:35] LABS: URINE APPEARANCE CLEAR; URINE BILIRUBIN NEGATIVE (NEGATIVE); URINE BLOOD NEGATIVE (NEGATIVE); URINE COLOR STRAW; URINE GLUCOSE (UA) NEGATIVE (NEGATIVE); URINE KETONE NEGATIVE (NEGATIVE); URINE LEUK ESTERASE NEGATIVE (NEGATIVE); URINE NITRITE NEGATIVE (NEGATIVE); URINE PROTEIN NEGATIVE (NEGATIVE); URINE UROBILINOGEN NEGATIVE mg/dL (0.2-1.0)
--- NOTE | 2017-03-18 20:29 | PDOC ---
History of Present Illness - General History Source: Patient - History of Present Illness Initial Comments: 03/18/17 20:44 The patient is a 71 year old female, with a significant past medical history of CAD, HTN, PVD, who presents to the emergency department sent by Dr. Evelio Kevin for wound infections to bilateral lower extremities. The patient states her unna boots have not been changes for approximately 7 days prior to arrival. She reports her visiting nurse removed the unna boots and placed bandages to bilateral lower extremities. She complains of pain to her bilateral lower extremities. She denies chest pain, shortness of breath, headache and dizziness. She denies fever, chills, nausea, vomit, diarrhea and constipation. She denies dysuria, frequency, urgency and hematuria. Allergies: NKDA PCP - Dr. Tanner Shannon <Dorota Whaley - Last Filed: 03/19/17 00:08> - General History Source: Patient <Randal Higgins - Last Filed: 03/24/17 20:09> - General Chief Complaint: Wound Infection Stated Complaint: INJURY Time Seen by Provider: 03/18/17 16:26 Past History <Dorota Whaley - Last Filed: 03/19/17 00:08> - Past Medical History COPD: No HTN: Yes - Suicide/Smoking/Psychosocial Hx Smoking History: Never smoked Have you smoked in the past 12 months: No Information on smoking cessation initiated: No Hx Alcohol Use: No Drug/Substance Use Hx: No <Randal Higgins - Last Filed: 03/24/17 20:09> - Past Medical History Allergies/Adverse Reactions: Allergies Allergy/AdvReac Type Severity Reaction Status Date / Time shellfish derived Allergy Unknown Verified 02/23/17 11:44 iodine Allergy Itching Verified 02/14/17 19:56 Home Medications: Ambulatory Orders Aspirin [Aspirin EC] 1 tab PO DAILY 06/02/14 Loratadine 10 mg PO DAILY 02/14/17 Acetaminophen [Tylenol .Regular Strength -] 650 mg PO Q6H PRN tablet 02/24/17 Ferrous Sulfate [Feosol] 325 mg PO BID ud 02/24/17 Lactobacillus Acidophilus [Bacid -] 1 tab PO DAILY #30 tab 02/24/17 Losartan Potassium [Cozaar -] 50 mg PO DAILY tablet 02/24/17 Metoprolol Tartrate [Lopressor -] 50 mg PO DAILY tablet 02/24/17 Review of Systems - Review of Systems Able to Perform ROS?: Yes Comments:: 03/18/17 20:44 CONSTITUTIONAL: Absent: fever, chills, diaphoresis, generalized weakness, malaise, loss of appetite HEENT: Absent: rhinorrhea, nasal congestion, throat pain, throat swelling, difficulty swallowing, mouth swelling, ear pain, eye pain, visual Changes CARDIOVASCULAR: Absent: chest pain, syncope, palpitations, irregular heart rate, lightheadedness , peripheral edema RESPIRATORY: Absent: cough, shortness of breath, dyspnea with exertion, orthopnea, wheezing, stridor, hemoptysis GASTROINTESTINAL: Absent: abdominal pain, abdominal distension, nausea, vomiting, diarrhea, constipation, melena, hematochezia GENITOURINARY: Absent: dysuria, frequency, urgency, hesitancy, hematuria, flank pain, genital pain MUSCULOSKELETAL: (+) pain to bilateral lower extremities. Absent: arthralgia, joint swelling SKIN: (+) bilateral lower extremity wound infections. Absent: rash, itching, pallor HEMATOLOGIC/IMMUNOLOGIC: Absent: easy bleeding, easy bruising, lymphadenopathy, frequent infections ENDOCRINE: Absent: unexplained weight gain, unexplained weight loss, heat intolerance, cold intolerance NEUROLOGIC: Absent: headache, focal weakness or paresthesias, dizziness, unsteady gait, seizure, mental status changes, bladder or bowel incontinence PSYCHIATRIC: Absent: anxiety, depression, suicidal or homicidal ideation, hallucinations. <Dorota Whaley - Last Filed: 03/19/17 00:08> *Physical Exam - Vital Signs Last Vital Signs Temp Pulse Resp BP Pulse Ox 97.8 F 76 20 146/64 100 03/18/17 16:30 03/18/17 16:30 03/18/17 16:30 03/18/17 16:30 03/18/17 16:30 - Physical Exam Comments: 03/18/17 20:46 GENERAL: Well developed, well nourished. Awake and alert. No acute distress. HEENT: Normocephalic, atraumatic. PERRLA, EOMI. No conjunctival pallor. Sclera are non- icteric. Moist mucous membranes. Oropharynx is clear. NECK: Supple. Full ROM. No JVD. Carotid pulses 2+ and symmetric, without bruits. No thyromegaly. No lymphadenopathy. CARDIOVASCULAR: Regular rate and rhythm. No murmurs, rubs, or gallops. Distal pulses are 2+ and symmetric. PULMONARY: No evidence of respiratory distress. Lungs clear to auscultation bilaterally. No wheezing, rales or rhonchi. ABDOMINAL: Soft. Non-tender. Non-distended. No rebound or guarding. No organomegaly. Normoactive bowel sounds. MUSCULOSKELETAL Normal range of motion at all joints. No bony deformities or tenderness. No CVA tenderness. EXTREMITIES: (+) Bandaged from just below knees down to the feet bilaterally. No cyanosis. No clubbing. No edema. No calf tenderness. SKIN: (+) Bandaged from just below knees down to the feet bilaterally. Warm and dry. Normal capillary refill. No rashes. No jaundice. NEUROLOGICAL: Alert, awake, appropriate. Cranial nerves 2-12 intact. Normoreflexic in the upper and lower extremities. Normal speech. Toes are down-going bilaterally. Gait is normal without ataxia. PSYCHIATRIC: Cooperative. Good eye contact. Appropriate mood and affect. <Dorota Whaley - Last Filed: 03/19/17 00:08> - Vital Signs Last Vital Signs Temp Pulse Resp BP Pulse Ox 97.8 F 76 20 146/64 100 03/18/17 16:30 03/18/17 16:30 03/18/17 16:30 03/18/17 16:30 03/18/17 16:30 <Randal Higgins - Last Filed: 03/24/17 20:09> Heart Score/ECG Review - ECG Intrepretation Comment:: 03/18/17 22:13 EKG was read by Dr. Higgins at 21:40 Impression: Normal sinus rhythm with sinus arrhythmia Vent rate: 70 bpm GA Interval: 182 ms QTc: 403 ms <Dorota Whaley - Last Filed: 03/19/17 00:08> ED Treatment Course - LABORATORY CBC & Chemistry Diagram: 03/18/17 16:50 03/18/17 16:50 - ADDITIONAL ORDERS Additional order review: Laboratory Results 03/18/17 03/18/17 03/18/17 18:20 16:50 16:50 Sodium 131 L Potassium 4.2 Chloride 97 L Carbon Dioxide 29 Anion Gap 5 L BUN 18 Creatinine 0.6 Creat Clearance w eGFR > 60 Random Glucose 119 H Lactic Acid 1.0 Calcium 8.9 Total Bilirubin 0.6 D AST 14 L ALT 15 Alkaline Phosphatase 130 H D Total Protein 8.2 Albumin 3.3 L D Urine Color Straw Urine Appearance Clear Urine pH 6.0 Ur Specific [place] 1.004 Urine Protein Negative Urine Glucose (UA) Negative Urine Ketones Negative Urine Blood Negative Urine Nitrite Negative Urine Bilirubin Negative Urine Urobilinogen Negative 03/18/17 16:50 RBC 3.81 MCV 83.4 MCHC 32.7 RDW 16.8 H MPV 6.6 L Neutrophils % 58.1 Lymphocytes % 31.1 D Monocytes % 7.0 Eosinophils % 2.9 Basophils % 0.9 <Dorota Whaley - Last Filed: 03/19/17 00:08> - LABORATORY CBC & Chemistry Diagram: 03/23/17 07:00 03/23/17 07:00 - ADDITIONAL ORDERS Additional order review: Laboratory Results 03/18/17 03/18/17 03/18/17 18:20 16:50 16:50 Sodium 131 L Potassium 4.2 Chloride 97 L Carbon Dioxide 29 Anion Gap 5 L BUN 18 Creatinine 0.6 Creat Clearance w eGFR > 60 Random Glucose 119 H Lactic Acid 1.0 Calcium 8.9 Total Bilirubin 0.6 D AST 14 L ALT 15 Alkaline Phosphatase 130 H D Total Protein 8.2 Albumin 3.3 L D Urine Color Straw Urine Appearance Clear Urine pH 6.0 Ur Specific [place] 1.004 Urine Protein Negative Urine Glucose (UA) Negative Urine Ketones Negative Urine Blood Negative Urine Nitrite Negative Urine Bilirubin Negative Urine Urobilinogen Negative 03/18/17 16:50 RBC 3.81 MCV 83.4 MCHC 32.7 RDW 16.8 H MPV 6.6 L Neutrophils % 58.1 Lymphocytes % 31.1 D Monocytes % 7.0 Eosinophils % 2.9 Basophils % 0.9 <Randal Higgins - Last Filed: 03/24/17 20:09> Medical Decision Making - Medical Decision Making 03/18/17 21:56 Dr. Evelio Kevin was paged via phone answering service requesting a call back for doctor to doctor consult. 03/18/17 22:35 Dr. Evleio Kevin was paged via phone answering service a 2nd time requesting a call back for doctor to doctor consult. 03/18/17 23:06 Dr. Evelio Kevin was paged via phone answering service a 3rd time requesting a call back for doctor to doctor consult. 03/19/17 00:08 Dr. Kevin returned the call and the pt's case was discussed. <Dorota Whaley - Last Filed: 03/19/17 00:08> - Medical Decision Making 03/24/17 20:08 Dr. Higgins: The scribe's documentation has been prepared under my direction and personally reviewed by me in its entirery. I confirm that the note above accurately reflects all work, treatment, procedures, and medical decision making performed by me. 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
[2017-03-18] MEDS ORDERED: LORATADINE 10 MG TABLET PO ONE (23:43)
[2017-03-18] MEDS ORDERED: FERROUS SO4 325 MG TABLET (FP) PO ONE (23:43)
[2017-03-18 23:44] LABS: URINE RBC 0-3 /hpf (0-3); URINE WBC 0-3 (0-5)
[2017-03-18 23:45] LABS: EPI CELLS 1+ /HPF; URINE BACTERIA RARE /hpf (NEGATIVE)
[2017-03-18] MEDS ORDERED: FERROUS SO4 325 MG TABLET (FP) ONE (23:48)
[2017-03-18] MEDS ORDERED: LORATADINE 10 MG TABLET ONE (23:48)
[2017-03-19] MEDS ORDERED: LEVOFLOXACIN 500 MG IVPB 500 MG/100 ML BAG IVPB ONE ×2 (00:13→00:51)
[2017-03-19] MEDS ORDERED: VANCOMYCIN 1 GRAM (PRE-DOCKED) 1,000 MG/250 ML BAG IVPB ONE ×2 (00:13→00:51)
--- NOTE | 2017-03-19 03:31 | HP ---
CHIEF COMPLAINT: B/L LE wounds PCP: Mirtha, Vascular: Audra Kevin, ID: Bobde HISTORY OF PRESENT ILLNESS: This is a 71 year old female with a past medical history of CAD, HTN, PVD, anemia who presented to the ED from the wound clinic for admission. Wound cultures with multiple organisms present including MRSA. Dr. Kevin requesting admission for cellulitis secondary to vascular wounds. Pt reports pain to left lower leg wound and decreased ability to ambulate. She reports that there used to be much more drainage coming from the wounds, but that has improved. ER course was notable for: (1) WBC 6.7 (2) Na 131 Recent Travel: pt denies PAST MEDICAL HISTORY: CAD, HTN, PVD, Anemia PAST SURGICAL HISTORY: Appendectomy 1964 Social History: Smoking: pt denies Alcohol: pt denies Drugs: pt denies Family History: mother in her 70s, had heart disease father age 69, HTN, Etoh sister with HTN and heart disease-unknown if she has had AR Allergies fish derived Allergy (Unknown, Verified 02/23/17 11:44) pt states fish allergy shellfish derived Allergy (Unknown, Verified 02/23/17 11:44) pt states shellfish allergy iodine Allergy (Verified 02/14/17 19:56) Itching HOME MEDICATIONS: 3 Medication Instructions Recorded Aspirin [Aspirin EC] 1 tab PO DAILY 06/02/14 Loratadine 10 mg PO DAILY 02/14/17 Acetaminophen [Tylenol .Regular 650 mg PO Q6H PRN tablet 02/24/17 Strength -] Ferrous Sulfate [Feosol] 325 mg PO BID ud 02/24/17 Lactobacillus Acidophilus [Bacid -] 1 tab PO DAILY #30 tab 02/24/17 Losartan Potassium [Cozaar -] 50 mg PO DAILY tablet 02/24/17 Metoprolol Tartrate [Lopressor -] 50 mg PO DAILY tablet 02/24/17 REVIEW OF SYSTEMS CONSTITUTIONAL: Absent: fever, chills, diaphoresis, generalized weakness, malaise, loss of appetite, weight change HEENT: Absent: rhinorrhea, nasal congestion, throat pain, throat swelling, difficulty swallowing, mouth swelling, ear pain, eye pain, visual changes CARDIOVASCULAR: Absent: chest pain, syncope, palpitations, irregular heart rate, lightheadedness , peripheral edema RESPIRATORY: Absent: cough, shortness of breath, dyspnea with exertion, orthopnea, wheezing, stridor, hemoptysis GASTROINTESTINAL: Absent: abdominal pain, abdominal distension, nausea, vomiting, diarrhea, constipation, melena, hematochezia GENITOURINARY: Absent: dysuria, frequency, urgency, hesitancy, hematuria, flank pain, genital pain MUSCULOSKELETAL: Absent: myalgia, arthralgia, joint swelling, back pain, neck pain SKIN: Present: chronic vascular wounds B/L LE Absent: rash, itching, pallor HEMATOLOGIC/IMMUNOLOGIC: Absent: easy bleeding, easy bruising, lymphadenopathy, frequent infections ENDOCRINE: Absent: unexplained weight gain, unexplained weight loss, heat intolerance, cold intolerance NEUROLOGIC: Absent: headache, focal weakness or paresthesias, dizziness, unsteady gait, seizure, mental status changes, bladder or bowel incontinence PSYCHIATRIC: Absent: anxiety, depression, suicidal or homicidal ideation, hallucinations. PHYSICAL EXAMINATION Vital Signs - 24 hr 3 03/18/17 16:30 Temperature 97.8 F Pulse Rate 76 Respiratory 20 Rate Blood Pressure 146/64 O2 Sat by Pulse 100 Oximetry (%) GENERAL: Awake, alert, and fully oriented, in no acute distress. HEAD: Normal with no signs of trauma. EYES: Pupils equal, round and reactive to light, extraocular movements intact, sclera anicteric, conjunctiva clear. No lid lag. EARS, NOSE, THROAT: Ears normal, nares patent, oropharynx clear without exudates. Moist mucous membranes. NECK: Normal range of motion, supple without lymphadenopathy, JVD, or masses. LUNGS: Breath sounds equal, clear to auscultation bilaterally. No wheezes, and no crackles. No accessory muscle use. HEART: Regular rate and rhythm, normal S1 and S2 without murmur, rub or gallop. ABDOMEN: Soft, nontender, not distended, normoactive bowel sounds, no guarding, no rebound, no masses. No hepatomegaly or splenomegaly. MUSCULOSKELETAL: Normal range of motion at all joints. No bony deformities or tenderness. No CVA tenderness. UPPER EXTREMITIES: 2+ pulses, warm, well-perfused. No cyanosis. No clubbing. No peripheral edema. LOWER EXTREMITIES: decreased pedal pulses, warm. No calf tenderness. No peripheral edema. LLE wound irreg, 16cm x 11.5cm, minimal depth, wound bed beefy red, medial aspect noted with slough, surrounding skin darkened; RLE wound 8.5cm x 4.7cm, minimal depth, wound bed beefy red, no slough noted, surrounding skin darkened but no obvious edema or erythema. NEUROLOGICAL: Cranial nerves II-XII intact. Normal speech. Normal gait. PSYCHIATRIC: Cooperative. Good eye contact. Appropriate mood and affect. SKIN: Warm, dry, normal turgor, no rashes or lesions noted, normal capillary refill. Laboratory Results - last 24 hr 3 03/18/17 03/18/17 03/18/17 16:50 16:50 16:50 WBC 6.7 D RBC 3.81 Hgb 10.4 L Hct 31.8 L MCV 83.4 MCH 27.2 MCHC 32.7 RDW 16.8 H Plt Count 312 D MPV 6.6 L Neutrophils % 58.1 Lymphocytes % 31.1 D Monocytes % 7.0 Eosinophils % 2.9 Basophils % 0.9 Sodium 131 L Potassium 4.2 Chloride 97 L Carbon Dioxide 29 Anion Gap 5 L BUN 18 Creatinine 0.6 Creat Clearance w eGFR > 60 Random Glucose 119 H Lactic Acid 1.0 Calcium 8.9 Total Bilirubin 0.6 D AST 14 L ALT 15 Alkaline Phosphatase 130 H D Total Protein 8.2 Albumin 3.3 L D Urine Color Urine Appearance Urine pH Ur Specific [place] Urine Protein Urine Glucose (UA) Urine Ketones Urine Blood Urine Nitrite Urine Bilirubin Urine Urobilinogen Ur Leukocyte Esterase Urine RBC Urine WBC Ur Epithelial Cells Urine Bacteria 3 03/18/17 18:20 WBC RBC Hgb Hct MCV MCH MCHC RDW Plt Count MPV Neutrophils % Lymphocytes % Monocytes % Eosinophils % Basophils % Sodium Potassium Chloride Carbon Dioxide Anion Gap BUN Creatinine Creat Clearance w eGFR Random Glucose Lactic Acid Calcium Total Bilirubin AST ALT Alkaline Phosphatase Total Protein Albumin Urine Color Straw Urine Appearance Clear Urine pH 6.0 Ur Specific [place] 1.004 Urine Protein Negative Urine Glucose (UA) Negative Urine Ketones Negative Urine Blood Negative Urine Nitrite Negative Urine Bilirubin Negative Urine Urobilinogen Negative Ur Leukocyte Esterase Trace H Urine RBC 0-3 Urine WBC 0-3 Ur Epithelial Cells 1+ Urine Bacteria Rare ASSESSMENT/PLAN: 71yF with PMH CAD, HTN, PVD, anemia presented with positive wound cultures including MRSA for B/L LE chronic vascular wounds. Cellulitis secondary to vascular wounds - given levaquin and vanco x 1 in ED - ID consult - Dr. Trent - vascular consult Mild hyponatremia - trial gentle IVF: NS @ 83cc/hr HTN - cont home meds: diovan, metoprolol CAD - cont ASA, metoprolol Anemia - cont FeSO4 DVT PPX - heparin 5000units SC TID FEN - NS @ 83cc/hr - repeat BMP in am - low sodium diet in am Dispo: Pt currently requires inpatient management of her emergent condition. Visit type - Emergency Visit Emergency Visit: Yes ED Registration Date: 03/18/17 Care time: The patient presented to the Emergency Department on the above date and was hospitalized for further evaluation of their emergent condition. - New Patient This patient is new to me today: Yes Date on this admission: 03/19/17 - Critical Care Critical Care patient: No
[2017-03-19] MEDS ORDERED: oxyCODONE HCL 5 MG TABLET PO PRN (04:04)
[2017-03-19] MEDS ORDERED: ACETAMINOPHEN 325 MG TABLET (FP) ONE ×2 (04:19→22:53)
[2017-03-19] MEDS: SODIUM CHLORIDE 1,000 ML IV SCH (04:25)
[2017-03-19] MEDS: ACETAMINOPHEN 325 MG TABLET (FP) PO PRN ×2 (04:40→23:13)
[2017-03-19] MEDS ORDERED: HEPARIN NA (PORCINE) 5,000 UNITS/ML 1ML VIAL ONE (05:47)
[2017-03-19] MEDS: HEPARIN NA (PORCINE) 5,000 UNITS/ML 1ML VIAL SQ SCH ×3 (05:57→22:49)
[2017-03-19 07:18] LABS: BASO % 0.4 % (0-2.0); EOS % 3.9 % (0-4.5); HEMATOCRIT 29.3 % (32.4-45.2); HEMOGLOBIN 9.3 GM/dL (10.7-15.3); LYMPH % 29.5 % (8-40); MCH 26.9 pg (25.7-33.7); MCHC 31.9 g/dl (32.0-36.0); MEAN CELL VOLUME 84.2 fl (80-96); MONO % 10.8 % (3.8-10.2); NEUT % 55.4 % (42.8-82.8); PLATELET COUNT 252 K/MM3 (134-434); RBC 3.47 M/mm3 (3.60-5.2); WHITE BLOOD COUNT 6.6 K/mm3 (4.0-10.0)
[2017-03-19 07:42] LABS: ANION GAP 8 (8-16); BLOOD UREA NITROGEN 15 mg/dL (7-18); CALCIUM 8.7 mg/dL (8.5-10.1); CHLORIDE 99 mmol/L (98-107); CO2 28 mmol/L (21-32); CREATININE 0.6 mg/dL (0.55-1.02); GLUCOSE,RANDOM 92 mg/dL (74-106); PHOSPHOROUS 3.9 mg/dL (2.5-4.9); POTASSIUM 4.3 mmol/L (3.5-5.1); SODIUM 135 mmol/L (136-145)
[2017-03-19] MEDS: LOSARTAN POTASSIUM 50 MG TABLET (FP) PO SCH (10:47)
[2017-03-19] MEDS: METOPROLOL TARTRATE 50 MG TABLET (FP) PO SCH (10:47)
--- NOTE | 2017-03-19 12:28 | EKG ---
Test Reason : Blood Pressure : / mmHG Vent. Rate : 070 BPM Atrial Rate : 070 BPM P-R Int : 182 ms QRS Dur : 072 ms QT Int : 374 ms P-R-T Axes : 063 049 054 degrees QTc Int : 403 ms NORMAL SINUS RHYTHM WITH SINUS ARRHYTHMIA CANNOT RULE OUT ANTERIOR INFARCT (CITED ON OR BEFORE 15-FEB-2017) ABNORMAL ECG WHEN COMPARED WITH ECG OF 15-FEB-2017 00:14, NO SIGNIFICANT CHANGE WAS FOUND Confirmed by SALMA LORENZO MD ([id number]) on 03/19/2017 12:27:50 PM Referred By: Confirmed By:SALMA LORENZO MD
[2017-03-19] MEDS ORDERED: FERROUS SO4 325 MG TABLET (FP) ONE (22:37)
[2017-03-19] MEDS: FERROUS SO4 325 MG TABLET (FP) PO SCH (22:49)
[2017-03-20] MEDS: SODIUM CHLORIDE 1,000 ML IV SCH (04:42)
[2017-03-20 08:24] LABS: BASO % 1.2 % (0-2.0); EOS % 7.5 % (0-4.5); HEMATOCRIT 32.9 % (32.4-45.2); HEMOGLOBIN 10.4 GM/dL (10.7-15.3); LYMPH % 35.3 % (8-40); MCH 26.9 pg (25.7-33.7); MCHC 31.6 g/dl (32.0-36.0); MEAN CELL VOLUME 84.9 fl (80-96); MEAN PLT VOLUME 7.1 fl (7.5-11.1); MONO % 8.9 % (3.8-10.2); NEUT % 47.1 % (42.8-82.8); PLATELET COUNT 262 K/MM3 (134-434); RBC 3.87 M/mm3 (3.60-5.2); RDW 16.8 % (11.6-15.6)
[2017-03-20 09:01] LABS: CHLORIDE 101 mmol/L (98-107); POTASSIUM 4.2 mmol/L (3.5-5.1); SODIUM 135 mmol/L (136-145)
[2017-03-20 09:06] LABS: ANION GAP 4 (8-16); BLOOD UREA NITROGEN 15 mg/dL (7-18); CALCIUM 8.4 mg/dL (8.5-10.1); CO2 30 mmol/L (21-32); CREATININE 0.6 mg/dL (0.55-1.02); GLUCOSE,RANDOM 95 mg/dL (74-106)
[2017-03-20] MEDS: HEPARIN NA (PORCINE) 5,000 UNITS/ML 1ML VIAL SQ SCH ×3 (10:53→21:28)
[2017-03-20] MEDS: METOPROLOL TARTRATE 50 MG TABLET (FP) PO SCH (10:55)
[2017-03-20] MEDS: FERROUS SO4 325 MG TABLET (FP) PO SCH ×2 (10:55→21:29)
[2017-03-20] MEDS: LOSARTAN POTASSIUM 50 MG TABLET (FP) PO SCH (10:55)
[2017-03-20] MEDS: LACTOBACILLUS ACIDOPHILUS 1 EACH TAB (FP) PO SCH (10:56)
[2017-03-20] MEDS: LORATADINE 10 MG TABLET PO SCH (10:56)
--- NOTE | 2017-03-20 12:52 | CON.ID ---
Consult Consult Specialty:: infectious diseases Reason for Consultation:: non healing ulcer of both legs - History of Present Illness Chief Complaint: non healing ulcers History of Present Illness: 71 year old female with a past medical history of CAD, HTN, PVD, anemia who presented to the ED from the wound clinic for admission. Wound cultures with multiple organisms present including MRSA. Pt reports pain to left lower leg wound and decreased ability to ambulate. patient was treated previously for the same - History Source History Provided By: Patient - Past Medical History Cardio/Vascular: Yes: HTN Additional Medical History: PVD - Alcohol/Substance Use Hx Alcohol Use: No - Smoking History Smoking history: Never smoked Have you smoked in the past 12 months: No - Social History Usual Living Arrangement: Other (with her daughter) History of Recent Travel: No Home Medications - Allergies Allergies/Adverse Reactions: Allergies Allergy/AdvReac Type Severity Reaction Status Date / Time fish derived Allergy Unknown Verified 02/23/17 11:44 shellfish derived Allergy Unknown Verified 02/23/17 11:44 iodine Allergy Itching Verified 02/14/17 19:56 - Home Medications Home Medications: Ambulatory Orders Aspirin [Aspirin EC] 1 tab PO DAILY 06/02/14 Loratadine 10 mg PO DAILY 02/14/17 Acetaminophen [Tylenol .Regular Strength -] 650 mg PO Q6H PRN tablet 02/24/17 Ferrous Sulfate [Feosol] 325 mg PO BID ud 02/24/17 Lactobacillus Acidophilus [Bacid -] 1 tab PO DAILY #30 tab 02/24/17 Losartan Potassium [Cozaar -] 50 mg PO DAILY tablet 02/24/17 Metoprolol Tartrate [Lopressor -] 50 mg PO DAILY tablet 02/24/17 Review of Systems - Review of Systems Constitutional: reports: No Symptoms Eyes: reports: No Symptoms HENT: reports: No Symptoms Neck: reports: No Symptoms Cardiovascular: reports: No Symptoms Respiratory: reports: No Symptoms Gastrointestinal: reports: No Symptoms Genitourinary: reports: No Symptoms Musculoskeletal: reports: Extremity Pain, Other Integumentary: reports: Lesions Neurological: reports: No Symptoms Endocrine: reports: No Symptoms Hematology/Lymphatic: reports: No Symptoms Psychiatric: reports: No Symptoms Physical Exam Vital Signs: Vital Signs Temperature 99.1 F 03/19/17 19:22 Pulse Rate 77 03/19/17 19:22 Respiratory Rate 18 03/19/17 19:22 Blood Pressure 126/60 03/19/17 19:22 O2 Sat by Pulse Oximetry (%) 98 03/20/17 07:20 Constitutional: Yes: No Distress, Calm, Thin Neck: Yes: Supple, Trachea Midline Cardiovascular: Yes: Regular Rate and Rhythm Respiratory: Yes: Regular, CTA Bilaterally Gastrointestinal: Yes: Normal Bowel Sounds, Soft Musculoskeletal: Yes: Other Extremities: Yes: Other Integumentary: Yes: Venous Stasis Changes, Other Wound/Incision: Yes: Draining, Reddened Neurological: Yes: Alert, Oriented Psychiatric: Yes: Alert, Oriented Labs: CBC, BMP 03/20/17 07:30 03/20/17 07:30 Assessment/Plan Problem List - Problems (1) 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 chronic peripheral venous hypertension Code(s): I87.332 - CHRONIC VENOUS HTN W ULCER AND INFLAMMATION OF L LOW EXTREM (2) HTN (hypertension) Code(s): I10 - ESSENTIAL (PRIMARY) HYPERTENSION Qualifiers: Hypertension type: essential hypertension Qualified Code(s): I10 - Essential (primary) hypertension (3) Infected wound Code(s): T14.8XXA - OTHER INJURY OF UNSPECIFIED BODY REGION, INITIAL ENCOUNTER; L08.9 - LOCAL INFECTION OF THE SKIN AND SUBCUTANEOUS TISSUE, UNSP (4) PVD (peripheral vascular disease) Code(s): I73.9 - PERIPHERAL VASCULAR DISEASE, UNSPECIFIED (5) Venous stasis ulcers of both lower extremities Code(s): I83.019 - VARICOSE VEINS OF RIGHT LOWER EXTREMITY W ULCER OF UNSP SITE ; I83.029 - VARICOSE VEINS OF LEFT LOWER EXTREMITY W ULCER OF UNSP SITE plan will start patient on vanco and zosyn cx results noted sensitivities note rest as per primary team wound care
--- NOTE | 2017-03-20 13:36 | PN ---
Progress Note, Physician Chief Complaint: AWAKE ALERT NAD DISCUSSED WITH HER PLAN OF CARE AND AGREEING TO STAY FOR WOUND CARE AND IV ABX - Current Medication List Current Medications: Active Medications Acetaminophen (Tylenol -) 650 mg PO Q6H PRN PRN Reason: FEVER OR PAIN Last Admin: 03/19/17 23:13 Dose: 650 mg Ferrous Sulfate (Feosol -) 325 mg PO BID [facility] Last Admin: 03/20/17 10:55 Dose: 325 mg Heparin Sodium (Porcine) (Heparin -) 5,000 unit SQ TID [facility] Last Admin: 03/20/17 10:53 Dose: 5,000 unit Sodium Chloride (Normal Saline -) 1,000 mls @ 83 mls/hr IV ASDIR [facility] Last Admin: 03/20/17 04:42 Dose: 83 mls/hr Vancomycin HCl 1,250 mg/ (Dextrose) 250 mls @ 166.667 mls/hr IVPB DAILY@1500 PAUL PRN Reason: Protocol Piperacillin Sod/Tazobactam (Sod 3.375 gm/ Dextrose) 100 mls @ 100 mls/hr IVPB Q8H-IV PAUL PRN Reason: Protocol Lactobacillus Acidophilus (Bacid -) 1 tab PO DAILY [facility] Last Admin: 03/20/17 10:56 Dose: 1 tab Loratadine (Claritin -) 10 mg PO DAILY [facility] Last Admin: 03/20/17 10:56 Dose: 10 mg Losartan Potassium (Cozaar -) 50 mg PO DAILY [facility] Last Admin: 03/20/17 10:55 Dose: 50 mg Metoprolol Tartrate (Lopressor -) 50 mg PO DAILY [facility] Last Admin: 03/20/17 10:55 Dose: 50 mg Oxycodone HCl (Roxicodone -) 5 mg PO Q6H PRN PRN Reason: PAIN - Objective Vital Signs: Vital Signs Temperature 99.1 F 03/19/17 19:22 Pulse Rate 77 03/19/17 19:22 Respiratory Rate 18 03/19/17 19:22 Blood Pressure 126/60 03/19/17 19:22 O2 Sat by Pulse Oximetry (%) 98 03/20/17 07:20 Constitutional: Yes: Mild Distress Eyes: Yes: WNL HENT: Yes: WNL Neck: Yes: WNL Cardiovascular: Yes: WNL Respiratory: Yes: WNL Gastrointestinal: Yes: WNL Genitourinary: Yes: WNL Musculoskeletal: Yes: Muscle Pain Extremities: Yes: Deformity, Other Edema: No Peripheral Pulses WNL: Yes Integumentary: Yes: Pressure Ulcer, Skin Tear, Venous Stasis Changes Wound/Incision: Yes: Dressing Dry and Intact, Excoriated, Unapproximated Neurological: Yes: Pre-Existing Deficit ...Motor Strength: LLE, RLE Psychiatric: Yes: WNL Labs: CBC, BMP 03/20/17 07:30 03/20/17 07:30 Problem List - Problems (1) 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 chronic peripheral venous hypertension Code(s): I87.332 - CHRONIC VENOUS HTN W ULCER AND INFLAMMATION OF L LOW EXTREM (2) HTN (hypertension) Code(s): I10 - ESSENTIAL (PRIMARY) HYPERTENSION Qualifiers: Hypertension type: essential hypertension Qualified Code(s): I10 - Essential (primary) hypertension (3) Infected wound Code(s): T14.8XXA - OTHER INJURY OF UNSPECIFIED BODY REGION, INITIAL ENCOUNTER; L08.9 - LOCAL INFECTION OF THE SKIN AND SUBCUTANEOUS TISSUE, UNSP (4) PVD (peripheral vascular disease) Code(s): I73.9 - PERIPHERAL VASCULAR DISEASE, UNSPECIFIED (5) Venous stasis ulcers of both lower extremities Code(s): I83.019 - VARICOSE VEINS OF RIGHT LOWER EXTREMITY W ULCER OF UNSP SITE ; I83.029 - VARICOSE VEINS OF LEFT LOWER EXTREMITY W ULCER OF UNSP SITE Assessment/Plan IV ABX SANTYL TO LEGS WOUND CARE DAILY ID AND VASC SX CONSULT DVT PROPHYLAXIS
--- NOTE | 2017-03-20 15:14 | PN ---
Progress Note (short form) - Note Progress Note: Vascular Surgery Pt seen and examined. Well known to wound care service. Here for IV antibiotics for resistant pseudomonas. ID on case for IV antibiotics. Will start santyl and selina bandages to both legs. leg elevation. Evelio Kevin DO
[2017-03-20] MEDS ORDERED: PT OWN MED DRAWER 7, Y5N ONE (16:33)
[2017-03-20] MEDS: PIPERACILLIN/TAZOB 3.375 GM 3.375 GM in DEXTROSE 5%-WATER - 100 ML IVPB SCH ×2 (16:54→21:00)
[2017-03-20] MEDS: VANCOMYCIN 1,250 MG in DEXTROSE 5%-WATER - 250 ML IVPB SCH ×2 (16:55→18:15)
[2017-03-20] MEDS: COLLAGENASE CLOSTRIDIUM HIST. 30 GRAMS TUBE TP SCH (19:02)
[2017-03-21] MEDS: ACETAMINOPHEN 325 MG TABLET (FP) PO PRN (00:11)
[2017-03-21] MEDS ORDERED: PT OWN MED DRAWER 7, Y5N ONE ×7 (00:56→22:07)
[2017-03-21] MEDS: PIPERACILLIN/TAZOB 3.375 GM 3.375 GM in DEXTROSE 5%-WATER - 100 ML IVPB SCH ×3 (01:54→17:32)
[2017-03-21] MEDS: SODIUM CHLORIDE 1,000 ML IV SCH ×2 (06:45→22:19)
[2017-03-21] MEDS: HEPARIN NA (PORCINE) 5,000 UNITS/ML 1ML VIAL SQ SCH ×3 (06:46→22:19)
--- NOTE | 2017-03-21 08:10 | PN ---
Progress Note, Physician - Current Medication List Current Medications: Active Medications Acetaminophen (Tylenol -) 650 mg PO Q6H PRN PRN Reason: FEVER OR PAIN Last Admin: 03/21/17 00:11 Dose: 650 mg Collagenase (Santyl -) 1 applic TP DAILY [facility] Last Admin: 03/20/17 19:02 Dose: Not Given Ferrous Sulfate (Feosol -) 325 mg PO BID [facility] Last Admin: 03/20/17 21:29 Dose: 325 mg Heparin Sodium (Porcine) (Heparin -) 5,000 unit SQ TID [facility] Last Admin: 03/21/17 06:46 Dose: 5,000 unit Sodium Chloride (Normal Saline -) 1,000 mls @ 83 mls/hr IV ASDIR [facility] Last Admin: 03/21/17 06:45 Dose: 83 mls/hr Vancomycin HCl 1,250 mg/ (Dextrose) 250 mls @ 166.667 mls/hr IVPB DAILY@1500 PAUL PRN Reason: Protocol Last Admin: 03/20/17 18:15 Dose: 166.667 mls/hr Piperacillin Sod/Tazobactam (Sod 3.375 gm/ Dextrose) 100 mls @ 100 mls/hr IVPB Q8H-IV PAUL PRN Reason: Protocol Last Admin: 03/21/17 01:54 Dose: 100 mls/hr Lactobacillus Acidophilus (Bacid -) 1 tab PO DAILY [facility] Last Admin: 03/20/17 10:56 Dose: 1 tab Loratadine (Claritin -) 10 mg PO DAILY [facility] Last Admin: 03/20/17 10:56 Dose: 10 mg Losartan Potassium (Cozaar -) 50 mg PO DAILY [facility] Last Admin: 03/20/17 10:55 Dose: 50 mg Metoprolol Tartrate (Lopressor -) 50 mg PO DAILY [facility] Last Admin: 03/20/17 10:55 Dose: 50 mg Oxycodone HCl (Roxicodone -) 5 mg PO Q6H PRN PRN Reason: PAIN - Objective Vital Signs: Vital Signs Temperature 96.6 F L 03/21/17 06:00 Pulse Rate 74 03/21/17 06:00 Respiratory Rate 18 03/21/17 06:00 Blood Pressure 140/82 03/21/17 06:00 O2 Sat by Pulse Oximetry (%) 100 03/20/17 21:00 Cardiovascular: Yes: S1, S2 Respiratory: Yes: Regular, CTA Bilaterally Gastrointestinal: Yes: Normal Bowel Sounds, Soft Wound/Incision: Yes: Dressing Dry and Intact Labs: CBC, BMP 03/20/17 07:30 03/20/17 07:30 Problem List - Problems (1) Infected wound Assessment/Plan: IV ABX MONITOR WOUND CARE PER DR BLANCAS Code(s): T14.8XXA - OTHER INJURY OF UNSPECIFIED BODY REGION, INITIAL ENCOUNTER; L08.9 - LOCAL INFECTION OF THE SKIN AND SUBCUTANEOUS TISSUE, UNSP (2) 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
[2017-03-21] MEDS: FERROUS SO4 325 MG TABLET (FP) PO SCH ×2 (09:48→22:22)
[2017-03-21] MEDS: LOSARTAN POTASSIUM 50 MG TABLET (FP) PO SCH (09:48)
[2017-03-21] MEDS: LORATADINE 10 MG TABLET PO SCH (09:48)
[2017-03-21] MEDS: LACTOBACILLUS ACIDOPHILUS 1 EACH TAB (FP) PO SCH (09:48)
[2017-03-21] MEDS: METOPROLOL TARTRATE 50 MG TABLET (FP) PO SCH (09:49)
[2017-03-21] MEDS: VANCOMYCIN 1,250 MG in DEXTROSE 5%-WATER - 250 ML IVPB SCH (14:47)
--- NOTE | 2017-03-21 16:07 | PN ---
Progress Note, Physician History of Present Illness: Infectious Disease f/u: Pt known to me from previous admission for infected LE ulcers. Records reviewed and events noted. She is able to ambulate and has less pain than on previous admission. Is afebrile, without any new specific complaints. - Current Medication List Current Medications: Active Medications Acetaminophen (Tylenol -) 650 mg PO Q6H PRN PRN Reason: FEVER OR PAIN Last Admin: 03/21/17 00:11 Dose: 650 mg Collagenase (Santyl -) 1 applic TP DAILY [facility] Last Admin: 03/20/17 19:02 Dose: Not Given Ferrous Sulfate (Feosol -) 325 mg PO BID [facility] Last Admin: 03/21/17 09:48 Dose: 325 mg Heparin Sodium (Porcine) (Heparin -) 5,000 unit SQ TID [facility] Last Admin: 03/21/17 14:46 Dose: 5,000 unit Sodium Chloride (Normal Saline -) 1,000 mls @ 83 mls/hr IV ASDIR [facility] Last Admin: 03/21/17 06:45 Dose: 83 mls/hr Vancomycin HCl 1,250 mg/ (Dextrose) 250 mls @ 166.667 mls/hr IVPB DAILY@1500 PAUL PRN Reason: Protocol Last Admin: 03/21/17 14:47 Dose: 166.667 mls/hr Piperacillin Sod/Tazobactam (Sod 3.375 gm/ Dextrose) 100 mls @ 100 mls/hr IVPB Q8H-IV PAUL PRN Reason: Protocol Last Admin: 03/21/17 09:49 Dose: 100 mls/hr Lactobacillus Acidophilus (Bacid -) 1 tab PO DAILY [facility] Last Admin: 03/21/17 09:48 Dose: 1 tab Loratadine (Claritin -) 10 mg PO DAILY [facility] Last Admin: 03/21/17 09:48 Dose: 10 mg Losartan Potassium (Cozaar -) 50 mg PO DAILY [facility] Last Admin: 03/21/17 09:48 Dose: 50 mg Metoprolol Tartrate (Lopressor -) 50 mg PO DAILY [facility] Last Admin: 03/21/17 09:49 Dose: 50 mg Oxycodone HCl (Roxicodone -) 5 mg PO Q6H PRN PRN Reason: PAIN Silver Sulfadiazine (Silvadene -) 1 applic TP DAILY [facility] - Objective Vital Signs: Vital Signs Temperature 98.2 F 03/21/17 15:04 Pulse Rate 82 03/21/17 15:04 Respiratory Rate 16 03/21/17 15:04 Blood Pressure 143/75 03/21/17 15:04 O2 Sat by Pulse Oximetry (%) 100 03/20/17 21:00 Constitutional: Yes: No Distress, Calm Cardiovascular: Yes: Regular Rate and Rhythm Respiratory: Yes: CTA Bilaterally Gastrointestinal: Yes: Normal Bowel Sounds, Soft Genitourinary: Yes: WNL Edema: No Integumentary: Yes: Venous Stasis Changes (b/l LE extensive ulcers with mild drainage, necrotic edges, no significant juan josé-wound erythema) Neurological: Yes: Alert Labs: CBC, BMP 03/20/17 07:30 03/20/17 07:30 Problem List - Problems (1) 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 chronic peripheral venous hypertension Code(s): I87.332 - CHRONIC VENOUS HTN W ULCER AND INFLAMMATION OF L LOW EXTREM (2) HTN (hypertension) Code(s): I10 - ESSENTIAL (PRIMARY) HYPERTENSION Qualifiers: Hypertension type: essential hypertension Qualified Code(s): I10 - Essential (primary) hypertension (3) Infected wound Code(s): T14.8XXA - OTHER INJURY OF UNSPECIFIED BODY REGION, INITIAL ENCOUNTER; L08.9 - LOCAL INFECTION OF THE SKIN AND SUBCUTANEOUS TISSUE, UNSP (4) PVD (peripheral vascular disease) Code(s): I73.9 - PERIPHERAL VASCULAR DISEASE, UNSPECIFIED (5) Venous stasis ulcers of both lower extremities Code(s): I83.019 - VARICOSE VEINS OF RIGHT LOWER EXTREMITY W ULCER OF UNSP SITE ; I83.029 - VARICOSE VEINS OF LEFT LOWER EXTREMITY W ULCER OF UNSP SITE Assessment/Plan Pt had recent hospital admission during which she was treated for polymicrobial infection of extensive b/l LE chronic venous stasis ulcers and had undergone debridement. She completed course of IV and then po antibiotic treatment. States she had horacio boot as outpt but now re-admitted for possible re-infection of LE ulcers. On this admission pt states pain is less and has been ambulatory. - continue IV antibiotics for now - vascular surgery f/u - continue wound care
[2017-03-21] MEDS: SILVER SULFADIAZINE 1% TOP CREAM 50 GM JAR TP SCH (16:55)
[2017-03-21] MEDS: COLLAGENASE CLOSTRIDIUM HIST. 30 GRAMS TUBE TP SCH (16:55)
[2017-03-22] MEDS: PIPERACILLIN/TAZOB 3.375 GM 3.375 GM in DEXTROSE 5%-WATER - 100 ML IVPB SCH ×3 (02:05→17:22)
[2017-03-22] MEDS: HEPARIN NA (PORCINE) 5,000 UNITS/ML 1ML VIAL SQ SCH ×3 (06:35→22:35)
[2017-03-22 06:59] LABS: BASO % 0.7 % (0-2.0); EOS % 5.8 % (0-4.5); HEMATOCRIT 29.4 % (32.4-45.2); HEMOGLOBIN 9.7 GM/dL (10.7-15.3); LYMPH % 26.2 % (8-40); MCH 27.6 pg (25.7-33.7); MCHC 32.9 g/dl (32.0-36.0); MEAN CELL VOLUME 83.9 fl (80-96); MEAN PLT VOLUME 6.9 fl (7.5-11.1); NEUT % 58.3 % (42.8-82.8); PLATELET COUNT 232 K/MM3 (134-434); RDW 16.8 % (11.6-15.6); WHITE BLOOD COUNT 5.5 K/mm3 (4.0-10.0)
[2017-03-22 07:26] LABS: ALBUMIN 2.7 g/dl (3.4-5.0); ANION GAP 6 (8-16); BLOOD UREA NITROGEN 10 mg/dL (7-18); CHLORIDE 103 mmol/L (98-107); CO2 28 mmol/L (21-32); CREATININE 0.7 mg/dL (0.55-1.02); GLUCOSE,RANDOM 99 mg/dL (74-106); POTASSIUM 3.6 mmol/L (3.5-5.1); SGOT/AST 16 U/L (15-37); SGPT/ALT 13 U/L (12-78); SODIUM 137 mmol/L (136-145)
[2017-03-22 07:27] LABS: ALK PHOS 98 U/L (45-117); BILIRUBIN,TOTAL 0.7 mg/dL (0.2-1.0); TOT PROT 6.7 g/dl (6.4-8.2)
--- NOTE | 2017-03-22 09:39 | PN ---
Progress Note, Physician - Current Medication List Current Medications: Active Medications Acetaminophen (Tylenol -) 650 mg PO Q6H PRN PRN Reason: FEVER OR PAIN Last Admin: 03/21/17 00:11 Dose: 650 mg Collagenase (Santyl -) 1 applic TP DAILY [facility] Last Admin: 03/21/17 16:55 Dose: Not Given Ferrous Sulfate (Feosol -) 325 mg PO BID [facility] Last Admin: 03/21/17 22:22 Dose: 325 mg Heparin Sodium (Porcine) (Heparin -) 5,000 unit SQ TID [facility] Last Admin: 03/22/17 06:35 Dose: 5,000 unit Sodium Chloride (Normal Saline -) 1,000 mls @ 83 mls/hr IV ASDIR [facility] Last Admin: 03/21/17 22:19 Dose: 83 mls/hr Vancomycin HCl 1,250 mg/ (Dextrose) 250 mls @ 166.667 mls/hr IVPB DAILY@1500 PAUL PRN Reason: Protocol Last Admin: 03/21/17 14:47 Dose: 166.667 mls/hr Piperacillin Sod/Tazobactam (Sod 3.375 gm/ Dextrose) 100 mls @ 100 mls/hr IVPB Q8H-IV PAUL PRN Reason: Protocol Last Admin: 03/22/17 02:05 Dose: 100 mls/hr Lactobacillus Acidophilus (Bacid -) 1 tab PO DAILY [facility] Last Admin: 03/21/17 09:48 Dose: 1 tab Loratadine (Claritin -) 10 mg PO DAILY [facility] Last Admin: 03/21/17 09:48 Dose: 10 mg Losartan Potassium (Cozaar -) 50 mg PO DAILY [facility] Last Admin: 03/21/17 09:48 Dose: 50 mg Metoprolol Tartrate (Lopressor -) 50 mg PO DAILY [facility] Last Admin: 03/21/17 09:49 Dose: 50 mg Silver Sulfadiazine (Silvadene -) 1 applic TP DAILY [facility] Last Admin: 03/21/17 16:55 Dose: 1 applic - Objective Vital Signs: Vital Signs Temperature 98.5 F 03/22/17 06:00 Pulse Rate 75 03/22/17 06:00 Respiratory Rate 18 03/22/17 06:00 Blood Pressure 166/66 03/22/17 06:00 O2 Sat by Pulse Oximetry (%) 100 03/21/17 21:00 Labs: CBC, BMP 03/22/17 06:30 03/22/17 06:30 Problem List - Problems (1) Infected wound Code(s): T14.8XXA - OTHER INJURY OF UNSPECIFIED BODY REGION, INITIAL ENCOUNTER; L08.9 - LOCAL INFECTION OF THE SKIN AND SUBCUTANEOUS TISSUE, UNSP (2) 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 chronic peripheral venous hypertension Code(s): I87.332 - CHRONIC VENOUS HTN W ULCER AND INFLAMMATION OF L LOW EXTREM (3) HTN (hypertension) Code(s): I10 - ESSENTIAL (PRIMARY) HYPERTENSION Qualifiers: Hypertension type: essential hypertension Qualified Code(s): I10 - Essential (primary) hypertension
[2017-03-22] MEDS: METOPROLOL TARTRATE 50 MG TABLET (FP) PO SCH (10:29)
[2017-03-22] MEDS: LOSARTAN POTASSIUM 50 MG TABLET (FP) PO SCH (10:29)
[2017-03-22] MEDS: LORATADINE 10 MG TABLET PO SCH (10:29)
[2017-03-22] MEDS: FERROUS SO4 325 MG TABLET (FP) PO SCH ×2 (10:29→22:34)
[2017-03-22] MEDS: LACTOBACILLUS ACIDOPHILUS 1 EACH TAB (FP) PO SCH (10:29)
--- NOTE | 2017-03-22 11:33 | PN ---
Progress Note, Physician History of Present Illness: Pt doing well. Ambulating and able to touch ulcer site without significant pain on meds. No new complaints. - Current Medication List Current Medications: Active Medications Acetaminophen (Tylenol -) 650 mg PO Q6H PRN PRN Reason: FEVER OR PAIN Last Admin: 03/21/17 00:11 Dose: 650 mg Collagenase (Santyl -) 1 applic TP DAILY [facility] Last Admin: 03/21/17 16:55 Dose: Not Given Ferrous Sulfate (Feosol -) 325 mg PO BID [facility] Last Admin: 03/22/17 10:29 Dose: 325 mg Heparin Sodium (Porcine) (Heparin -) 5,000 unit SQ TID [facility] Last Admin: 03/22/17 06:35 Dose: 5,000 unit Sodium Chloride (Normal Saline -) 1,000 mls @ 83 mls/hr IV ASDIR [facility] Last Admin: 03/21/17 22:19 Dose: 83 mls/hr Vancomycin HCl 1,250 mg/ (Dextrose) 250 mls @ 166.667 mls/hr IVPB DAILY@1500 PAUL PRN Reason: Protocol Last Admin: 03/21/17 14:47 Dose: 166.667 mls/hr Piperacillin Sod/Tazobactam (Sod 3.375 gm/ Dextrose) 100 mls @ 100 mls/hr IVPB Q8H-IV PAUL PRN Reason: Protocol Last Admin: 03/22/17 10:30 Dose: 100 mls/hr Lactobacillus Acidophilus (Bacid -) 1 tab PO DAILY [facility] Last Admin: 03/22/17 10:29 Dose: 1 tab Loratadine (Claritin -) 10 mg PO DAILY [facility] Last Admin: 03/22/17 10:29 Dose: 10 mg Losartan Potassium (Cozaar -) 50 mg PO DAILY [facility] Last Admin: 03/22/17 10:29 Dose: 50 mg Metoprolol Tartrate (Lopressor -) 50 mg PO DAILY [facility] Last Admin: 03/22/17 10:29 Dose: 50 mg Silver Sulfadiazine (Silvadene -) 1 applic TP DAILY [facility] Last Admin: 03/21/17 16:55 Dose: 1 applic - Objective Vital Signs: Vital Signs Temperature 98.5 F 03/22/17 06:00 Pulse Rate 75 03/22/17 06:00 Respiratory Rate 18 03/22/17 06:00 Blood Pressure 166/66 03/22/17 06:00 O2 Sat by Pulse Oximetry (%) 100 03/21/17 21:00 Constitutional: Yes: No Distress, Calm Cardiovascular: Yes: Regular Rate and Rhythm Respiratory: Yes: CTA Bilaterally Gastrointestinal: Yes: Normal Bowel Sounds, Soft Genitourinary: Yes: WNL Wound/Incision: Yes: Dressing Removed (underlying pink tissue, silvadene applied , otherwise serous drainage) Labs: CBC, BMP 03/22/17 06:30 03/22/17 06:30 Problem List - Problems (1) 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 chronic peripheral venous hypertension Code(s): I87.332 - CHRONIC VENOUS HTN W ULCER AND INFLAMMATION OF L LOW EXTREM (2) HTN (hypertension) Code(s): I10 - ESSENTIAL (PRIMARY) HYPERTENSION Qualifiers: Hypertension type: essential hypertension Qualified Code(s): I10 - Essential (primary) hypertension (3) Infected wound Code(s): T14.8XXA - OTHER INJURY OF UNSPECIFIED BODY REGION, INITIAL ENCOUNTER; L08.9 - LOCAL INFECTION OF THE SKIN AND SUBCUTANEOUS TISSUE, UNSP (4) PVD (peripheral vascular disease) Code(s): I73.9 - PERIPHERAL VASCULAR DISEASE, UNSPECIFIED (5) Venous stasis ulcers of both lower extremities Code(s): I83.019 - VARICOSE VEINS OF RIGHT LOWER EXTREMITY W ULCER OF UNSP SITE ; I83.029 - VARICOSE VEINS OF LEFT LOWER EXTREMITY W ULCER OF UNSP SITE Assessment/Plan Pt had recent hospital admission during which she was treated for polymicrobial infection of extensive b/l LE chronic venous stasis ulcers and had undergone debridement. She completed course of IV and then po antibiotic treatment. States she had horacio boot as outpt but now re-admitted for possible re-infection of LE ulcers. Pain currently controlled, ambulating without pain. - on empiric antibiotics, plan switch to po if continues to improve - vascular surgery f/u - continue wound care
--- NOTE | 2017-03-22 11:40 | PN ---
Progress Note, Physician - Current Medication List Current Medications: Active Medications Acetaminophen (Tylenol -) 650 mg PO Q6H PRN PRN Reason: FEVER OR PAIN Last Admin: 03/21/17 00:11 Dose: 650 mg Collagenase (Santyl -) 1 applic TP DAILY [facility] Last Admin: 03/21/17 16:55 Dose: Not Given Ferrous Sulfate (Feosol -) 325 mg PO BID [facility] Last Admin: 03/22/17 10:29 Dose: 325 mg Heparin Sodium (Porcine) (Heparin -) 5,000 unit SQ TID [facility] Last Admin: 03/22/17 06:35 Dose: 5,000 unit Sodium Chloride (Normal Saline -) 1,000 mls @ 83 mls/hr IV ASDIR [facility] Last Admin: 03/21/17 22:19 Dose: 83 mls/hr Vancomycin HCl 1,250 mg/ (Dextrose) 250 mls @ 166.667 mls/hr IVPB DAILY@1500 PAUL PRN Reason: Protocol Last Admin: 03/21/17 14:47 Dose: 166.667 mls/hr Piperacillin Sod/Tazobactam (Sod 3.375 gm/ Dextrose) 100 mls @ 100 mls/hr IVPB Q8H-IV PAUL PRN Reason: Protocol Last Admin: 03/22/17 10:30 Dose: 100 mls/hr Lactobacillus Acidophilus (Bacid -) 1 tab PO DAILY [facility] Last Admin: 03/22/17 10:29 Dose: 1 tab Loratadine (Claritin -) 10 mg PO DAILY [facility] Last Admin: 03/22/17 10:29 Dose: 10 mg Losartan Potassium (Cozaar -) 50 mg PO DAILY [facility] Last Admin: 03/22/17 10:29 Dose: 50 mg Metoprolol Tartrate (Lopressor -) 50 mg PO DAILY [facility] Last Admin: 03/22/17 10:29 Dose: 50 mg Silver Sulfadiazine (Silvadene -) 1 applic TP DAILY [facility] Last Admin: 03/21/17 16:55 Dose: 1 applic - Objective Vital Signs: Vital Signs Temperature 98.5 F 03/22/17 06:00 Pulse Rate 75 03/22/17 06:00 Respiratory Rate 18 03/22/17 06:00 Blood Pressure 166/66 03/22/17 06:00 O2 Sat by Pulse Oximetry (%) 100 03/21/17 21:00 Cardiovascular: Yes: S1, S2 Respiratory: Yes: Regular, CTA Bilaterally Gastrointestinal: Yes: Normal Bowel Sounds, Soft Wound/Incision: Yes: Dressing Dry and Intact Labs: CBC, BMP 03/22/17 06:30 03/22/17 06:30 Problem List - Problems (1) Infected wound Assessment/Plan: IV ABX MONITOR WOUND CARE PER DR BLANCAS Code(s): T14.8XXA - OTHER INJURY OF UNSPECIFIED BODY REGION, INITIAL ENCOUNTER; L08.9 - LOCAL INFECTION OF THE SKIN AND SUBCUTANEOUS TISSUE, UNSP (2) 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
[2017-03-22] MEDS ORDERED: PT OWN MED DRAWER 7, Y5N ONE ×2 (14:49→17:15)
[2017-03-22] MEDS: VANCOMYCIN 1,250 MG in DEXTROSE 5%-WATER - 250 ML IVPB SCH (14:59)
[2017-03-22] MEDS: SILVER SULFADIAZINE 1% TOP CREAM 50 GM JAR TP SCH (16:14)
[2017-03-22] MEDS: COLLAGENASE CLOSTRIDIUM HIST. 30 GRAMS TUBE TP SCH (16:14)
[2017-03-22] MEDS: SODIUM CHLORIDE 1,000 ML IV SCH ×3 (17:19→17:58)
[2017-03-22] MEDS: ACETAMINOPHEN 325 MG TABLET (FP) PO PRN (22:34)
[2017-03-23] MEDS: PIPERACILLIN/TAZOB 3.375 GM 3.375 GM in DEXTROSE 5%-WATER - 100 ML IVPB SCH ×3 (01:36→17:53)
[2017-03-23] MEDS: SODIUM CHLORIDE 1,000 ML IV SCH ×2 (06:19→20:46)
[2017-03-23] MEDS: HEPARIN NA (PORCINE) 5,000 UNITS/ML 1ML VIAL SQ SCH ×3 (06:22→21:01)
[2017-03-23 08:31] LABS: BASO % 1.1 % (0-2.0); EOS % 6.3 % (0-4.5); HEMATOCRIT 30.8 % (32.4-45.2); HEMOGLOBIN 9.7 GM/dL (10.7-15.3); LYMPH % 30.8 % (8-40); MCH 26.7 pg (25.7-33.7); MCHC 31.5 g/dl (32.0-36.0); MEAN CELL VOLUME 84.7 fl (80-96); MEAN PLT VOLUME 7.3 fl (7.5-11.1); MONO % 8.5 % (3.8-10.2); NEUT % 53.3 % (42.8-82.8); PLATELET COUNT 230 K/MM3 (134-434); RBC 3.63 M/mm3 (3.60-5.2); RDW 16.7 % (11.6-15.6); WHITE BLOOD COUNT 5.7 K/mm3 (4.0-10.0)
[2017-03-23 09:02] LABS: ALBUMIN 2.8 g/dl (3.4-5.0); ALK PHOS 104 U/L (45-117); ANION GAP 9 (8-16); BILIRUBIN,TOTAL 0.4 mg/dL (0.2-1.0); BLOOD UREA NITROGEN 10 mg/dL (7-18); CALCIUM 8.5 mg/dL (8.5-10.1); CHLORIDE 103 mmol/L (98-107); CO2 27 mmol/L (21-32); CREATININE 0.7 mg/dL (0.55-1.02); GLUCOSE,RANDOM 89 mg/dL (74-106); POTASSIUM 3.8 mmol/L (3.5-5.1); SGOT/AST 20 U/L (15-37); SGPT/ALT 15 U/L (12-78); SODIUM 139 mmol/L (136-145); TOT PROT 7.1 g/dl (6.4-8.2)
[2017-03-23] MEDS ORDERED: PT OWN MED DRAWER 7, Y5N ONE ×3 (11:10→20:31)
[2017-03-23] MEDS: LACTOBACILLUS ACIDOPHILUS 1 EACH TAB (FP) PO SCH (11:15)
[2017-03-23] MEDS: LORATADINE 10 MG TABLET PO SCH (11:15)
[2017-03-23] MEDS: METOPROLOL TARTRATE 50 MG TABLET (FP) PO SCH (11:15)
[2017-03-23] MEDS: LOSARTAN POTASSIUM 50 MG TABLET (FP) PO SCH (11:16)
[2017-03-23] MEDS: FERROUS SO4 325 MG TABLET (FP) PO SCH ×2 (11:16→21:01)
--- NOTE | 2017-03-23 12:16 | PN ---
Progress Note, Physician History of Present Illness: stable some pain in the left foot dressings look good - Current Medication List Current Medications: Active Medications Acetaminophen (Tylenol -) 650 mg PO Q6H PRN PRN Reason: FEVER OR PAIN Last Admin: 03/22/17 22:34 Dose: 650 mg Collagenase (Santyl -) 1 applic TP DAILY [facility] Last Admin: 03/22/17 16:14 Dose: Not Given Ferrous Sulfate (Feosol -) 325 mg PO BID [facility] Last Admin: 03/23/17 11:16 Dose: 325 mg Heparin Sodium (Porcine) (Heparin -) 5,000 unit SQ TID [facility] Last Admin: 03/23/17 06:22 Dose: 5,000 unit Sodium Chloride (Normal Saline -) 1,000 mls @ 83 mls/hr IV ASDIR [facility] Last Admin: 03/23/17 06:19 Dose: Not Given Vancomycin HCl 1,250 mg/ (Dextrose) 250 mls @ 166.667 mls/hr IVPB DAILY@1500 [facility] PRN Reason: Protocol Last Admin: 03/22/17 14:59 Dose: 166.667 mls/hr Piperacillin Sod/Tazobactam (Sod 3.375 gm/ Dextrose) 100 mls @ 100 mls/hr IVPB Q8H-IV [facility] PRN Reason: Protocol Last Admin: 03/23/17 11:16 Dose: 100 mls/hr Lactobacillus Acidophilus (Bacid -) 1 tab PO DAILY [facility] Last Admin: 03/23/17 11:15 Dose: 1 tab Loratadine (Claritin -) 10 mg PO DAILY [facility] Last Admin: 03/23/17 11:15 Dose: 10 mg Losartan Potassium (Cozaar -) 50 mg PO DAILY [facility] Last Admin: 03/23/17 11:16 Dose: 50 mg Metoprolol Tartrate (Lopressor -) 50 mg PO DAILY [facility] Last Admin: 03/23/17 11:15 Dose: 50 mg Silver Sulfadiazine (Silvadene -) 1 applic TP DAILY [facility] Last Admin: 03/22/17 16:14 Dose: 1 applic - Objective Vital Signs: Vital Signs Temperature 98.4 F 03/23/17 07:57 Pulse Rate 81 03/23/17 07:57 Respiratory Rate 18 03/23/17 07:57 Blood Pressure 128/87 03/23/17 07:57 O2 Sat by Pulse Oximetry (%) 100 03/22/17 21:00 Constitutional: Yes: No Distress, Calm Cardiovascular: Yes: Regular Rate and Rhythm Respiratory: Yes: Regular, CTA Bilaterally Gastrointestinal: Yes: Normal Bowel Sounds, Soft Musculoskeletal: Yes: Other Extremities: Yes: Other Wound/Incision: Yes: Dressing Dry and Intact Neurological: Yes: Alert, Oriented Psychiatric: Yes: Alert, Oriented Labs: CBC, BMP 03/23/17 07:00 03/23/17 07:00 Assessment/Plan Problem List - Problems (1) 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 chronic peripheral venous hypertension Code(s): I87.332 - CHRONIC VENOUS HTN W ULCER AND INFLAMMATION OF L LOW EXTREM (2) HTN (hypertension) Code(s): I10 - ESSENTIAL (PRIMARY) HYPERTENSION Qualifiers: Hypertension type: essential hypertension Qualified Code(s): I10 - Essential (primary) hypertension (3) Infected wound Code(s): T14.8XXA - OTHER INJURY OF UNSPECIFIED BODY REGION, INITIAL ENCOUNTER; L08.9 - LOCAL INFECTION OF THE SKIN AND SUBCUTANEOUS TISSUE, UNSP (4) PVD (peripheral vascular disease) Code(s): I73.9 - PERIPHERAL VASCULAR DISEASE, UNSPECIFIED (5) Venous stasis ulcers of both lower extremities Code(s): I83.019 - VARICOSE VEINS OF RIGHT LOWER EXTREMITY W ULCER OF UNSP SITE ; I83.029 - VARICOSE VEINS OF LEFT LOWER EXTREMITY W ULCER OF UNSP SITE plan continue abx will check vanco levels tomorrow rest as per wound care continue current mgmt
--- NOTE | 2017-03-23 13:06 | PN ---
Progress Note, Physician Chief Complaint: left foot unwrapped and wound seen with yellowish discharge - Current Medication List Current Medications: Active Medications Acetaminophen (Tylenol -) 650 mg PO Q6H PRN PRN Reason: FEVER OR PAIN Last Admin: 03/22/17 22:34 Dose: 650 mg Collagenase (Santyl -) 1 applic TP DAILY [facility] Last Admin: 03/22/17 16:14 Dose: Not Given Ferrous Sulfate (Feosol -) 325 mg PO BID [facility] Last Admin: 03/23/17 11:16 Dose: 325 mg Heparin Sodium (Porcine) (Heparin -) 5,000 unit SQ TID [facility] Last Admin: 03/23/17 06:22 Dose: 5,000 unit Sodium Chloride (Normal Saline -) 1,000 mls @ 83 mls/hr IV ASDIR [facility] Last Admin: 03/23/17 06:19 Dose: Not Given Vancomycin HCl 1,250 mg/ (Dextrose) 250 mls @ 166.667 mls/hr IVPB DAILY@1500 [facility] PRN Reason: Protocol Last Admin: 03/22/17 14:59 Dose: 166.667 mls/hr Piperacillin Sod/Tazobactam (Sod 3.375 gm/ Dextrose) 100 mls @ 100 mls/hr IVPB Q8H-IV [facility] PRN Reason: Protocol Last Admin: 03/23/17 11:16 Dose: 100 mls/hr Lactobacillus Acidophilus (Bacid -) 1 tab PO DAILY [facility] Last Admin: 03/23/17 11:15 Dose: 1 tab Loratadine (Claritin -) 10 mg PO DAILY [facility] Last Admin: 03/23/17 11:15 Dose: 10 mg Losartan Potassium (Cozaar -) 50 mg PO DAILY [facility] Last Admin: 03/23/17 11:16 Dose: 50 mg Metoprolol Tartrate (Lopressor -) 50 mg PO DAILY [facility] Last Admin: 03/23/17 11:15 Dose: 50 mg Silver Sulfadiazine (Silvadene -) 1 applic TP DAILY [facility] Last Admin: 03/22/17 16:14 Dose: 1 applic - Objective Vital Signs: Vital Signs Temperature 98.4 F 03/23/17 07:57 Pulse Rate 81 03/23/17 07:57 Respiratory Rate 18 03/23/17 07:57 Blood Pressure 128/87 03/23/17 07:57 O2 Sat by Pulse Oximetry (%) 100 03/22/17 21:00 Constitutional: Yes: Calm Cardiovascular: Yes: Regular Rate and Rhythm, S1, S2 Respiratory: Yes: CTA Bilaterally Gastrointestinal: Yes: Normal Bowel Sounds, Soft Wound/Incision: Yes: Other (left foot dressing unwrapped and open) Neurological: Yes: Alert, Oriented Labs: CBC, BMP 03/23/17 07:00 03/23/17 07:00 Problem List - Problems (1) HTN (hypertension) Assessment/Plan: lopressor and cozaar Code(s): I10 - ESSENTIAL (PRIMARY) HYPERTENSION Qualifiers: Hypertension type: essential hypertension Qualified Code(s): I10 - Essential (primary) hypertension (2) Infected wound Assessment/Plan: seen by ID nad wound care team pierce, leg elevation iv abx per ID dvt ppx Code(s): T14.8XXA - OTHER INJURY OF UNSPECIFIED BODY REGION, INITIAL ENCOUNTER; L08.9 - LOCAL INFECTION OF THE SKIN AND SUBCUTANEOUS TISSUE, UNSP
[2017-03-23] MEDS: VANCOMYCIN 1,250 MG in DEXTROSE 5%-WATER - 250 ML IVPB SCH (16:23)
[2017-03-23] MEDS: COLLAGENASE CLOSTRIDIUM HIST. 30 GRAMS TUBE TP SCH (16:35)
[2017-03-23] MEDS: SILVER SULFADIAZINE 1% TOP CREAM 50 GM JAR TP SCH (18:05)
[2017-03-24] MEDS ORDERED: PT OWN MED DRAWER 7, Y5N ONE ×3 (02:12→17:59)
[2017-03-24] MEDS: PIPERACILLIN/TAZOB 3.375 GM 3.375 GM in DEXTROSE 5%-WATER - 100 ML IVPB SCH ×3 (02:16→18:38)
[2017-03-24] MEDS: HEPARIN NA (PORCINE) 5,000 UNITS/ML 1ML VIAL SQ SCH ×3 (06:13→22:14)
[2017-03-24] MEDS: SODIUM CHLORIDE 1,000 ML IV SCH (06:14)
[2017-03-24] MEDS: LOSARTAN POTASSIUM 50 MG TABLET (FP) PO SCH (10:56)
[2017-03-24] MEDS: FERROUS SO4 325 MG TABLET (FP) PO SCH ×2 (10:56→22:13)
[2017-03-24] MEDS: METOPROLOL TARTRATE 50 MG TABLET (FP) PO SCH (10:56)
[2017-03-24] MEDS: LACTOBACILLUS ACIDOPHILUS 1 EACH TAB (FP) PO SCH (10:56)
[2017-03-24] MEDS: LORATADINE 10 MG TABLET PO SCH (10:56)
[2017-03-24] MEDS: COLLAGENASE CLOSTRIDIUM HIST. 30 GRAMS TUBE TP SCH (10:57)
--- NOTE | 2017-03-24 13:19 | PN ---
Progress Note, Physician History of Present Illness: patient stable doing well no complaints - Current Medication List Current Medications: Active Medications Acetaminophen (Tylenol -) 650 mg PO Q6H PRN PRN Reason: FEVER OR PAIN Last Admin: 03/22/17 22:34 Dose: 650 mg Collagenase (Santyl -) 1 applic TP DAILY [facility] Last Admin: 03/24/17 10:57 Dose: Not Given Ferrous Sulfate (Feosol -) 325 mg PO BID [facility] Last Admin: 03/24/17 10:56 Dose: 325 mg Heparin Sodium (Porcine) (Heparin -) 5,000 unit SQ TID [facility] Last Admin: 03/24/17 06:13 Dose: 5,000 unit Sodium Chloride (Normal Saline -) 1,000 mls @ 83 mls/hr IV ASDIR [facility] Last Admin: 03/24/17 06:14 Dose: Not Given Vancomycin HCl 1,250 mg/ (Dextrose) 250 mls @ 166.667 mls/hr IVPB DAILY@1500 [facility] PRN Reason: Protocol Last Admin: 03/23/17 16:23 Dose: 166.667 mls/hr Piperacillin Sod/Tazobactam (Sod 3.375 gm/ Dextrose) 100 mls @ 100 mls/hr IVPB Q8H-IV [facility] PRN Reason: Protocol Last Admin: 03/24/17 10:56 Dose: 100 mls/hr Lactobacillus Acidophilus (Bacid -) 1 tab PO DAILY [facility] Last Admin: 03/24/17 10:56 Dose: 1 tab Loratadine (Claritin -) 10 mg PO DAILY [facility] Last Admin: 03/24/17 10:56 Dose: 10 mg Losartan Potassium (Cozaar -) 50 mg PO DAILY [facility] Last Admin: 03/24/17 10:56 Dose: 50 mg Metoprolol Tartrate (Lopressor -) 50 mg PO DAILY [facility] Last Admin: 03/24/17 10:56 Dose: 50 mg Silver Sulfadiazine (Silvadene -) 1 applic TP DAILY [facility] Last Admin: 03/23/17 18:05 Dose: 1 applic - Objective Vital Signs: Vital Signs Temperature 98.2 F 03/24/17 10:00 Pulse Rate 91 H 03/24/17 10:00 Respiratory Rate 18 03/24/17 10:00 Blood Pressure 151/88 03/24/17 10:00 O2 Sat by Pulse Oximetry (%) 98 03/24/17 09:00 Constitutional: Yes: No Distress, Calm Cardiovascular: Yes: Regular Rate and Rhythm Respiratory: Yes: Regular, CTA Bilaterally Gastrointestinal: Yes: Normal Bowel Sounds, Soft Musculoskeletal: Yes: WNL Extremities: Yes: Other Wound/Incision: Yes: Dressing Dry and Intact Neurological: Yes: Alert, Oriented Psychiatric: Yes: Alert, Oriented Labs: CBC, BMP 03/23/17 07:00 03/23/17 07:00 Assessment/Plan Problem List - Problems (1) 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 chronic peripheral venous hypertension Code(s): I87.332 - CHRONIC VENOUS HTN W ULCER AND INFLAMMATION OF L LOW EXTREM (2) HTN (hypertension) Code(s): I10 - ESSENTIAL (PRIMARY) HYPERTENSION Qualifiers: Hypertension type: essential hypertension Qualified Code(s): I10 - Essential (primary) hypertension (3) Infected wound Code(s): T14.8XXA - OTHER INJURY OF UNSPECIFIED BODY REGION, INITIAL ENCOUNTER; L08.9 - LOCAL INFECTION OF THE SKIN AND SUBCUTANEOUS TISSUE, UNSP (4) PVD (peripheral vascular disease) Code(s): I73.9 - PERIPHERAL VASCULAR DISEASE, UNSPECIFIED (5) Venous stasis ulcers of both lower extremities Code(s): I83.019 - VARICOSE VEINS OF RIGHT LOWER EXTREMITY W ULCER OF UNSP SITE ; I83.029 - VARICOSE VEINS OF LEFT LOWER EXTREMITY W ULCER OF UNSP SITE plan vanco level noted continue current abx patient will need a total of 14 days of abx rest as per primary team patient has been treated before and inspite of that she has got infection again patients bacteria is resistant to lot of abx--and there is no oral options for pseudomonas
[2017-03-24] MEDS ORDERED: PICC LINE 8 ML FLUSH PROTOCOL IVPUSH PRN (15:34)
--- NOTE | 2017-03-24 15:35 | DS ---
Physical Examination Vital Signs: Vital Signs Temperature 98.2 F 03/24/17 10:00 Pulse Rate 91 H 03/24/17 10:00 Respiratory Rate 18 03/24/17 10:00 Blood Pressure 151/88 03/24/17 10:00 O2 Sat by Pulse Oximetry (%) 98 03/24/17 09:00 Constitutional: Yes: Mild Distress Eyes: Yes: WNL HENT: Yes: WNL Neck: Yes: WNL Cardiovascular: Yes: WNL Respiratory: Yes: WNL Gastrointestinal: Yes: WNL Renal/: Yes: WNL Musculoskeletal: Yes: Muscle Weakness Extremities: Yes: Deformity Edema: No Peripheral Pulses WNL: Yes Integumentary: Yes: Pressure Ulcer Wound/Incision: Yes: Dressing Removed, Excoriated, Unapproximated Neurological: Yes: Pre-Existing Deficit ...Motor Strength: LLE, RLE Psychiatric: Yes: WNL Labs: CBC, BMP 03/23/17 07:00 03/23/17 07:00 Discharge Summary Reason For Visit: LOCAL INFECTION OF WOUND,STASIS DERMATITIS OF LOWE Current Active Problems 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 chronic peripheral venous hypertension (Acute) Hospital Course: admitted for iv abx worsening ilcers lower extremities. picc line and dc to snf for 14 days iv meropenem Condition: Stable - Instructions Diet, Activity, Other Instructions: low sodium wound care follow up dr ashok oshea sx Referrals: Tanner Shannon [Primary Care Provider] - Disposition: [facility] - Home Medications Comprehensive Discharge Medication List: Ambulatory Orders Aspirin [Aspirin EC] 1 tab PO DAILY 06/02/14 Loratadine 10 mg PO DAILY 02/14/17 Acetaminophen [Tylenol .Regular Strength -] 650 mg PO Q6H PRN tablet 02/24/17 Ferrous Sulfate [Feosol] 325 mg PO BID [facility] 02/24/17 Lactobacillus Acidophilus [Bacid -] 1 tab PO DAILY #30 tab 02/24/17 Losartan Potassium [Cozaar -] 50 mg PO DAILY tablet 02/24/17 Metoprolol Tartrate [Lopressor -] 50 mg PO DAILY tablet 02/24/17
[2017-03-24] MEDS: VANCOMYCIN 1,250 MG in DEXTROSE 5%-WATER - 250 ML IVPB SCH (15:53)
[2017-03-24] MEDS: SILVER SULFADIAZINE 1% TOP CREAM 50 GM JAR TP SCH (15:54)
--- NOTE | 2017-03-24 16:53 | PN ---
Progress Note (short form) - Note Progress Note: Vascular Surgery Pt seen and examined. Spoke to ID. Pt will probably need 14 total days of antibiotics. Pt will probably go to SNF for the remaining days. Ulcers getting better. Leg elevation. Evelio Kevin DO
[2017-03-25] MEDS: PIPERACILLIN/TAZOB 3.375 GM 3.375 GM in DEXTROSE 5%-WATER - 100 ML IVPB SCH ×3 (01:46→18:19)
[2017-03-25] MEDS: HEPARIN NA (PORCINE) 5,000 UNITS/ML 1ML VIAL SQ SCH ×3 (07:46→21:08)
[2017-03-25] MEDS ORDERED: PT OWN MED DRAWER 7, Y5N ONE ×5 (10:39→14:25)
[2017-03-25] MEDS: LACTOBACILLUS ACIDOPHILUS 1 EACH TAB (FP) PO SCH (10:49)
[2017-03-25] MEDS: METOPROLOL TARTRATE 50 MG TABLET (FP) PO SCH (10:49)
[2017-03-25] MEDS: LOSARTAN POTASSIUM 50 MG TABLET (FP) PO SCH (10:49)
[2017-03-25] MEDS: FERROUS SO4 325 MG TABLET (FP) PO SCH ×2 (10:49→21:08)
[2017-03-25] MEDS: LORATADINE 10 MG TABLET PO SCH (10:49)
[2017-03-25] MEDS: SILVER SULFADIAZINE 1% TOP CREAM 50 GM JAR TP SCH (10:52)
[2017-03-25] MEDS: COLLAGENASE CLOSTRIDIUM HIST. 30 GRAMS TUBE TP SCH (14:29)
--- NOTE | 2017-03-25 15:25 | PN ---
Progress Note, Physician History of Present Illness: patient stable dressing removed wound looked at both wounds are healing well drainage minimal patient doing well - Current Medication List Current Medications: Active Medications Acetaminophen (Tylenol -) 650 mg PO Q6H PRN PRN Reason: FEVER OR PAIN Last Admin: 03/22/17 22:34 Dose: 650 mg Collagenase (Santyl -) 1 applic TP DAILY [facility] Last Admin: 03/25/17 14:29 Dose: 1 applic Ferrous Sulfate (Feosol -) 325 mg PO BID [facility] Last Admin: 03/25/17 10:49 Dose: 325 mg Heparin Sodium (Porcine) (Heparin -) 5,000 unit SQ TID [facility] Last Admin: 03/25/17 14:29 Dose: 5,000 unit IV Flush (Picc Line Flush) 8 ml IVPUSH PRN PRN PRN Reason: Protocol Vancomycin HCl 1,250 mg/ (Dextrose) 250 mls @ 166.667 mls/hr IVPB DAILY@1500 [facility] PRN Reason: Protocol Last Admin: 03/24/17 15:53 Dose: 166.667 mls/hr Piperacillin Sod/Tazobactam (Sod 3.375 gm/ Dextrose) 100 mls @ 100 mls/hr IVPB Q8H-IV [facility] PRN Reason: Protocol Last Admin: 03/25/17 10:49 Dose: 100 mls/hr Lactobacillus Acidophilus (Bacid -) 1 tab PO DAILY [facility] Last Admin: 03/25/17 10:49 Dose: 1 tab Loratadine (Claritin -) 10 mg PO DAILY [facility] Last Admin: 03/25/17 10:49 Dose: 10 mg Losartan Potassium (Cozaar -) 50 mg PO DAILY [facility] Last Admin: 03/25/17 10:49 Dose: 50 mg Metoprolol Tartrate (Lopressor -) 50 mg PO DAILY [facility] Last Admin: 03/25/17 10:49 Dose: 50 mg Silver Sulfadiazine (Silvadene -) 1 applic TP DAILY [facility] Last Admin: 03/25/17 10:52 Dose: 1 applic - Objective Vital Signs: Vital Signs Temperature 99.4 F 03/25/17 06:12 Pulse Rate 78 03/25/17 06:12 Respiratory Rate 20 03/25/17 06:12 Blood Pressure 154/60 03/25/17 06:12 O2 Sat by Pulse Oximetry (%) 98 03/24/17 09:00 Constitutional: Yes: Calm Cardiovascular: Yes: Regular Rate and Rhythm Respiratory: Yes: Regular, CTA Bilaterally Gastrointestinal: Yes: Normal Bowel Sounds, Soft Musculoskeletal: Yes: WNL Extremities: Yes: Other Wound/Incision: Yes: Other (dressing removed wound looking good) Neurological: Yes: Alert, Oriented Psychiatric: Yes: Alert, Oriented Labs: CBC, BMP 03/23/17 07:00 03/23/17 07:00 Assessment/Plan Problem List - Problems (1) 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 chronic peripheral venous hypertension Code(s): I87.332 - CHRONIC VENOUS HTN W ULCER AND INFLAMMATION OF L LOW EXTREM (2) HTN (hypertension) Code(s): I10 - ESSENTIAL (PRIMARY) HYPERTENSION Qualifiers: Hypertension type: essential hypertension Qualified Code(s): I10 - Essential (primary) hypertension (3) Infected wound Code(s): T14.8XXA - OTHER INJURY OF UNSPECIFIED BODY REGION, INITIAL ENCOUNTER; L08.9 - LOCAL INFECTION OF THE SKIN AND SUBCUTANEOUS TISSUE, UNSP (4) PVD (peripheral vascular disease) Code(s): I73.9 - PERIPHERAL VASCULAR DISEASE, UNSPECIFIED (5) Venous stasis ulcers of both lower extremities Code(s): I83.019 - VARICOSE VEINS OF RIGHT LOWER EXTREMITY W ULCER OF UNSP SITE ; I83.029 - VARICOSE VEINS OF LEFT LOWER EXTREMITY W ULCER OF UNSP SITE plan continue current mgmt ct abx wound care total 14 days of abx
[2017-03-25] MEDS: VANCOMYCIN 1,250 MG in DEXTROSE 5%-WATER - 250 ML IVPB SCH (15:29)
[2017-03-26] MEDS ORDERED: PT OWN MED DRAWER 7, Y5N ONE ×2 (00:38→17:48)
[2017-03-26] MEDS: PIPERACILLIN/TAZOB 3.375 GM 3.375 GM in DEXTROSE 5%-WATER - 100 ML IVPB SCH ×3 (01:22→18:10)
[2017-03-26] MEDS: LACTOBACILLUS ACIDOPHILUS 1 EACH TAB (FP) PO SCH (09:46)
[2017-03-26] MEDS: FERROUS SO4 325 MG TABLET (FP) PO SCH ×2 (09:46→21:29)
[2017-03-26] MEDS: LOSARTAN POTASSIUM 50 MG TABLET (FP) PO SCH (09:46)
[2017-03-26] MEDS: LORATADINE 10 MG TABLET PO SCH (09:46)
[2017-03-26] MEDS: METOPROLOL TARTRATE 50 MG TABLET (FP) PO SCH (09:46)
[2017-03-26] MEDS: SILVER SULFADIAZINE 1% TOP CREAM 50 GM JAR TP SCH (09:47)
[2017-03-26] MEDS: COLLAGENASE CLOSTRIDIUM HIST. 30 GRAMS TUBE TP SCH (09:47)
--- NOTE | 2017-03-26 11:17 | PN ---
Progress Note, Physician History of Present Illness: stable no new issues - Current Medication List Current Medications: Active Medications Acetaminophen (Tylenol -) 650 mg PO Q6H PRN PRN Reason: FEVER OR PAIN Last Admin: 03/22/17 22:34 Dose: 650 mg Collagenase (Santyl -) 1 applic TP DAILY [facility] Last Admin: 03/26/17 09:47 Dose: 1 applic Ferrous Sulfate (Feosol -) 325 mg PO BID [facility] Last Admin: 03/26/17 09:46 Dose: 325 mg IV Flush (Picc Line Flush) 8 ml IVPUSH PRN PRN PRN Reason: Protocol Vancomycin HCl 1,250 mg/ (Dextrose) 250 mls @ 166.667 mls/hr IVPB DAILY@1500 [facility] PRN Reason: Protocol Last Admin: 03/25/17 15:29 Dose: 166.667 mls/hr Piperacillin Sod/Tazobactam (Sod 3.375 gm/ Dextrose) 100 mls @ 100 mls/hr IVPB Q8H-IV [facility] PRN Reason: Protocol Last Admin: 03/26/17 09:46 Dose: 100 mls/hr Lactobacillus Acidophilus (Bacid -) 1 tab PO DAILY [facility] Last Admin: 03/26/17 09:46 Dose: 1 tab Loratadine (Claritin -) 10 mg PO DAILY [facility] Last Admin: 03/26/17 09:46 Dose: 10 mg Losartan Potassium (Cozaar -) 50 mg PO DAILY [facility] Last Admin: 03/26/17 09:46 Dose: 50 mg Metoprolol Tartrate (Lopressor -) 50 mg PO DAILY [facility] Last Admin: 03/26/17 09:46 Dose: 50 mg Silver Sulfadiazine (Silvadene -) 1 applic TP DAILY [facility] Last Admin: 03/26/17 09:47 Dose: 1 applic - Objective Vital Signs: Vital Signs Temperature 98.1 F 03/26/17 09:00 Pulse Rate 92 H 03/26/17 10:02 Respiratory Rate 16 03/26/17 09:00 Blood Pressure 149/69 03/26/17 09:00 O2 Sat by Pulse Oximetry (%) 97 03/26/17 10:02 Constitutional: Yes: No Distress, Calm Cardiovascular: Yes: Regular Rate and Rhythm Respiratory: Yes: Regular, CTA Bilaterally Gastrointestinal: Yes: Normal Bowel Sounds, Soft Musculoskeletal: Yes: WNL Extremities: Yes: Other Wound/Incision: Yes: Dressing Dry and Intact Neurological: Yes: Alert, Oriented Labs: CBC, BMP 03/23/17 07:00 03/23/17 07:00 Assessment/Plan Problem List - Problems (1) 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 chronic peripheral venous hypertension Code(s): I87.332 - CHRONIC VENOUS HTN W ULCER AND INFLAMMATION OF L LOW EXTREM (2) HTN (hypertension) Code(s): I10 - ESSENTIAL (PRIMARY) HYPERTENSION Qualifiers: Hypertension type: essential hypertension Qualified Code(s): I10 - Essential (primary) hypertension (3) Infected wound Code(s): T14.8XXA - OTHER INJURY OF UNSPECIFIED BODY REGION, INITIAL ENCOUNTER; L08.9 - LOCAL INFECTION OF THE SKIN AND SUBCUTANEOUS TISSUE, UNSP (4) PVD (peripheral vascular disease) Code(s): I73.9 - PERIPHERAL VASCULAR DISEASE, UNSPECIFIED (5) Venous stasis ulcers of both lower extremities Code(s): I83.019 - VARICOSE VEINS OF RIGHT LOWER EXTREMITY W ULCER OF UNSP SITE ; I83.029 - VARICOSE VEINS OF LEFT LOWER EXTREMITY W ULCER OF UNSP SITE 6 [facility] wound infection plan continue current mgmt ct abx wound care total 14 days of abx
[2017-03-26] MEDS: VANCOMYCIN 1,250 MG in DEXTROSE 5%-WATER - 250 ML IVPB SCH (14:40)
[2017-03-27] MEDS ORDERED: PT OWN MED DRAWER 7, Y5N ONE ×2 (01:51→09:50)
[2017-03-27] MEDS: PIPERACILLIN/TAZOB 3.375 GM 3.375 GM in DEXTROSE 5%-WATER - 100 ML IVPB SCH ×2 (02:08→10:26)
--- NOTE | 2017-03-27 10:14 | PN ---
Progress Note, Physician History of Present Illness: stable no new issues - Current Medication List Current Medications: Active Medications Acetaminophen (Tylenol -) 650 mg PO Q6H PRN PRN Reason: FEVER OR PAIN Last Admin: 03/22/17 22:34 Dose: 650 mg Collagenase (Santyl -) 1 applic TP DAILY [facility] Last Admin: 03/26/17 09:47 Dose: 1 applic Ferrous Sulfate (Feosol -) 325 mg PO BID [facility] Last Admin: 03/26/17 21:29 Dose: 325 mg IV Flush (Picc Line Flush) 8 ml IVPUSH PRN PRN PRN Reason: Protocol Vancomycin HCl 1,250 mg/ (Dextrose) 250 mls @ 166.667 mls/hr IVPB DAILY@1500 [facility] PRN Reason: Protocol Last Admin: 03/26/17 14:40 Dose: 166.667 mls/hr Piperacillin Sod/Tazobactam (Sod 3.375 gm/ Dextrose) 100 mls @ 100 mls/hr IVPB Q8H-IV [facility] PRN Reason: Protocol Last Admin: 03/27/17 02:08 Dose: 100 mls/hr Lactobacillus Acidophilus (Bacid -) 1 tab PO DAILY [facility] Last Admin: 03/26/17 09:46 Dose: 1 tab Loratadine (Claritin -) 10 mg PO DAILY [facility] Last Admin: 03/26/17 09:46 Dose: 10 mg Losartan Potassium (Cozaar -) 50 mg PO DAILY [facility] Last Admin: 03/26/17 09:46 Dose: 50 mg Metoprolol Tartrate (Lopressor -) 50 mg PO DAILY [facility] Last Admin: 03/26/17 09:46 Dose: 50 mg Silver Sulfadiazine (Silvadene -) 1 applic TP DAILY [facility] Last Admin: 03/26/17 09:47 Dose: 1 applic - Objective Vital Signs: Vital Signs Temperature 98 F 03/27/17 06:24 Pulse Rate 65 03/27/17 06:24 Respiratory Rate 20 03/27/17 06:24 Blood Pressure 147/97 03/27/17 06:24 O2 Sat by Pulse Oximetry (%) 97 03/26/17 21:00 Constitutional: Yes: No Distress, Calm Cardiovascular: Yes: Regular Rate and Rhythm Respiratory: Yes: Regular, CTA Bilaterally Gastrointestinal: Yes: Normal Bowel Sounds, Soft Musculoskeletal: Yes: Other Extremities: Yes: Other Wound/Incision: Yes: Dressing Dry and Intact Neurological: Yes: Alert, Oriented Psychiatric: Yes: Alert, Oriented Labs: CBC, BMP 03/23/17 07:00 03/23/17 07:00 Assessment/Plan Problem List - Problems (1) 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 chronic peripheral venous hypertension Code(s): I87.332 - CHRONIC VENOUS HTN W ULCER AND INFLAMMATION OF L LOW EXTREM (2) HTN (hypertension) Code(s): I10 - ESSENTIAL (PRIMARY) HYPERTENSION Qualifiers: Hypertension type: essential hypertension Qualified Code(s): I10 - Essential (primary) hypertension (3) Infected wound Code(s): T14.8XXA - OTHER INJURY OF UNSPECIFIED BODY REGION, INITIAL ENCOUNTER; L08.9 - LOCAL INFECTION OF THE SKIN AND SUBCUTANEOUS TISSUE, UNSP (4) PVD (peripheral vascular disease) Code(s): I73.9 - PERIPHERAL VASCULAR DISEASE, UNSPECIFIED (5) Venous stasis ulcers of both lower extremities Code(s): I83.019 - VARICOSE VEINS OF RIGHT LOWER EXTREMITY W ULCER OF UNSP SITE ; I83.029 - VARICOSE VEINS OF LEFT LOWER EXTREMITY W ULCER OF UNSP SITE 6 [facility] wound infection plan continue current mgmt ct abx wound care total 14 days of abx will check vanco level
[2017-03-27] MEDS: LORATADINE 10 MG TABLET PO SCH (10:26)
[2017-03-27] MEDS: LOSARTAN POTASSIUM 50 MG TABLET (FP) PO SCH (10:26)
[2017-03-27] MEDS: FERROUS SO4 325 MG TABLET (FP) PO SCH (10:26)
[2017-03-27] MEDS: METOPROLOL TARTRATE 50 MG TABLET (FP) PO SCH (10:26)
[2017-03-27] MEDS: LACTOBACILLUS ACIDOPHILUS 1 EACH TAB (FP) PO SCH (10:26)
[2017-03-27] MEDS: COLLAGENASE CLOSTRIDIUM HIST. 30 GRAMS TUBE TP SCH (10:27)
[2017-03-27] MEDS: SILVER SULFADIAZINE 1% TOP CREAM 50 GM JAR TP SCH (10:27)
[2017-03-27 10:42] VITALS: BP 149/84; PULSE 96; TEMP 98.4
== END 2017-03-27 12:10 | DRG 197 ==
LOC: JER 16:21 → JERBED 21:58 → J8W 03-20 14:26
PROVIDERS: ADMIT Family Medicine; ATTEND Family Medicine
PROC: 02HV33Z Insertion of Infusion Device into Superior Vena Cava, Percutaneous Approach (ICD-10-PCS; principal; 2017-03-26)
PROC: B518YZA Fluoroscopy of Superior Vena Cava using Other Contrast, Guidance (ICD-10-PCS; 2017-03-26)
DX: I87.332 Chronic venous hypertension (idiopathic) with ulcer and inflammation of left lower extremity (principal); L03.115 Cellulitis of right lower limb; I87.2 Venous insufficiency (chronic) (peripheral); I10 Essential (primary) hypertension; I25.10 Atherosclerotic heart disease of native coronary artery without angina pectoris; E87.1 Hypo-osmolality and hyponatremia; D64.9 Anemia, unspecified; I73.9 Peripheral vascular disease, unspecified; L03.116 Cellulitis of left lower limb; B95.62 Methicillin resistant Staphylococcus aureus infection as the cause of diseases classified elsewhere; L08.9 Local infection of the skin and subcutaneous tissue, unspecified; I83.019 Varicose veins of right lower extremity with ulcer of unspecified site
CPT/HCPCS: 29581-LT; 29581-RT; 36415; 36569; 71045-TC; 77001-TC; 80048; 80053; 81003; 81015; 83605; 83735; 84100; 85025; 87040; 87086; 93005; 93010; 99283-25; A6197; C1751; G0463-25; G0480; J1644

== ENCOUNTER 2020-09-15 10:54 | Day surgery (SDC) | payer OTHER ==
[2020-09-15] MEDS ORDERED: FERRIC CARBOXYMALTOSE 750 MG in SODIUM CHLORIDE 250 ML IVPB SCH (11:30)
[2020-09-15 13:31] VITALS: BP 121/73; PULSE 72; TEMP 97.8
== END 2020-09-15 13:00 | disposition home or self-care (01) ==
LOC: FINFUSION 10:54 → FM/S 10:56 → FINFUSION 13:00
PROVIDERS: ATTEND Family Medicine
PROC: 3E033GC Introduction of Other Therapeutic Substance into Peripheral Vein, Percutaneous Approach (ICD-10-PCS; principal; 2020-09-15)
DX: D50.9 Iron deficiency anemia, unspecified (principal)
CPT/HCPCS: 96365; J1439

== ENCOUNTER 2020-09-29 10:44 | Day surgery (SDC) | payer OTHER ==
[2020-09-29] MEDS ORDERED: FERRIC CARBOXYMALTOSE 750 MG in SODIUM CHLORIDE 250 ML IVPB ONE (11:30)
[2020-09-29 11:53] VITALS: TEMP 98
[2020-09-29 12:41] VITALS: BP 134/52; PULSE 70
== END 2020-09-29 12:44 | disposition home or self-care (01) ==
LOC: FINFUSION 10:44 → FM/S 10:49 → FINFUSION 12:44
PROVIDERS: ATTEND Family Medicine
PROC: 3E033GC Introduction of Other Therapeutic Substance into Peripheral Vein, Percutaneous Approach (ICD-10-PCS; principal; 2020-09-29)
DX: D50.9 Iron deficiency anemia, unspecified (principal)
CPT/HCPCS: 96365; J1439

== ENCOUNTER 2021-10-23 10:50 | Day surgery (SDC) | payer OTHER ==
[2021-10-23] MEDS ORDERED: FERRIC CARBOXYMALTOSE 750 MG in SODIUM CHLORIDE 250 ML IVPB ONE (11:30)
[2021-10-23 12:12] VITALS: BP 153/62; PULSE 64; RESP 18; TEMP 98.9
== END 2021-10-23 12:33 | disposition home or self-care (01) ==
LOC: FINFUSION 10:50 → FM/S 10:52 → FINFUSION 12:33
PROVIDERS: ATTEND Family Medicine
PROC: 3E033GC Introduction of Other Therapeutic Substance into Peripheral Vein, Percutaneous Approach (ICD-10-PCS; principal; 2021-10-23)
DX: D50.9 Iron deficiency anemia, unspecified (principal)
CPT/HCPCS: 96365; J1439

== ENCOUNTER 2021-10-30 11:16 | Day surgery (SDC) | payer OTHER ==
[2021-10-30] MEDS ORDERED: FERRIC CARBOXYMALTOSE 750 MG in SODIUM CHLORIDE 250 ML IVPB ONE (13:00)
[2021-10-30 16:53] VITALS: BP 158/56; PULSE 98; RESP 18; TEMP 97.6
== END 2021-10-30 13:55 | disposition home or self-care (01) ==
LOC: FINFUSION 11:16 → FM/S 11:17 → FINFUSION 13:55
PROVIDERS: ATTEND Family Medicine
PROC: 3E033GC Introduction of Other Therapeutic Substance into Peripheral Vein, Percutaneous Approach (ICD-10-PCS; principal; 2021-10-30)
DX: D50.9 Iron deficiency anemia, unspecified (principal)
CPT/HCPCS: 96365; J1439